=== PATIENT | female | born 1990 | race Caucasian/White ===

== ENCOUNTER → 2021-06-21 09:44 | Outpatient (BNVA) | payer OTHER, SELFPAY | PROVIDERS: Family Provider Registered Nurse; PCP Nurse Practitioner Family; Visit Provider Nurse Practitioner Women's Health | DX: N92.6 Irregular menstruation, unspecified (principal) | CPT/HCPCS: 84702 ==

== ENCOUNTER → 2021-09-23 10:46 | Outpatient (BNVA) | payer OTHER, SELFPAY | PROVIDERS: Family Provider Registered Nurse; PCP Nurse Practitioner Family; Visit Provider Surgery | DX: L05.91 Pilonidal cyst without abscess (principal); L05.01 Pilonidal cyst with abscess; L05.92 Pilonidal sinus without abscess; Z20.822 Contact with and (suspected) exposure to COVID-19 | CPT/HCPCS: 87635 ==

== ENCOUNTER 2021-09-29 06:26 | Day surgery (SDC) | payer OTHER, MEDICAID, SELFPAY ==
[2021-09-28 13:26] VITALS: BMI 41.5
[2021-09-29] VITALS (8 sets, daily range): BP systolic 107–155; BP diastolic 59–98; PULSE 92–101; RESP 16–20; TEMP 36.5–37.1; O2SAT 92–97
[2021-09-29 07:25] LABS: Glucose Point of Care 317 mg/dL (70-110)
[2021-09-29 07:34] LABS: OR HCG Qualitative Urine Negative (Negative)
[2021-09-29] MEDS: sodium chloride 0.9% 1,000 ML 30 ML IV (07:45)
[2021-09-29] MEDS: insulin regular-human 100 units/1 mL 3 UNIT IVP (07:47)
--- NOTE | 2021-09-29 07:50 | W.PM.OPSUD ---
Surgery/Procedure H&P Update DATE OF PROCEDURE: September 29, 2021 DATE H&P PERFORMED: 09/23/21 H&P UPDATE INFORMATION: I have reviewed H&P completed within last 30 days, I have examined patient prior to procedure and No changes to prior documentation PREOP DIAGNOSIS: Pilonidal abscess PLANNED PROCEDURE: Operation Date: 09/29/21 08:00 Proposed Procedures p Pilonidal Cystectomy 55595/L05.91(Not Applicable) - David Farias MD
--- NOTE | 2021-09-29 07:54 | P.ANESASSM_ITS ---
Pre-Anesthetic Assessment Height/Weight: Height 1.65 m Weight 113.398 kg Temp Pulse Resp BP Pulse Ox 98.7 F 92 18 155/98 96 09/29/21 06:55 09/29/21 06:55 09/29/21 06:55 09/29/21 06:55 09/29/21 06:55 Preop Diagnosis: Pilonidal abscess Operation Date: 09/29/21 08:00 Proposed Procedures p Pilonidal Cystectomy 99362/L05.91(Not Applicable) - David Farias MD Was Beta Joseph taken within 24 hours: Yes Was Clonidine taken within 24 hours: N/A Last intake: Intake Last Liquid Date 09/28/21 Last Liquid Time 22:00 Last Solid Date 09/28/21 Last Solid Time 22:00 Social No tobacco Exam alert, oriented x 3, clear to auscultation bilaterally and regular rate & rhythm Airway Submandibular: within normal limits Cervical ROM: within normal limits Mallampati: Class II History/ROS No significant history except as noted and No significant complaints Pulmonary None reported CV/HEM Hypertension None reported Hepatic None reported GI None reported Metabolic Morbid Obesity Anesthetic Plan ASA status: 3 Anesthesia: Anesthesia Evaluation and General Risk of > 500 ml blood loss (7ml/kg in children): No Medications/Allergies Home Medications Medication Instructions Recorded Confirmed Last Taken Type labetalol 100 mg tablet 50 mg PO BID tab 01/14/21 09/29/21 09/29/21 History levonorgestrel 0.15 mg-ethinyl 1 tab PO DAILY #84 tab 09/27/21 09/28/21 Unknown Rx estradiol 0.03 mg tablet (Levora-28) Allergies Allergy/AdvReac Type Severity Reaction Status Date / Time No Known Allergies Allergy Verified 09/28/21 13:25 [facility] Anesthesia Medical History Diabetes Hypertension Pilonidal abscess Surgical History H/O oral surgery Hx of section 04/13/2019-----> primary low transverse delivery performed by Dr. rivas for nonreassuring heart tracing at [facility]. Double layer closure with no extensions. Family History Father Diabetes Hypertension Mother Hypertension Family/Other Breast cancer Maternal Great Aunt-- dx age 70's Denies family history of Colon cancer Ovarian cancer Heart disease Uterine cancer Thyroid disease Stroke Social History Smoking and tobacco status: never smoked Data Anesthesia Cardiac Studies: No Data to Display
--- NOTE | 2021-09-29 08:51 | P.OP_ITS ---
Operative Report Date of procedure: September 29, 2021 Pre-op diagnosis: Recurrent pilonidal abscess Post-op diagnosis: pilonidal cyst with sinus tract x2 Procedure done: 1. Pilonidal cystectomy 2. Intermediate closure in layers of a wound measuring 6 x 2.5 x 2 cm deep Specimens removed/disposition: Excised skin and subcutaneous tissue from the [facility] Surgeon: David Farias Anesthesia: General Condition: stable Disposition: PACU Procedure: The patient was taken to the operating room, intubated under general anesthesia and placed in prone position. The area around the pilonidal cyst was prepped and draped in a sterile manner. Using a lacrimal probe the pilonidal sinuses were probed. Using a 15 blade an elliptical incision measuring 6 cm was made in corporating the pilonidal cyst and sinuses. The subcutaneous tissue was divided down to the fascia using electrocautery and the specimen was sent to pathology. The wound measured 6 x 2.5 x 2.5 cm. Bilateral subcutaneous flaps were created using electrocautery. The wound was irrigated with saline, hemostasis ensured and the wound was closed in layers using interrupted 3-0 Vicryl sutures. The s kin was closed using interrupted 3-0 Prolene suture. Antibiotic cream and sterile dressings were applied. The patient was extubated and transferred to recovery room in stable condition.
[2021-09-29] MEDS: HYDROcodone-acetaminophen 5-325 mg Tablet 1 TAB PO (09:50)
--- NOTE | 2021-09-29 14:22 | ANE.PACU2 ---
Inpatient post-anesthesia follow up: Airway intact: Yes Vital signs: Temperature 97.9 F Pulse Rate 97 Respiratory Rate 18 Blood Pressure 109/65 Pulse Oximetry 96 Oxygen Delivery Me thod Room Air Oxygen Flow Rate 6 Fraction of Inspir ed Oxygen Hydration adequate: Yes Nausea and vomiting: No Pain level: 6 Mental status: Baseline
== END 2021-09-29 10:10 | disposition home or self-care (01) ==
PROVIDERS: Anesthesiology; PCP Nurse Practitioner Family; Visit Provider Surgery
PROC: (CPT 11770; principal; 2021-09-29 08:00)
DX: L05.91 Pilonidal cyst without abscess (principal); E66.01 Morbid (severe) obesity due to excess calories; Z68.41 Body mass index [BMI] 40.0-44.9, adult; E11.9 Type 2 diabetes mellitus without complications; I10 Essential (primary) hypertension; Z82.49 Family history of ischemic heart disease and other diseases of the circulatory system; Z83.3 Family history of diabetes mellitus
CPT/HCPCS: 11770; 36416; 81025; 82962; 84703; 88304; J0690; J1815; J2250; J3010; J3490; J7030

== ENCOUNTER → 2022-09-19 16:16 | Outpatient (BNVA) | payer OTHER, MEDICAID, SELFPAY | PROVIDERS: PCP Nurse Practitioner Family; Visit Provider Nurse Practitioner Women's Health | DX: Z01.419 Encounter for gynecological examination (general) (routine) without abnormal findings (principal); Z78.9 Other specified health status; E11.9 Type 2 diabetes mellitus without complications | CPT/HCPCS: 83036; 86762; 87624 ==

== ENCOUNTER → 2022-12-25 14:14 | Outpatient (BNVA) | payer OTHER, MEDICAID, SELFPAY | PROVIDERS: PCP Nurse Practitioner Family; Visit Provider Nurse Practitioner Women's Health | DX: Z32.00 Encounter for pregnancy test, result unknown (principal) | CPT/HCPCS: 81025 ==

== ENCOUNTER 2023-01-08 12:50 | Outpatient (CLI) | payer OTHER, MEDICAID, SELFPAY ==
--- NOTE | 2023-01-08 13:00 | US_ITS ---
WS: [id number] EARLY OBSTETRICAL ULTRASOUND (<14 WEEKS). HISTORY: O09.899 - Supervision of other high risk pregnancies, unsure of dates. COMPARISON: None available. Single intrauterine gestational sac is identified. Normal decidual reaction. There is a small yolk sa c noted on the transvaginal imaging. No pole or cardiac activity. No subchorionic hemorrhage. G estational sac measurement of 1.2 cm corresponds to gestation of 6 weeks and 1 day. No free fluid. No adnexal masses. US/US OB <= 14 weeks fetus [id number] IMPRESSION: 1. Gestational sac with a mean diameter of 1.2 cm corresponds to gestation of 6 weeks and 1 day. Typically at this age cardiac activity is identified. 2. There is a normal yolk sac but no pole identified or cardiac activity at this time. Recommend one week ultrasound follow-up.
== END 2023-01-08 12:51 | disposition home or self-care (01) ==
LOC: RAD 12:53
PROVIDERS: PCP Nurse Practitioner Family; Visit Provider Nurse Practitioner Women's Health
DX: O09.891 Supervision of other high risk pregnancies, first trimester (principal); Z3A.01 Less than 8 weeks gestation of pregnancy
CPT/HCPCS: 76801; 83036; 84315

== ENCOUNTER → 2023-01-11 08:54 | Outpatient (BNVA) | payer OTHER, MEDICAID, SELFPAY | PROVIDERS: PCP Nurse Practitioner Family; Visit Provider Obstetrics & Gynecology | DX: N92.6 Irregular menstruation, unspecified (principal) | CPT/HCPCS: 84702 ==

== ENCOUNTER → 2023-01-12 14:09 | Outpatient (BNVA) | payer OTHER, MEDICAID, SELFPAY | PROVIDERS: PCP Nurse Practitioner Family; Visit Provider Obstetrics & Gynecology | DX: O09.899 Supervision of other high risk pregnancies, unspecified trimester (principal) | CPT/HCPCS: 80307; 81000; 85027; 86850; 86900; 87086 ==

== ENCOUNTER → 2023-01-22 12:21 | Outpatient (BNVA) | payer OTHER, SELFPAY | PROVIDERS: PCP Nurse Practitioner Family; Visit Provider Obstetrics & Gynecology | DX: Z36.87 Encounter for antenatal screening for uncertain dates (principal); O09.899 Supervision of other high risk pregnancies, unspecified trimester; Z3A.08 8 weeks gestation of pregnancy | CPT/HCPCS: 76817; 81000 ==

== ENCOUNTER → 2023-02-19 15:20 | Outpatient (BNVA) | payer OTHER, SELFPAY | PROVIDERS: PCP Nurse Practitioner Family; Visit Provider Obstetrics & Gynecology | DX: O09.899 Supervision of other high risk pregnancies, unspecified trimester (principal) | CPT/HCPCS: 76801; 86592; 86762; 86803; 87340; 87806 ==

== ENCOUNTER 2023-02-23 15:51 | Outpatient (CLI) | payer OTHER, SELFPAY ==
--- NOTE | 2023-02-23 16:25 | ECG_ITS ---
[facility] Test Date: 2023-02-23 Pat Name: Jeannie Zamora Department: Room: Gender: Female Director Microbiology: : 1990 Requested By: Anson Gill Order Number: [id number] Shakeel MD: Adenike Paul M.D. Measurements Intervals [place] Rate: 70 P: 51 LA: 158 QRS: 32 QRSD: 85 T: 5 QT: 398 QTc: 430 Interpretive Statements SINUS RHYTHM POSSIBLE ANTERIOR MYOCARDIAL INFARCTION , PROBABLY OLD [30 ms Q WAVE IN V3/V4, OR R < 0.2 mV IN V4] No previous ECG available for comparison Electronically Signed On 02-24-2023 6:57:24 CDT by Adenike Paul M.D. [id number]
== END 2023-02-23 15:52 | disposition home or self-care (01) ==
PROVIDERS: PCP Nurse Practitioner Family; Visit Provider Obstetrics & Gynecology
DX: R00.2 Palpitations (principal); R94.31 Abnormal electrocardiogram [ECG] [EKG]
CPT/HCPCS: 93005

== ENCOUNTER → 2023-03-02 13:50 | Outpatient (BNVA) | payer OTHER, SELFPAY | PROVIDERS: PCP Nurse Practitioner Family; Visit Provider Nurse Practitioner Women's Health | DX: O09.899 Supervision of other high risk pregnancies, unspecified trimester (principal); R00.2 Palpitations | CPT/HCPCS: 81000; 84443; 87491; 87591; 87661 ==

== ENCOUNTER → 2023-03-16 12:56 | Outpatient (BNVA) | payer OTHER, SELFPAY | PROVIDERS: PCP Nurse Practitioner Family; Visit Provider Nurse Practitioner Women's Health | DX: O09.899 Supervision of other high risk pregnancies, unspecified trimester (principal); Z86.79 Personal history of other diseases of the circulatory system; Z36.9 Encounter for antenatal screening, unspecified | CPT/HCPCS: 81000; 82105; 87086 ==

== ENCOUNTER 2023-03-26 15:56 | Outpatient (CLI) | payer OTHER, MEDICAID, SELFPAY ==
[2023-03-26 17:48] LABS: Urine Total Protein 4.4 mg/dL (0-150)
[2023-03-26 20:19] LABS: Total Volume, Urine 3000 mL
== END 2023-03-26 15:57 | disposition home or self-care (01) ==
PROVIDERS: Nurse Practitioner Women's Health; PCP Nurse Practitioner Family; Visit Provider Family Medicine
DX: Z86.79 Personal history of other diseases of the circulatory system (principal)
CPT/HCPCS: 81000; 84156

== ENCOUNTER → 2023-04-02 15:00 | Outpatient (BNVA) | payer OTHER, SELFPAY | PROVIDERS: PCP Nurse Practitioner Family; Visit Provider Obstetrics & Gynecology | DX: O09.899 Supervision of other high risk pregnancies, unspecified trimester (principal) | CPT/HCPCS: 81000 ==

== ENCOUNTER → 2023-04-25 12:24 | Outpatient (BNVA) | payer OTHER, SELFPAY | PROVIDERS: PCP Nurse Practitioner Family; Visit Provider Obstetrics & Gynecology | DX: O09.899 Supervision of other high risk pregnancies, unspecified trimester (principal); Z3A.20 20 weeks gestation of pregnancy | CPT/HCPCS: 76805 ==

== ENCOUNTER → 2023-05-17 14:00 | Outpatient (BNVA) | payer SELFPAY | PROVIDERS: PCP Nurse Practitioner Family; Visit Provider Nurse Practitioner Women's Health | DX: O09.899 Supervision of other high risk pregnancies, unspecified trimester (principal); O24.319 Unspecified pre-existing diabetes mellitus in pregnancy, unspecified trimester; Z86.79 Personal history of other diseases of the circulatory system; Z36.2 Encounter for other antenatal screening follow-up; Z3A.24 24 weeks gestation of pregnancy | CPT/HCPCS: 81000 ==

== ENCOUNTER → 2023-05-21 15:23 | Outpatient (BNVA) | payer OTHER, SELFPAY | PROVIDERS: PCP Nurse Practitioner Family; Visit Provider Obstetrics & Gynecology | DX: O09.899 Supervision of other high risk pregnancies, unspecified trimester (principal); Z3A.00 Weeks of gestation of pregnancy not specified | CPT/HCPCS: 76816 ==

== ENCOUNTER → 2023-06-08 13:57 | Outpatient (BNVA) | payer OTHER, SELFPAY | PROVIDERS: PCP Nurse Practitioner Family; Visit Provider Obstetrics & Gynecology | DX: O09.899 Supervision of other high risk pregnancies, unspecified trimester (principal) | CPT/HCPCS: 81000; 85025 ==

== ENCOUNTER → 2023-06-15 14:35 | Outpatient (BNVA) | payer OTHER, SELFPAY | PROVIDERS: PCP Nurse Practitioner Family; Visit Provider Obstetrics & Gynecology | DX: O09.899 Supervision of other high risk pregnancies, unspecified trimester (principal) | CPT/HCPCS: 81000 ==

== ENCOUNTER → 2023-06-22 14:28 | Outpatient (BNVA) | payer OTHER, SELFPAY | PROVIDERS: PCP Nurse Practitioner Family; Visit Provider Obstetrics & Gynecology | DX: O09.899 Supervision of other high risk pregnancies, unspecified trimester (principal) | CPT/HCPCS: 81000 ==

== ENCOUNTER 2023-07-04 18:15 | Outpatient (CLI) | payer OTHER, MEDICAID, SELFPAY ==
[2023-07-04] VITALS (13 sets, daily range): BP systolic 136–170; BP diastolic 76–95; PULSE 72–82; RESP 16; BMI 38.1
[2023-07-04 20:40] LABS: Add Urine Microscopic? NO; Charge for UA Resulting for Rev
[2023-07-04 20:41] LABS: Basophils % 0.3 %; Eosinophils # 0.1 10^3/uL (0.0-0.8); Eosinophils % 1.5 %; Hematocrit 42.4 % (36-47); Lymphocytes # 2.2 10^3/uL (0.8-4.8); Lymphocytes % 22.6 %; Mean Corpuscular HGB Conc 33.3 g/dL (30-55); Mean Corpuscular Hemoglobin 29.2 pg (27-33); Mean Corpuscular Volume 87.8 fl (85-98); Mean Platelet Volume 11.4 fL (7.4-10.4); Monocytes # 0.8 10^3/uL (0.2-0.9); Monocytes % 8.1 %; Neutrophils # 6.46 10^3/uL (1.8-7.7); Neutrophils % 67.2 %; Nucleated Red Blood Cells % 0 %; Platelet Count 222 10^3/cmm (157-399); Red Blood Count 4.83 10^6/uL (3.85-5.65); Red Cell Distribution Width 13.2 % (12.1-15.1); White Blood Count 9.61 10^3/uL (3.29-11.43)
[2023-07-04 20:42] LABS: Bilirubin Urine Neg (Negative); Blood Urine Neg (Negative); Glucose Urine UA Norm (Normal); Ketones Urine Negative (Negative); Leukocyte Esterase Urine Negative (Negative); Nitrate Urine Negative (Negative); Protein Urine Neg (Negative); Specific Gravity, Urine 1.005 (1.005-1.030); Urine Appearance Clear (CLEAR); Urine Color Light yellow (Yellow); Urobilinogen Urine Neg (Negative); pH Urine 6.5 (5-7)
[2023-07-04 21:18] LABS: Alanine Aminotransferase 26 U/L (0-33); Albumin Level 3.8 g/dL (3.5-5.2); Alkaline Phosphatase 39 U/L (35-105); Blood Urea Nitrogen 6 mg/dL (6-20); Calcium 8.9 mg/dL (8.5-10.5); Carbon Dioxide 20 mmol/L (22-29); Chloride 102 mmol/L (98-107); Globulin 3.7 g/dL (1.3-4.6); Glomerular Filtration Rate 187.4 mL/min (90-130); Glucose 78 mg/dL (65-115); Osmolality Calculated 276 mOsm/kg (285-295); Sodium 135 mmol/L (136-145); Total Bilirubin 0.5 mg/dL (0.15-1.2); Total Protein 7.5 g/dL (6.6-8.7); Uric Acid 4.2 mg/dL (2.4-5.7)
[2023-07-04 21:19] LABS: Anion Gap 16.6 (5-19); Aspartate Amino Transferase 27 U/L (0-32); Potassium 3.6 mmol/L (3.5-5.1)
[2023-07-04 21:29] LABS: Urine Creatinine 30 mg/dL (28-217); Urine Protein Random 4 mg/dL
[2023-07-04 21:34] LABS: UPRO/UCREAT Ratio 0.13 mg/mg CR
== END 2023-07-04 22:00 | disposition home or self-care (01) ==
LOC: OPOB 18:22 → OBGYN 21:43
PROVIDERS: Obstetrics & Gynecology; PCP Nurse Practitioner Family; Visit Provider Obstetrics & Gynecology
DX: O16.9 Unspecified maternal hypertension, unspecified trimester (principal); Z3A.00 Weeks of gestation of pregnancy not specified
CPT/HCPCS: 36415; 59025; 80053; 81003; 82570; 84156; 84550; 85025; 99211

== ENCOUNTER → 2023-07-06 07:53 | Outpatient (BNVA) | payer OTHER, SELFPAY | PROVIDERS: PCP Nurse Practitioner Family; Visit Provider Obstetrics & Gynecology | DX: O09.899 Supervision of other high risk pregnancies, unspecified trimester (principal) | CPT/HCPCS: 81000 ==

== ENCOUNTER → 2023-07-10 12:27 | Outpatient (BNVA) | payer OTHER, SELFPAY | PROVIDERS: PCP Nurse Practitioner Family; Visit Provider Obstetrics & Gynecology | DX: O24.913 Unspecified diabetes mellitus in pregnancy, third trimester (principal); Z3A.33 33 weeks gestation of pregnancy | CPT/HCPCS: 76815; 76819 ==

== ENCOUNTER 2023-07-10 12:59 | Outpatient (CLI) | payer OTHER, SELFPAY ==
[2023-07-10 13:00] VITALS: BMI 38.2
[2023-07-10 13:15] VITALS: BP 150/83; PULSE 77
[2023-07-10 13:25] VITALS: RESP 18; TEMP 36.2
[2023-07-10 13:39] VITALS: BP 134/81; PULSE 76
[2023-07-10 13:49] VITALS: BP 134/81; PULSE 76; RESP 18; TEMP 36.2
== END 2023-07-10 13:45 | disposition home or self-care (01) ==
LOC: OPOB 13:03 → OBGYN 13:03
PROVIDERS: PCP Nurse Practitioner Family; Visit Provider Obstetrics & Gynecology
DX: O24.419 Gestational diabetes mellitus in pregnancy, unspecified control (principal); Z3A.00 Weeks of gestation of pregnancy not specified
CPT/HCPCS: 59025; 99211

== ENCOUNTER → 2023-07-13 14:32 | Outpatient (BNVA) | payer OTHER, SELFPAY | PROVIDERS: PCP Nurse Practitioner Family; Visit Provider Obstetrics & Gynecology | DX: O09.899 Supervision of other high risk pregnancies, unspecified trimester (principal) | CPT/HCPCS: 81000 ==

== ENCOUNTER 2023-07-17 12:55 | Outpatient (CLI) | payer OTHER, MEDICAID, SELFPAY ==
[2023-07-17 13:16] VITALS: BP 139/84; PULSE 76; RESP 16; BMI 38.7
[2023-07-17 13:26] VITALS: BP 134/80; PULSE 81
[2023-07-17 13:36] VITALS: BP 136/80; PULSE 76
[2023-07-17 13:38] VITALS: RESP 18
== END 2023-07-17 13:40 | disposition home or self-care (01) ==
LOC: OPOB 12:57 → OBGYN 12:57
PROVIDERS: PCP Nurse Practitioner Family; Visit Provider Obstetrics & Gynecology
DX: O24.419 Gestational diabetes mellitus in pregnancy, unspecified control (principal); Z3A.00 Weeks of gestation of pregnancy not specified
CPT/HCPCS: 59025; 76819

== ENCOUNTER → 2023-07-24 12:37 | Outpatient (BNVA) | payer OTHER, SELFPAY | PROVIDERS: PCP Nurse Practitioner Family; Visit Provider Obstetrics & Gynecology | DX: Z34.03 Encounter for supervision of normal first pregnancy, third trimester (principal) | CPT/HCPCS: 76819 ==

== ENCOUNTER 2023-07-24 13:05 | Outpatient (CLI) | payer OTHER, MEDICAID, SELFPAY ==
[2023-07-24 13:22] VITALS: BP 138/78; PULSE 76
[2023-07-24 13:37] VITALS: BP 136/80; PULSE 76
[2023-07-24 13:45] VITALS: RESP 17
[2023-07-24 13:47] VITALS: BMI 39.6
[2023-07-24 13:52] VITALS: BP 130/77; PULSE 78
== END 2023-07-24 13:58 | disposition home or self-care (01) ==
LOC: OPOB 13:16 → OBGYN 13:18
PROVIDERS: PCP Nurse Practitioner Family; Visit Provider Obstetrics & Gynecology
DX: O24.419 Gestational diabetes mellitus in pregnancy, unspecified control (principal); Z3A.00 Weeks of gestation of pregnancy not specified
CPT/HCPCS: 59025; 99211

== ENCOUNTER → 2023-07-27 08:44 | Outpatient (BNVA) | payer OTHER, SELFPAY | PROVIDERS: PCP Nurse Practitioner Family; Visit Provider Obstetrics & Gynecology | DX: O09.899 Supervision of other high risk pregnancies, unspecified trimester (principal); Z3A.35 35 weeks gestation of pregnancy | CPT/HCPCS: 81000 ==

== ENCOUNTER → 2023-07-31 12:19 | Outpatient (BNVA) | payer OTHER, SELFPAY | PROVIDERS: PCP Nurse Practitioner Family; Visit Provider Obstetrics & Gynecology | DX: O24.313 Unspecified pre-existing diabetes mellitus in pregnancy, third trimester (principal); Z3A.35 35 weeks gestation of pregnancy | CPT/HCPCS: 76819 ==

== ENCOUNTER 2023-07-31 12:54 | Outpatient (CLI) | payer OTHER, MEDICAID, SELFPAY ==
[2023-07-31 13:11] VITALS: BP 142/88; PULSE 76
[2023-07-31 13:31] VITALS: BP 142/92; PULSE 80
[2023-07-31 13:44] VITALS: BP 139/75; PULSE 77
[2023-07-31 13:54] VITALS: BP 125/69; PULSE 71
[2023-07-31 14:01] VITALS: BP 125/69; PULSE 71
== END 2023-07-31 14:00 | disposition home or self-care (01) ==
LOC: OPOB 12:57 → OBGYN 12:59
PROVIDERS: PCP Nurse Practitioner Family; Visit Provider Obstetrics & Gynecology
DX: O24.419 Gestational diabetes mellitus in pregnancy, unspecified control (principal); Z3A.00 Weeks of gestation of pregnancy not specified; O16.9 Unspecified maternal hypertension, unspecified trimester
CPT/HCPCS: 59025; 99211

== ENCOUNTER 2023-08-02 15:05 | Outpatient (CLI) | payer OTHER, MEDICAID, SELFPAY ==
[2023-08-02] VITALS (10 sets, daily range): BP systolic 138–160; BP diastolic 79–94; PULSE 78–93; RESP 15; BMI 39.1
--- NOTE | 2023-08-02 15:40 | USR_ITS ---
PROCEDURE INFORMATION: Exam: US Biophysical Profile Without Non-Stress Test Exam date and time: 08/02/2023 4:15 PM Age: 32 years old Clinical indication: Condition or disease; Other: Hypertension and type2 diabetes; TECHNIQUE: Imaging protocol: US biophysical profile without non-stress testing. COMPARISON: US OB BPP NST [id number] 07/31/2023 12:28 PM FINDINGS: heart rate: 138 bpm Amniotic fluid index: DIVYA is 21.05 cm. Which is within upper range of normal (5-25). Okay me of clock ovary cure BIOPHYSICAL PROFILE: breathing movement (BPP): 2 out of 2. body movement (BPP): 2 out of 2. tone (BPP): 2 out of 2. Amniotic fluid (BPP): 2 out of 2. MATERNAL ANATOMY: Cervix: Cervical length measures 3.65 cm. US/US OB BPP NST 38781 IMPRESSION: Normal biophysical profile 03/13
[2023-08-02 16:05] LABS: Basophils % 0.3 %; Eosinophils # 0.1 10^3/uL (0.0-0.8); Eosinophils % 0.6 %; Hematocrit 39.1 % (36-47); Lymphocytes # 2.4 10^3/uL (0.8-4.8); Lymphocytes % 20.8 %; Mean Corpuscular Hemoglobin 29.4 pg (27-33); Mean Corpuscular Volume 86.5 fl (85-98); Mean Platelet Volume 11.1 fL (7.4-10.4); Monocytes % 8.4 %; Neutrophils % 69.5 %; Nucleated Red Blood Cells % 0 %; Platelet Count 241 10^3/cmm (157-399); Red Blood Count 4.52 10^6/uL (3.85-5.65); Red Cell Distribution Width 12.9 % (12.1-15.1); White Blood Count 11.37 10^3/uL (3.29-11.43)
[2023-08-02 16:41] LABS: Alanine Aminotransferase 14 U/L (0-33); Albumin Level 3.3 g/dL (3.5-5.2); Alkaline Phosphatase 54 U/L (35-105); Blood Urea Nitrogen 11 mg/dL (6-20); Calcium 8.6 mg/dL (8.5-10.5); Carbon Dioxide 20 mmol/L (22-29); Chloride 102 mmol/L (98-107); Globulin 3.4 g/dL (1.3-4.6); Glomerular Filtration Rate 144.9 mL/min (90-130); Glucose 129 mg/dL (65-115); Osmolality Calculated 283 mOsm/kg (285-295); Sodium 136 mmol/L (136-145); Total Bilirubin 0.2 mg/dL (0.15-1.2); Total Protein 6.7 g/dL (6.6-8.7); Uric Acid 5.1 mg/dL (2.4-5.7)
[2023-08-02 16:43] LABS: Anion Gap 18.4 (5-19); Aspartate Amino Transferase 19 U/L (0-32); Potassium 4.4 mmol/L (3.5-5.1)
[2023-08-02 17:03] LABS: Add Urine Microscopic? NO; Charge for UA Resulting for Rev
[2023-08-02 17:25] LABS: Bilirubin Urine Neg (Negative); Blood Urine Neg (Negative); Glucose Urine UA Norm (Normal); Ketones Urine Negative (Negative); Leukocyte Esterase Urine Negative (Negative); Nitrate Urine Negative (Negative); Protein Urine Neg (Negative); Urine Appearance Clear (CLEAR); Urine Color Yellow (Yellow); Urobilinogen Urine Norm (Negative); pH Urine 6 (5-7)
[2023-08-02 17:42] LABS: Urine Creatinine 56 mg/dL (28-217); Urine Protein Random 6 mg/dL
[2023-08-02 17:43] LABS: UPRO/UCREAT Ratio 0.11 mg/mg CR
--- NOTE | 2023-08-02 18:04 | PC.NURSE ---
Prescription called to [facility] pharmacy in [facility] for: Labetalol 100mg BID #60, no refills from Dr Hinton
== END 2023-08-02 18:00 | disposition home or self-care (01) ==
LOC: OPOB 15:09 → OBGYN 15:10
PROVIDERS: PCP Nurse Practitioner Family; Visit Provider Obstetrics & Gynecology
DX: O16.9 Unspecified maternal hypertension, unspecified trimester (principal); Z3A.00 Weeks of gestation of pregnancy not specified
CPT/HCPCS: 59025; 76819; 80053; 81000; 81003; 82570; 84156; 84550; 85025; 87081; 99211

== ENCOUNTER → 2023-08-07 12:36 | Outpatient (BNVA) | payer OTHER, MEDICAID, SELFPAY | PROVIDERS: PCP Nurse Practitioner Family; Visit Provider Obstetrics & Gynecology | DX: Z34.93 Encounter for supervision of normal pregnancy, unspecified, third trimester (principal); E11.9 Type 2 diabetes mellitus without complications; Z3A.38 38 weeks gestation of pregnancy | CPT/HCPCS: 76815; 76819 ==

== ENCOUNTER 2023-08-07 13:15 | Outpatient (CLI) | payer OTHER, MEDICAID, SELFPAY ==
[2023-08-07 13:26] VITALS: BP 159/104; PULSE 82
[2023-08-07 13:42] VITALS: BP 135/83; PULSE 80
[2023-08-07 13:57] VITALS: BP 135/86; PULSE 77
[2023-08-07 14:07] VITALS: BMI 39.1
[2023-08-07 14:12] VITALS: BP 139/86; PULSE 77
[2023-08-07 14:30] VITALS: BP 139/86; PULSE 77
== END 2023-08-07 14:30 ==
LOC: OPOB 13:19 → OBGYN 13:20
PROVIDERS: PCP Nurse Practitioner Family; Visit Provider Obstetrics & Gynecology
DX: O16.9 Unspecified maternal hypertension, unspecified trimester (principal); Z3A.00 Weeks of gestation of pregnancy not specified
CPT/HCPCS: 59025; 99211

== ENCOUNTER 2023-08-10 15:30 | Outpatient (CLI) | payer OTHER, MEDICAID, SELFPAY ==
[2023-08-10 15:56] VITALS: BP 165/93; PULSE 76
[2023-08-10 16:22] LABS: Nitrazine Paper, PH Negative
[2023-08-10 16:30] VITALS: BP 140/86; PULSE 78
[2023-08-10 16:40] LABS: Urine Creatinine 34 mg/dL (28-217); Urine Protein Random 4 mg/dL
[2023-08-10 16:50] VITALS: BP 155/89; PULSE 76
[2023-08-10 16:50] LABS: UPRO/UCREAT Ratio 0.12 mg/mg CR
== END 2023-08-10 17:10 | disposition home or self-care (01) ==
LOC: OPOB 15:44 → OBGYN 16:58
PROVIDERS: PCP Nurse Practitioner Family; Visit Provider Obstetrics & Gynecology
DX: O16.9 Unspecified maternal hypertension, unspecified trimester (principal); Z3A.00 Weeks of gestation of pregnancy not specified
CPT/HCPCS: 59025; 81000; 82570; 83986; 84156; 99211

== ENCOUNTER → 2023-08-14 10:43 | Outpatient (BNVA) | payer OTHER, MEDICAID, SELFPAY | PROVIDERS: PCP Nurse Practitioner Family; Visit Provider Obstetrics & Gynecology | DX: O09.899 Supervision of other high risk pregnancies, unspecified trimester (principal) | CPT/HCPCS: 76819 ==

== ENCOUNTER 2023-08-14 11:00 | Outpatient (CLI) | payer OTHER, MEDICAID, SELFPAY ==
[2023-08-14] VITALS (8 sets, daily range): BP systolic 143–185; BP diastolic 91–101; PULSE 72–83
[2023-08-14 12:22] LABS: Basophils % 0.4 %; Eosinophils # 0.1 10^3/uL (0.0-0.8); Hematocrit 39.8 % (36-47); Lymphocytes # 2.3 10^3/uL (0.8-4.8); Lymphocytes % 21.5 %; Mean Corpuscular HGB Conc 32.9 g/dL (30-55); Mean Corpuscular Volume 88.2 fl (85-98); Mean Platelet Volume 10.7 fL (7.4-10.4); Monocytes # 0.9 10^3/uL (0.2-0.9); Monocytes % 7.9 %; Neutrophils # 7.37 10^3/uL (1.8-7.7); Neutrophils % 68.7 %; Nucleated Red Blood Cells % 0 %; Platelet Count 212 10^3/cmm (157-399); Red Blood Count 4.51 10^6/uL (3.85-5.65); White Blood Count 10.73 10^3/uL (3.29-11.43)
[2023-08-14 12:45] LABS: Add Urine Microscopic? YES; Bilirubin Urine Neg (Negative); Blood Urine Neg (Negative); Glucose Urine UA Norm (Normal); Ketones Urine Negative (Negative); Leukocyte Esterase Urine Negative (Negative); Nitrate Urine Negative (Negative); Protein Urine Neg (Negative); Specific Gravity, Urine 1.015 (1.005-1.030); Urine Appearance SL Hazy (CLEAR); Urine Color Yellow (Yellow); Urobilinogen Urine Norm (Negative); pH Urine 6 (5-7)
[2023-08-14 12:49] LABS: Add Urine Culture? No; Bacteria Urine TRACE /hpf; Mucus Urine TRACE /hpf; RBC Urine 0-4 /hpf (0-2); WBC Urine 0-4 /hpf (0-5)
[2023-08-14 12:50] LABS: Alanine Aminotransferase 11 U/L (0-33); Albumin Level 3.1 g/dL (3.5-5.2); Alkaline Phosphatase 61 U/L (35-105); Anion Gap 15.1 (5-19); Aspartate Amino Transferase 11 U/L (0-32); Blood Urea Nitrogen 9 mg/dL (6-20); Calcium 8.8 mg/dL (8.5-10.5); Carbon Dioxide 22 mmol/L (22-29); Chloride 103 mmol/L (98-107); Globulin 3.4 g/dL (1.3-4.6); Glomerular Filtration Rate 117.4 mL/min (90-130); Glucose 87 mg/dL (65-115); Osmolality Calculated 280 mOsm/kg (285-295); Potassium 4.1 mmol/L (3.5-5.1); Sodium 136 mmol/L (136-145); Total Bilirubin 0.5 mg/dL (0.15-1.2); Total Protein 6.5 g/dL (6.6-8.7); Uric Acid 4.5 mg/dL (2.4-5.7)
[2023-08-14 12:55] LABS: Urine Creatinine 127 mg/dL (28-217); Urine Protein Random 10 mg/dL
[2023-08-14 12:56] LABS: UPRO/UCREAT Ratio 0.08 mg/mg CR
--- NOTE | 2023-08-14 13:00 | PC.NURSE ---
patient stated that she had received written information about pre-elcampsia, reeducated that if she experiences any of the symptoms or has any concerns to return to labor and delivery to be evaluated
== END 2023-08-14 13:02 | disposition home or self-care (01) ==
LOC: OPOB 11:03 → OBGYN 11:07
PROVIDERS: PCP Nurse Practitioner Family; Visit Provider Obstetrics & Gynecology
DX: O24.419 Gestational diabetes mellitus in pregnancy, unspecified control (principal); Z3A.00 Weeks of gestation of pregnancy not specified
CPT/HCPCS: 36415; 59025; 80053; 81001; 82570; 84156; 84550; 85025; 99211

== ENCOUNTER → 2023-08-17 09:57 | Outpatient (BNVA) | payer OTHER, SELFPAY | PROVIDERS: PCP Nurse Practitioner Family; Visit Provider Obstetrics & Gynecology | DX: O09.899 Supervision of other high risk pregnancies, unspecified trimester (principal) | CPT/HCPCS: 81000 ==

== ENCOUNTER → 2023-08-21 12:32 | Outpatient (BNVA) | payer OTHER, MEDICAID, SELFPAY | PROVIDERS: PCP Nurse Practitioner Family; Visit Provider Obstetrics & Gynecology | DX: O24.419 Gestational diabetes mellitus in pregnancy, unspecified control (principal) | CPT/HCPCS: 76819 ==

== ENCOUNTER 2023-08-21 13:52 | Outpatient (CLI) | payer OTHER, SELFPAY ==
[2023-08-21 13:57] VITALS: BP 143/85; PULSE 71
[2023-08-21 14:17] VITALS: BP 140/90; PULSE 75
[2023-08-21 14:32] VITALS: BP 148/92; PULSE 73
== END 2023-08-21 14:49 ==
LOC: OPOB 13:53 → OBGYN 13:54
PROVIDERS: PCP Nurse Practitioner Family; Visit Provider Obstetrics & Gynecology
DX: O24.419 Gestational diabetes mellitus in pregnancy, unspecified control (principal); Z3A.00 Weeks of gestation of pregnancy not specified
CPT/HCPCS: 59025

== ENCOUNTER 2023-08-25 08:17 | Inpatient (IN) | payer OTHER, MEDICAID, SELFPAY ==
[2023-08-24] VITALS (95 sets, daily range): BP systolic 128–205; BP diastolic 64–118; PULSE 63–111; RESP 18; TEMP 36.2; BMI 40.7
[2023-08-24 09:33] LABS: Add Urine Microscopic? NO; Charge for UA Resulting for Rev
[2023-08-24 09:39] LABS: Bilirubin Urine Neg (Negative); Blood Urine Neg (Negative); Glucose Urine UA Norm (Normal); Ketones Urine Negative (Negative); Leukocyte Esterase Urine Negative (Negative); Nitrate Urine Negative (Negative); Protein Urine Neg (Negative); Specific Gravity, Urine 1.005 (1.005-1.030); Urine Appearance Clear (CLEAR); Urine Color Yellow (Yellow); Urobilinogen Urine Neg (Negative); pH Urine 6.5 (5-7)
[2023-08-24 09:42] LABS: Basophils # 0.1 10^3/uL (0.0-0.1); Basophils % 0.4 %; Eosinophils # 0.1 10^3/uL (0.0-0.8); Hematocrit 40.6 % (36-47); Lymphocytes # 2.8 10^3/uL (0.8-4.8); Lymphocytes % 20.2 %; Mean Corpuscular HGB Conc 33.7 g/dL (30-55); Mean Corpuscular Hemoglobin 29.8 pg (27-33); Mean Corpuscular Volume 88.3 fl (85-98); Mean Platelet Volume 11.6 fL (7.4-10.4); Monocytes % 7.3 %; Neutrophils # 9.65 10^3/uL (1.8-7.7); Neutrophils % 70.4 %; Nucleated Red Blood Cells % 0 %; Platelet Count 228 10^3/cmm (157-399); Red Cell Distribution Width 13.1 % (12.1-15.1); White Blood Count 13.71 10^3/uL (3.29-11.43)
[2023-08-24] MEDS: labetalol 5 mg/mL SDV 20mL 20 MG IVP ×3 (09:48→19:33)
[2023-08-24] MEDS: lactated ringers 1,000 ML 125 ML IV (09:49)
[2023-08-24] MEDS: oxytocin 30 UNIT/500 ML BAG IV (09:52)
[2023-08-24 09:59] LABS: UPRO/UCREAT Ratio 0.22 mg/mg CR; Urine Creatinine 18 mg/dL (28-217); Urine Protein Random 4 mg/dL
[2023-08-24 10:00] LABS: Alanine Aminotransferase 12 U/L (0-33); Albumin Level 3.2 g/dL (3.5-5.2); Alkaline Phosphatase 72 U/L (35-105); Anion Gap 17.8 (5-19); Aspartate Amino Transferase 14 U/L (0-32); Blood Urea Nitrogen 14 mg/dL (6-20); Calcium 8.9 mg/dL (8.5-10.5); Carbon Dioxide 19 mmol/L (22-29); Chloride 103 mmol/L (98-107); Globulin 3.5 g/dL (1.3-4.6); Glomerular Filtration Rate 144.9 mL/min (90-130); Glucose 111 mg/dL (65-115); Osmolality Calculated 283 mOsm/kg (285-295); Potassium 3.8 mmol/L (3.5-5.1); Sodium 136 mmol/L (136-145); Total Bilirubin 0.2 mg/dL (0.15-1.2); Total Protein 6.7 g/dL (6.6-8.7); Uric Acid 4.8 mg/dL (2.4-5.7)
--- NOTE | 2023-08-24 10:00 | PC.NURSE ---
pt used her glucose monitor to check blood sugar. blood sugar was 102.
[2023-08-24] MEDS: labetalol 5 mg/mL SDV 20mL 40 MG IVP (10:18)
--- NOTE | 2023-08-24 12:59 | PC.NURSE ---
pt blood sugar is 79 per pts glucose monitor
[2023-08-24] MEDS: dextrose 5%-lactated ringers 1,000 ML 125 ML IV (17:27)
[2023-08-24] MEDS: labetalol 200 mg Tablet 100 MG PO (18:16)
--- NOTE | 2023-08-24 18:16 | PC.NURSE ---
pt sugar 83 per pts glucose monitor.
[2023-08-24] MEDS: magnesium sulfate premix 4 GM/100 ML PREMIX IV (21:20)
[2023-08-24] MEDS: magnesium sulfate premix 20 GM/500 ML BAG IV (21:40)
--- NOTE | 2023-08-24 23:04 | PC.NURSE ---
This RN obtained patient blood glucose at 2130 from patient via personal BG monitor on patient's arm. Patient stated blood glucose was 93.
[2023-08-25] VITALS (54 sets, daily range): BP systolic 104–170; BP diastolic 55–97; PULSE 56–82; RESP 15–18; TEMP 36.4–37.1
--- NOTE | 2023-08-25 02:02 | PC.NURSE ---
This RN obtained patient blood glucose at 0130 from patient via personal BG monitor on patient's arm. Patient stated blood glucose was 99.
[2023-08-25] MEDS: dextrose 5%-lactated ringers 1,000 ML 75 ML IV (04:03)
--- NOTE | 2023-08-25 07:22 | PC.NURSE ---
This RN obtained patient blood glucose at 0700 from patient via personal BG monitor on patient's arm. Patient stated blood glucose was 113.
[2023-08-25] MEDS: magnesium sulfate premix 20 GM/500 ML BAG IV ×2 (07:45→19:18)
--- NOTE | 2023-08-25 07:59 | P.ANESASSM_ITS ---
Pre-Anesthetic Assessment Height/Weight: Height 1.65 m Weight 111.13 kg Temp Pulse Resp BP O2 Del Method 97.1 F L 75 18 164/97 Room Air 08/24/23 17:17 08/25/23 06:52 08/24/23 09:19 08/25/23 06:52 08/25/23 06:52 Operation Date: 08/25/23 09:20 Proposed Procedures p Section(Not Applicable) - Anson Rivas MD Familial anesthetic complications: none Was Beta Joseph taken within 24 hours: N/A Was Clonidine taken within 24 hours: N/A Last intake: > 8hrs Social No alcohol and No tobacco Exam alert, oriented x 3, clear to auscultation bilaterally and regular rate & rhythm Airway Mallampati: Class III Dentition: full CV/HEM Hypertension Metabolic Diabetes Mellitus and Morbid Obesity Anesthetic Plan ASA status: 3 Anesthesia: Regional (specify below) Risk of > 500 ml blood loss (7ml/kg in children): No Medications/Allergies Home Medications Medication Instructions Recorded Confirmed Last Taken Type blood sugar diagnostic (OneTouch #500 ea 01/05/23 08/17/23 Unknown Rx Verio test strips) lancets (OneTouch UltraSoft #500 ea 01/05/23 08/17/23 Unknown Rx Lancets) prenat.vits,nadeem,shd-pmtn-shgrt 1 tab PO DAILY 01/05/23 08/24/23 08/24/23 06:20 History aspirin 81 mg chewable tablet 81 mg PO DAILY 05/04/23 08/24/23 08/24/23 06:20 History flash glucose sensor (FreeStyle #1 ea 06/08/23 08/17/23 Unknown Rx Trini 2 Sensor kit) pen needle, diabetic 31 gauge x #100 ea 07/17/23 08/17/23 Unknown Rx 3/16 (Comfort EZ Pen [place]) labetalol 100 mg tablet 100 mg PO BID 08/02/23 08/24/23 08/24/23 06:20 History insulin NPH isoph U-100 human 100 See Rx Instructions .Route .COMPLEX 08/10/23 08/24/23 08/23/23 18:00 History unit/mL (3 mL) subcutaneous pen (Humulin N NPH U-100 Insulin KwikPen) Allergies Allergy/AdvReac Type Severity Reaction Status Date / Time No Known Allergies Allergy Verified 08/17/23 13:41 Current Medications Generic Name Dose Route Start Last Admin Trade Name Ronnie PRN Reason Stop Dose Admin Lactated Ringer's 1,000 mls @ 999 mls/hr 08/24/23 09:19 08/24/23 09:49 Lactated Ringers IV 125 mls/hr .Q1H1M PRN Administration Per L&D Rescitation Protocol Dextrose/Lactated Ringer's 1,000 mls @ 125 mls/hr 08/24/23 09:30 08/25/23 00:22 Dextrose 5%-Lactated Ringers IV 75 mls/hr .Q8H KRISTEL Infusion Oxytocin 30 unit in 500 mls @ 1 mls/hr 08/24/23 09:30 08/25/23 00:22 Pitocin IV 0 milliunit/min .Q24H KRISTEL 0 mls/hr Titration Protocol 1 MILLIUNIT/MIN Magnesium Sulfate 20 gm in 500 mls @ 50 mls/hr 08/24/23 21:00 08/25/23 07:45 Magnesium Sulfate Premix IV 50 mls/hr .Q10H KRISTEL Administration Dextrose/Lactated Ringer's 1,000 mls @ 125 mls/hr 08/24/23 21:00 08/25/23 04:03 Dextrose 5%-Lactated Ringers IV 75 mls/hr .Q8H KRISTEL Administration Labetalol HCl 20 mg 08/24/23 09:21 08/24/23 19:33 Labetalol 5 Mg/Ml Sdv 20ml IVP 20 mg PRN PRN Administration HYPERTENSION Protocol Labetalol HCl 40 mg 08/24/23 09:21 08/24/23 10:18 Labetalol 5 Mg/Ml Sdv 20ml IVP 40 mg PRN PRN Administration HYPERTENSION Protocol Labetalol HCl 100 mg 08/24/23 18:08 08/24/23 18:16 Labetalol 200 Mg Tablet PO 100 mg BID KRISTEL Administration PFSH Anesthesia Medical History Rubella immune status not known Rubella was immune at 49.3 on 09/19/2022 Hypertension She came off the labetalol in 2020. Diabetes managed by Rhiannon Carmen Surgical History History of excision of pilonidal cyst (09/29/21) Hx of section 04/13/2019-----> primary low transverse delivery performed by Dr. rivas for nonreassuring heart tracing at [facility]. Double layer closure with no extensions. H/O oral surgery Family History Father Diabetes Hypertension Mother Hypertension Family/Other Breast cancer Maternal Great Aunt-- dx age 70's Denies family history of Colon cancer Ovarian cancer Heart disease Uterine cancer Thyroid disease Stroke Social History Smoking and tobacco/nicotine status: never used tobacco/nicotine Substance/Drug Use: never Female Reproductive History : 2 Data Anesthesia 08/24/23 08:33 08/24/23 08:33 Short CBC 08/24/23 Range/Units 08:33 WBC 13.71 H (3.29-11.43) 10^3/uL Hgb 13.70 (11.27-16.99) g/dL Hct 40.6 (36-47) % MCV 88.3 (85-98) fl Plt Count 228 (157-399) 10^3/cmm Neut % (Auto) 70.4 % Neut # (Auto) 9.65 H (1.8-7.7) 10^3/uL BMP 08/24/23 08:33 Sodium 136 Potassium 3.8 Chloride 103 Carbon Dioxide 19 L BUN 14 Creatinine 0.5 Glucose 111 Calcium 8.9 Liver Function 08/24/23 Range/Units 08:33 Total Bilirubin 0.2 (0.15-1.2) mg/dL AST 14 (0-32) U/L ALT 12 (0-33) U/L Alkaline Phosphatase 72 (35-105) U/L Albumin 3.2 L (3.5-5.2) g/dL Urine 08/24/23 Range/Units 08:33 Urine Color Yellow (Yellow) Urine Appearance Clear (CLEAR) Urine pH 6.5 (5-7) Ur Specific [place] 1.005 (1.005-1.030) Urine Protein Neg (Negative) Urine Glucose (UA) Norm (Normal) Urine Ketones Negative (Negative) Urine Nitrate Negative (Negative) Urine Bilirubin Neg (Negative) Ur Leukocyte Esterase Negative (Negative) Blood Bank 08/24/23 08:33 Blood Type A Positive Rho(D) Type Rh positive Antibody Screen Negative Cardiac Studies: 2 No Data to Display
--- NOTE | 2023-08-25 08:00 | PC.NURSE ---
spoke with SUZY Holloway about pre operative IV fluid bolus. orders to keep fluids at 125ml/hr total
[2023-08-25] MEDS: metoclopramide 5 mg/mL SDV 2 mL 10 MG IVP (08:37)
[2023-08-25] MEDS: citric acid-sodium citrate 30 mL UDC PO (08:37)
[2023-08-25] MEDS: famotidine 20 mg/2 mL INJ IVP (08:37)
[2023-08-25] MEDS: lactated ringers 1,000 ML 75 ML IV (08:40)
--- NOTE | 2023-08-25 08:45 | PC.NURSE ---
blood sugar 117 per CGM
[2023-08-25] MEDS: BUPivacaine liposome 266 MG, BUPivacaine 0.25% 30 ML in sodium chloride 0.9% 50 ML INFILTRATI (09:41)
[2023-08-25] MEDS: ceFAZolin 2,000 MG in sodium chloride 0.9% (plus) 50 ML 100 MG IV (09:43)
[2023-08-25 10:48] LABS: Magnesium Level (OB Only) 4.2 mg/dL (5.0-7.5)
--- NOTE | 2023-08-25 11:24 | ANE.PACU2 ---
Inpatient post-anesthesia follow up: Airway intact: Yes Vital signs: Temperature 98.0 F Pulse Rate 75 Respiratory Rate 17 Blood Pressure 164/97 Pulse Oximetry Oxygen Delivery Me thod Room Air Oxygen Flow Rate Fraction of Inspir ed Oxygen Hydration adequate: Yes Nausea and vomiting: No Pain level: 1 Mental status: Baseline
--- NOTE | 2023-08-25 11:34 | PM.OP ---
Operative Report Date of procedure: August 25, 2023 Pre-op diagnosis: Term Gestational diabetes Chronic hypertension Failed induction Post-op diagnosis: Same Malpresentation breech Post-op findings: Oblique breech Procedure done: Repeat delivery Surgeon: Anson Hinton MD Estimated blood loss (mL): 800 IV fluids (mL): 1,200 Complications: Breech presentation Findings: The had turned from vertex to breech presentation. Brief History: Mrs. Zamora 32-year-old female G2, P1 with estimated gestational age term. had been complicated by gestational diabetes well-controlled and chronic hypertension. OB history significant by previous delivery, but she wanted to try for vaginal after delivery. She failed to progress and the patient requested a repeat delivery. Procedure: After assuring informed consent, the patient was taken to the operating room and anesthesia was initiated. She was placed in the dorsal supine position with a left lateral tilt. The abdomen was prepped and draped in the usual sterile manner. A time-out procedure was performed. Preop antibiotics was administered. A Pfannenstiel skin incision was made with the scalpel and carried through to the underlying layer of fascia with the Bovie. The fascia was nicked in the midline and the incision extended laterally with the Lindo scissors. The superior aspect of the fascial incision was then grasped with Megan clamps and elevated and the underlying rectus muscle dissected off bluntly and sharp with lindo scissors dense adhesions. Attention was then turned to the inferior aspect of the incision which, in similar fashion, was grasped and tented up with Megan clamps and the rectus muscle dissected bluntly. The rectus muscles were then in the midline and the peritoneum identified, tented up and entered sharply with Metzenbaum scissors. The peritoneal incision was then extended superiorly and inferiorly with good visualization of the bladder. The Nicolas O retractor was then inserted and the vesicouterine peritoneum identified, grasped with pickups and entered sharply with Metzenbaum scissors. This incision was then extended laterally and the bladder flap created digitally. The uterus incised in a low transverse fashion with the scalpel. The uterine incision was then extended with the bandage scissors. The was noted that he had changed position and was oblique breech presentation he was then delivered in the breech presentation atraumatically. He brought the tosha breech out to just above the umbilicus. While supporting the body, then pressure was exerted in the popliteal space of the knee. Then flexion of the knee follows, and the lower leg is swept medially down and out of the vagina using the Pinard maneuver. Then with gentle downward and outward traction of the infant until the scapula and axilla are visible. With a towel grasping the hips, and gently rotated the baby counterclockwise and then clockwise, with the shoulder blades showing. Using a free hand, I found the right shoulder and swept the upper arm down across the chest and out. I did the same with the left shoulder. With constant pressure to keep the head flexed. With one final push, the mother delivered the head. The nose and the mouth were suctioned with bulb and the cord clamped and cut. The cord was normal and had three vessels. Amniotic fluid was clear. The placenta was then removed manually and the uterus exteriorized and cleared of all clots and debris. The uterine incision was repaired with 0 Vicryl in a running-locked fashion. A second layer of the same suture was used to obtain excellent hemostasis. The gutters were cleared of all clots. The uterus was then returned to the abdomen. The bladder flap was then reapproximated using Baseball stitch fashion with 0 Vicryl. The rectus muscles were approximated with 3-0 chromic gut. The fascia was reapproximated with 0 Vicryl in an interrupted running fashion. Then the adipose layer was infiltrated with Exparell for pain management and reaproximated with plain gut in a running fashion. Then the skin was closed with Insorb?s subcuticular absorbable edgar. The patient tolerated the procedure well. The sponge, lap and needle counts were correct times three.
--- NOTE | 2023-08-25 11:40 | PC.NURSE ---
PT to OB10 from OR via bed. Oriented to room/call light. Instructed not to try to get out of bed without assistance.
--- NOTE | 2023-08-25 12:10 | SUR.OPER ---
PT HAD CHRONIC HYPERTENSION WELL.
--- NOTE | 2023-08-25 13:00 | PC.NURSE ---
BLOOD SUGAR 100 PER PT CGM
[2023-08-25] MEDS: dextrose 5%-lactated ringers 1,000 ML 125 ML IV (13:08)
[2023-08-25] MEDS: ketorolac 30 mg/mL INJ IVP ×2 (13:09→18:26)
[2023-08-25] MEDS: ondansetron 2 mg/ML SDV 2 mL 4 MG IVP (13:10)
[2023-08-25 16:28] LABS: Magnesium Level (OB Only) 5.6 mg/dL (5.0-7.5)
--- NOTE | 2023-08-25 17:30 | PC.NURSE ---
blood sugar 100 per pt CGM
[2023-08-25] MEDS: labetalol 200 mg Tablet 100 MG PO (18:25)
[2023-08-25] MEDS: docusate sodium 100 mg Capsule PO (18:25)
[2023-08-25] MEDS: ferrous sulfate EC 325 mg Tablet PO (18:26)
[2023-08-25] MEDS: insulin nph human 100 units/1 mL 12 UNIT SUBCUT (18:26)
[2023-08-25 21:19] LABS: Hematocrit 32.9 % (36-47); Mean Corpuscular HGB Conc 33.1 g/dL (30-55); Mean Corpuscular Hemoglobin 29.5 pg (27-33); Mean Corpuscular Volume 88.9 fl (85-98); Mean Platelet Volume 10.6 fL (7.4-10.4); Platelet Count 202 10^3/cmm (157-399); Red Cell Distribution Width 13.2 % (12.1-15.1); White Blood Count 15.07 10^3/uL (3.29-11.43)
--- NOTE | 2023-08-25 21:22 | PC.NURSE ---
This RN assisted pt to chair at approximately 2115. Pt tolerated well. This staff writer asked pt to check her blood glucose from her monitor on her arm, pt report blood glucose 154.
[2023-08-25 21:42] LABS: Magnesium Level (OB Only) 5.2 mg/dL (5.0-7.5)
[2023-08-26] VITALS (14 sets, daily range): BP systolic 91–145; BP diastolic 53–88; PULSE 59–75; RESP 15–18; TEMP 36.2–36.8; O2SAT 98
[2023-08-26] MEDS: ketorolac 30 mg/mL INJ IVP ×2 (00:38→05:14)
[2023-08-26] MEDS: lanolin oint 7 gm 1 APPLIC TOPICAL (02:37)
[2023-08-26] MEDS: dextrose 5%-lactated ringers 1,000 ML 75 ML IV (02:38)
--- NOTE | 2023-08-26 03:58 | PC.NURSE ---
This gag writer to room at approximately 0120. Pt blood glucose reads 99 on pt CGM moniter.
[2023-08-26 04:05] LABS: Magnesium Level (OB Only) 5.5 mg/dL (5.0-7.5)
[2023-08-26] MEDS: magnesium sulfate premix 20 GM/500 ML BAG IV (05:13)
--- NOTE | 2023-08-26 05:46 | PC.NURSE ---
Pt reports blood glucose per CGM monitor 95
[2023-08-26] MEDS: ferrous sulfate EC 325 mg Tablet PO ×2 (08:31→18:15)
[2023-08-26] MEDS: docusate sodium 100 mg Capsule PO ×2 (08:31→18:15)
[2023-08-26] MEDS: labetalol 200 mg Tablet 100 MG PO ×2 (08:32→18:15)
[2023-08-26] MEDS: prenatal vitamin Capsule 1 CAP PO (08:32)
[2023-08-26] MEDS: aspirin 81 mg Chew Tablet PO (08:32)
[2023-08-26] MEDS: HYDROcodone-acetaminophen 5-325 mg Tablet PO (10:53)
--- NOTE | 2023-08-26 12:27 | P.PN_ITS ---
Subjective 2 Subjective: Mrs. Zamora 32-year-old female is status post repeat low-transverse delivery at term. Vitals/I&O/Wt Last Vital Signs Temp 98.2 F 08/27/23 04:00 Pulse 80 08/27/23 04:00 Resp 18 08/27/23 04:00 BP 154/100 08/27/23 04:15 Pulse Ox 97 08/27/23 04:00 O2 Del Method Room Air 08/27/23 04:00 08/26/23 08/27/23 08/27/23 22:59 06:59 14:59 Intake Total 0 / 3291.667 Output Total 1800 / 4100 Balance -1800 / -808.333 Physical Exam 2 Narrative: GA; alert and oriented x 3 HEENT: normal Breasts: engorged Nipples - skin intact Lungs; clear to auscultation Heart: regular rhythm, no murmurs. Abd: Appropriately tender. BS+. Uterine fundus below umbilicus. No Fundal Tenderness. minimal tenderness, incision clean and dry, no redness, pain or edema. Perineum: normal lochia. Extremities: no edema, no cyanosis, no tenderness. Urinary Catheter Management: Russell Latex Free: Cath Placed During This Visit: yes, but has since been removed by the nurse Reason for Continuing Indwelling Catheter: Decision to DC Catheter Urinary Catheter Date of Insertion: 08/24/23 Urinary Catheter Time of Insertion: 21:59 Date Urinary Catheter Removed: 08/26/23 Time Urinary Catheter Discontinued: 10:05 Data 08/25/23 21:02 08/24/23 08:33 A&P Assessment and plan (1) delivery due to maternal disorder, delivered, current hospitalization: Ms. Zamora 32-year-old female is status post repeat delivery postoperative day 1. complicated by gestational diabetes and chronic hypertension. She had been admitted for induction and Tolac.but she failed to progress adequately. Upon admission and OB ultrasound was performed and confirmed presentation cephalic. Biophysical Profile 4 days before admission also showed presentation cephalic. At the time of delivery the had turned and it was delivered in breech presentation. She is afebrile hemodynamically stable. Tolerating diet well. Ambulating without difficulty. Pain well under control. Plan Continue postoperative observation Monitor blood pressure Monitor glucose Attestations 2 Medical Necessity Statement*: In my professional opinion poor admitting diagnosis Coding Level of Care Code Acute Code for Chg Fwd Diagnoses delivery due to maternal disorder, delivered, current hospitalization O99.892
--- NOTE | 2023-08-26 12:35 | PC.NURSE ---
Pt up to bathroom without difficulty. Void 600ml. Michelle care performed by pt. Pad changed. Pt then ambulate to chair and remains up in chair eating lunch. Ice water refilled, bed linens changed.
--- NOTE | 2023-08-26 12:36 | PC.NURSE ---
Pt blood sugar prior to eating lunch 95 per CGM
--- NOTE | 2023-08-26 14:45 | PC.NURSE ---
Post Prandial blood sugar 129
[2023-08-26] MEDS: ibuprofen 800 mg tablet PO ×2 (15:41→20:34)
[2023-08-26] MEDS: insulin nph human 100 units/1 mL 12 UNIT SUBCUT (18:16)
--- NOTE | 2023-08-26 18:20 | PC.NURSE ---
Blood sugar prior to eating dinner 91 per CGM
[2023-08-26] MEDS: flu vacc pf 2023-24 (6 mos+) 60 MCG IM (20:31)
--- NOTE | 2023-08-26 20:35 | PC.NURSE ---
POST MEAL BLOOD SUGAR 114 PER PT CGM MONITOR ON RIGHT ARM AT APPROX 2030
--- NOTE | 2023-08-26 21:31 | PC.NURSE ---
This RN and ADE Tony at bedside assisting with latch/position. Answered questions regarding how often to feed, how to arouse to wake up, and when to know if parent should supplement with formula. Encouraged mom to do breast messaging prior to starting feed. Educated mom on how many wet/dirty diapers should have with feedings.
[2023-08-27 04:00] VITALS: BP 163/97; PULSE 80; RESP 18; TEMP 36.8; O2SAT 97
[2023-08-27 04:15] VITALS: BP 154/100
--- NOTE | 2023-08-27 09:47 | PM.OBGYDC ---
Discharge Providers PRECISION ASSEMBLER BENCH Date of Admission: 08/25/23 08:17 Date of Discharge: 08/27/23 Attending Provider at Admission: Anson Hinton MD Attending Provider at Discharge: Anson Hinton MD Primary Care Provider: Rhiannon Carmen Diagnoses at Discharge Discharge Diagnosis (1) delivery due to maternal disorder, delivered, current hospitalization: Status: Acute Reason for Visit Reason for Visit: Induction Hospital Course Hospital Course Mrs. Zamora 32-year-old female G2, P1 with a term complicated by chronic hypertension and gestational diabetes well-controlled had been admitted for induction as she wanted a trial of labor after delivery. An OB ultrasound had been performed at bedside confirming cephalic presentation. She was started with oxytocin induction and after over 24 hours with oxytocin no cervical changes were noted. During induction her blood pressure had reached severe blood pressure and she was treated with hypertension medication per preeclampsia protocol. Preeclampsia workup had been negative. The patient and her were counseled regarding the no progression of labor and she requested a repeat delivery. At the time of delivery open incision of the uterus fetus it was noted the infant to be in breech presentation. Biophysical profile 4 days prior induction also reported cephalic presentation. delivery was performed without complication. Postoperatively observation had been uneventful. She is afebrile hemodynamically stable postoperative day 2. Tolerating diet well. Ambulating without difficulty. Continue on hypertensive medication. She was counseled regarding pelvic rest for 6 weeks (no sex, no tampons, no vaginal douches). Return to the emergency room if any fever, increased bleeding or pain. Information Peripartum Data: Infant Delivery Method: Physical Exam Narrative: GA; alert and oriented x 3 HEENT: normal Breasts: engorged Nipples - skin intact Lungs; clear to auscultation Heart: regular rhythm, no murmurs. Abd: Appropriately tender. BS+. Uterine fundus below umbilicus. No Fundal Tenderness. minimal tenderness, incision clean and dry, no redness, pain or edema. Perineum: normal lochia. Extremities: no edema, no cyanosis, no tenderness. History History History 2 Term 1 0 Miscarriages/Ectopic 0 Living Children 1 Discharge Data Studies Completed and Pending Laboratory Results WBC 15.07 10^3/uL (3.29-11.43) H 08/25/23 21:02 RBC 3.70 10^6/uL (3.85-5.65) L 08/25/23 21:02 Hgb 10.90 g/dL (11.27-16.99) L 08/25/23 21:02 Hct 32.9 % (36-47) L 08/25/23 21:02 MCV 88.9 fl (85-98) 08/25/23 21:02 MCH 29.5 pg (27-33) 08/25/23 21:02 MCHC 33.1 g/dL (30-55) 08/25/23 21:02 RDW 13.2 % (12.1-15.1) 08/25/23 21:02 Plt Count 202 10^3/cmm (157-399) 08/25/23 21:02 MPV 10.6 fL (7.4-10.4) H 08/25/23 21:02 Neut % (Auto) 70.4 % 08/24/23 08:33 Lymph % (Auto) 20.2 % 08/24/23 08:33 [place] % (Auto) 7.3 % 08/24/23 08:33 Eos % (Auto) 1.0 % 08/24/23 08:33 Baso % (Auto) 0.4 % 08/24/23 08:33 Neut # (Auto) 9.65 10^3/uL (1.8-7.7) H 08/24/23 08:33 Lymph # (Auto) 2.8 10^3/uL (0.8-4.8) 08/24/23 08:33 [place] # (Auto) 1.0 10^3/uL (0.2-0.9) H 08/24/23 08:33 Eos # (Auto) 0.1 10^3/uL (0.0-0.8) 08/24/23 08:33 Baso # (Auto) 0.1 10^3/uL (0.0-0.1) 08/24/23 08:33 Nucleated RBC % (auto) 0 % 08/24/23 08:33 Nucleated RBCs # 0.0 /100WBC 08/24/23 08:33 Sodium 136 mmol/L (136-145) 08/24/23 08:33 Potassium 3.8 mmol/L (3.5-5.1) 08/24/23 08:33 Chloride 103 mmol/L (98-107) 08/24/23 08:33 Carbon Dioxide 19 mmol/L (22-29) L 08/24/23 08:33 Anion Gap 17.8 (5-19) 08/24/23 08:33 BUN 14 mg/dL (6-20) 08/24/23 08:33 Creatinine 0.5 mg/dL (0.5-0.9) 08/24/23 08:33 GFR Calculation 144.9 mL/min (90-130) H 08/24/23 08:33 Glucose 111 mg/dL (65-115) 08/24/23 08:33 Calculated Osmolality 283 mOsm/kg (285-295) L 08/24/23 08:33 Uric Acid 4.8 mg/dL (2.4-5.7) 08/24/23 08:33 Calcium 8.9 mg/dL (8.5-10.5) 08/24/23 08:33 Magnesium 5.5 mg/dL (5.0-7.5) 08/26/23 03:30 Total Bilirubin 0.2 mg/dL (0.15-1.2) 08/24/23 08:33 AST 14 U/L (0-32) 08/24/23 08:33 ALT 12 U/L (0-33) 08/24/23 08:33 Alkaline Phosphatase 72 U/L (35-105) 08/24/23 08:33 Total Protein 6.7 g/dL (6.6-8.7) 08/24/23 08:33 Albumin 3.2 g/dL (3.5-5.2) L 08/24/23 08:33 Globulin 3.5 g/dL (1.3-4.6) 08/24/23 08:33 Urine Color Yellow (Yellow) 08/24/23 08:33 Urine Appearance Clear (CLEAR) 08/24/23 08:33 Urine pH 6.5 (5-7) 08/24/23 08:33 Ur Specific Martha 1.005 (1.005-1.030) 08/24/23 08:33 Urine Protein Neg (Negative) 08/24/23 08:33 Urine Glucose (UA) Norm (Normal) 08/24/23 08:33 Urine Ketones Negative (Negative) 08/24/23 08:33 Urine Blood Neg (Negative) 08/24/23 08:33 Urine Nitrate Negative (Negative) 08/24/23 08:33 Urine Bilirubin Neg (Negative) 08/24/23 08:33 Urine Urobilinogen Neg mg/dL (Negative) 08/24/23 08:33 Ur Leukocyte Esterase Negative (Negative) 08/24/23 08:33 U Random Total Protein 4 mg/dL 08/24/23 08:33 Urine Creatinine 18 mg/dL (28-217) L 08/24/23 08:33 Protein/Creatinin Ratio 0.22 mg/mg CR 08/24/23 08:33 Blood Type A Positive 08/24/23 08:33 Rho(D) Type Rh positive 08/24/23 08:33 Antibody Screen Negative 08/24/23 08:33 Vitals Last Vital Signs Temp 98.2 F 08/27/23 04:00 Pulse 80 08/27/23 04:00 Resp 18 08/27/23 04:00 BP 154/100 08/27/23 04:15 Pulse Ox 97 08/27/23 04:00 O2 Del Method Room Air 08/27/23 04:00 Results Labs OB ([facility]): Obstetrics US 05/21/23 Obstetrics US/Biophysical Profile 08/21/23 Blood Type A Positive 08/24/23 Antibody Screen Negative 08/24/23 Hct 32.9 % (36-47) L 08/25/23 Hgb 10.90 g/dL (11.27-16.99) L 08/25/23 Rho(D) Type Rh positive 08/24/23 Plt Count 202 10^3/cmm (157-399) 08/25/23 Hep Bs Antigen Non-reactive (Nonreactive) 02/19/23 Hepatitis C Antibody Non-reactive (Nonreactive) 02/19/23 Rubella IgG Antibody 39.3 IU/mL (0.0-10.0) H 02/19/23 RPR Nonreactive (Nonreactive) 02/19/23 HIV 1&2 Ab & HIV 1 Ag Non-reactive (Non-Reactiv) 02/19/23 TSH 1.90 uIU/mL (0.27-4.20) 03/02/23 Hemoglobin A1c 5.0 % (4.0-6.0) 01/08/23 Uric Acid 4.8 mg/dL (2.4-5.7) 08/24/23 Ser , Semi-Qnt 85063.00 mIU/mL 01/11/23 HCG, Qual Negative (Negative) 12/25/22 Urine Opiates Screen Negative ng/mL (Negative) 01/12/23 Ur Barbiturates Screen Negative ng/mL (Negative) 01/12/23 Ur Phencyclidine Scrn Negative ng/mL (Negative) 01/12/23 Ur Amphetamines Screen Negative ng/mL (Negative) 01/12/23 U Benzodiazepines Scrn Negative ng/mL (Negative) 01/12/23 Urine Cocaine Screen Negative ng/mL (Negative) 01/12/23 U Marijuana (THC) Screen Negative ng/mL (Negative) 01/12/23 Micro Urine Specimen 03/16/23 Pap Smear Interpret See note 09/19/22 Discharge Plan Discharge Patient Disposition: Home Condition: Stable Prescriptions: New acetaminophen 325 mg capsule 325 mg PO Q4H PRN (Reason: fever or pain) Qty: 60 0RF ferrous sulfate [Iron (ferrous sulfate)] 325 mg (65 mg iron) tablet 325 mg PO BID Qty: 30 0RF ibuprofen 800 mg tablet 800 mg PO TID PRN (Reason: pain) Qty: 60 0RF Continued prenat.vits,nadeem,dxn-wwmx-lotdq Tablet 1 tab PO DAILY (DME) OneTouch Verio test strips Strip See Rx Instructions .Route Qty: 500 0RF Rx Instructions: check bs at least 6 times/day (DME) lancets [OneTouch UltraSoft Lancets] Misc See Rx Instructions .Route Qty: 500 0RF Rx Instructions: to check bs at least 6 times/day aspirin 81 mg tablet,chewable 81 mg PO DAILY Humulin N NPH Insulin KwikPen 100 unit/mL (3 mL) insulin pen See Rx Instructions .ROUTE .COMPLEX Dose Instruction: INJECT 4 UNITS SUBCUTANEOUSLY IN THE EVENING Rx Instructions: INJECT 12 UNITS SUBCUTANEOUSLY IN THE EVENING (DME) FreeStyle Trini 2 Sensor Kit See Rx Instructions .Route Qty: 1 10RF Rx Instructions: As directed (DME) pen needle, diabetic [Comfort EZ Pen [place]] 31 gauge x 3/16 needle See Rx Instructions .Route Qty: 100 2RF Rx Instructions: As directed labetalol 100 mg Tablet 100 mg PO BID Qty: 90 3RF Discharge Orders: Discharge Order (Routine); Ordered 08/27/23 Ordered By: Anson Hinton Referrals: Anson Hinton MD [Physician] - 2 weeks Discharge Diet: Usual diet Discharge Activity: Limit activity as instructed Patient Instructions: Choosing Between Vaginal After () or Repeat... (GEN), Caring for Your Baby (GEN), TTN (Transient Tachypnea of ) (IP), Your [place]'s Appearance (GEN), (GEN), Opioid Safety Activity Restrictions/Additional Instructions: 1. Please call [facility] on next working day to make your post-operative appointment in 2 weeks. 2. Please stay home until you come back to the clinic on first post-hospatilization check up. 3. Please follow instructions on your medications CAREFULLY. 4. If you have abdominal incision, do not cover it unless dressing is necessary because of drainage. OK to shower, but avoid bath. Leave steri-strips until they fall off. If they are still on one week after surgery, you may remove them. 5. If you had vaginal surgery or vaginal repair, Dr. Hinton may instruct you to take SITZ bath. 6. Yellow, blood tinged odorous vaginal discharge is usually normal after hysterectomy or vaginal surgeries. 7. No SEXUAL INTERCOURSE, tampons, or douches until you are completely released from the post-operative care. 8. Avoid constipation by eating right and maybe using some Metamucil or Milk of Magnesia. 9. All prescription refills are given during the working hours. Please do no wait till it runs out. Call the clinic at [phone] before your medication runs out. The clinic will get in touch with your doctor to prescribe medications if necessary. 10. Please remain within 40 mile radius from our hospital because emergencies do happen now and then during the post-operative period. 11. If you have stairs at home, take one step at a time slowly and minimize the number of trips. It helps to stay in one floor for the next few days. No lifting except what you can lift by one hand until you are released from the post-operative care. 12. Driving is discouraged until you are well healed. It may be 3-4 weeks before you feel strong enough to drive. You should be able to turn and look through the rear window without pain and you should be able to push the brake pedal very hard without pain before you drive. No fast rules, but SAFETY should be your primary concern. DO NOT drive if you are on sedating medications such as narcotics. 13. Call the clinic (during working hours) to make urgent appointment or go to the Emergency room, if any of the following occurs: i. Vaginal bleeding becomes heavy, more than a period. ii. Incision becomes red and sore, or drains pus. iii. Your TEMPERATURE is over 100.4F or you have chill. iv. IV site becomes red and swollen (a little ``knot?? is usually OK) v. Persistent nausea and vomiting vi. Persistent constipation or diarrhea vii. Rash or allergic reaction to medications. Discharge Attestations PRECISION ASSEMBLER BENCH Time Spent in Discharge Care*: greater than 30 min Coding Level of Care Code Acute Code for Chg Fwd Diagnoses delivery due to maternal disorder, delivered, current hospitalization O99.892
[2023-08-27] MEDS: aspirin 81 mg Chew Tablet PO (09:52)
[2023-08-27] MEDS: prenatal vitamin Capsule 1 CAP PO (09:52)
[2023-08-27] MEDS: labetalol 200 mg Tablet 100 MG PO (09:52)
[2023-08-27] MEDS: ferrous sulfate EC 325 mg Tablet PO (09:53)
[2023-08-27] MEDS: docusate sodium 100 mg Capsule PO (09:53)
[2023-08-27] MEDS: ibuprofen 800 mg tablet PO (09:55)
[2023-08-27 10:45] VITALS: BP 146/86; PULSE 73; RESP 16; TEMP 36.7
[2023-08-27 14:39] VITALS: BP 149/85; PULSE 70; RESP 16; TEMP 36.9
[2023-08-27 15:06] VITALS: BP 149/85; PULSE 70; RESP 16; TEMP 36.9
== END 2023-08-27 15:10 | disposition home or self-care (01) | DRG 787 ==
LOC: OPOB 08:18 → OBGYN 08:18
PROVIDERS: Admitting Provider Obstetrics & Gynecology; PCP Nurse Practitioner Family; Visit Provider Obstetrics & Gynecology
PROC: 10D00Z1 Extraction of Products of Conception, Low, Open Approach (ICD-10-PCS; CPT 59514; principal; 2023-08-25 09:00)
DX: O34.211 Maternal care for low transverse scar from previous cesarean delivery (principal); O10.02 Pre-existing essential hypertension complicating childbirth; N85.8 Other specified noninflammatory disorders of uterus; Z3A.39 39 weeks gestation of pregnancy; Z37.0 Single live birth; O61.0 Failed medical induction of labor; O24.424 Gestational diabetes mellitus in childbirth, insulin controlled; O32.1XX0 Maternal care for breech presentation, not applicable or unspecified
CPT/HCPCS: 36415; 51702; 59025; 59409; 80053; 81003; 82570; 83735; 84156; 84550; 85025; 85027; 86850; 86900; 90471; 90686; 96372; 96374; 96376; 98960; 99211; C9290; J0690; J1815; J1885; J2274; J2405; J2590; J2765; J3010; J3475; J3490; J7120; J7121

== ENCOUNTER → 2023-10-05 11:41 | Outpatient (BNVA) | payer OTHER, SELFPAY | PROVIDERS: PCP Nurse Practitioner Family; Visit Provider Obstetrics & Gynecology | DX: O09.899 Supervision of other high risk pregnancies, unspecified trimester (principal) | CPT/HCPCS: 81025 ==

== ENCOUNTER → 2023-12-20 10:58 | Outpatient (BNVA) | payer OTHER, SELFPAY | PROVIDERS: PCP Registered Nurse; Visit Provider Registered Nurse | DX: E11.9 Type 2 diabetes mellitus without complications (principal) | CPT/HCPCS: 80053; 83036 ==

== ENCOUNTER → 2024-03-02 13:30 | Outpatient (BNVA) | payer OTHER, SELFPAY | PROVIDERS: PCP Registered Nurse; Visit Provider Emergency Medicine | DX: O26.899 Other specified pregnancy related conditions, unspecified trimester (principal); J06.9 Acute upper respiratory infection, unspecified | CPT/HCPCS: 87400; 87426 ==

== ENCOUNTER 2024-05-08 20:56 | Emergency (ER) | payer OTHER, SELFPAY ==
[2024-05-08] VITALS (9 sets, daily range): BP systolic 158–202; BP diastolic 88–159; PULSE 67–109; RESP 16–20; TEMP 36.8; O2SAT 94–100; BMI 40.4
--- NOTE | 2024-05-08 21:17 | XRR_ITS ---
PROCEDURE INFORMATION: Exam: XR Chest Exam date and time: 05/08/2024 9:42 PM Age: 33 years old Clinical indication: Pain; Chest pressure; Additional info: Chest pain TECHNIQUE: Imaging protocol: Radiologic exam of the chest. Views: 1 view. COMPARISON: No relevant prior studies available. FINDINGS: Lungs: Unremarkable. No consolidation. Pleural spaces: Unremarkable. No pleural effusion. No pneumothorax. Heart/Mediastinum: Unremarkable. No cardiomegaly. Bones/joints: Unremarkable. XR/XR chest 1V portable [id number] IMPRESSION: No acute findings.
--- NOTE | 2024-05-08 21:17 | ECG_ITS ---
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 Measurements Intervals [place] Rate: 85 P: 63 CO: 160 QRS: 37 QRSD: 90 T: 33 QT: 351 QTc: 420 Interpretive Statements SINUS RHYTHM POSSIBLE LEFT ATRIAL ENLARGEMENT [-0.1mV P-WAVE IN V1/V2] Compared to ECG 02/23/2023 16:13:10 Myocardial infarct finding no longer present Electronically Signed On 05-10-2024 20:47:28 CDT by Kailash Esqueda M.D. [id number]
[2024-05-08 21:39] LABS: Basophils % 0.5 %; Eosinophils # 0.2 10^3/uL (0.0-0.8); Eosinophils % 1.8 %; Lymphocytes # 3.5 10^3/uL (0.8-4.8); Lymphocytes % 41.7 %; Mean Corpuscular HGB Conc 33.4 g/dL (30-55); Mean Corpuscular Hemoglobin 28.6 pg (27-33); Mean Corpuscular Volume 85.6 fl (85-98); Mean Platelet Volume 10.1 fL (7.4-10.4); Monocytes # 0.7 10^3/uL (0.2-0.9); Monocytes % 8.3 %; Neutrophils # 3.93 10^3/uL (1.8-7.7); Neutrophils % 47.5 %; Nucleated Red Blood Cells % 0 %; Platelet Count 247 10^3/cmm (157-399); Red Blood Count 5.14 10^6/uL (3.85-5.65); Red Cell Distribution Width 12.3 % (12.1-15.1); White Blood Count 8.28 10^3/uL (3.29-11.43)
[2024-05-08 21:53] LABS: Troponin(5th) Baseline 12 ng/L (0-10)
[2024-05-08 21:58] LABS: Alanine Aminotransferase 27 U/L (0-33); Albumin Level 4.1 g/dL (3.5-5.2); Alkaline Phosphatase 35 U/L (35-105); Aspartate Amino Transferase 24 U/L (0-32); Blood Urea Nitrogen 10 mg/dL (6-20); Calcium 9.1 mg/dL (8.5-10.5); Carbon Dioxide 21 mmol/L (22-29); Chloride 98 mmol/L (98-107); Creatinine Clr Calc Pharmacy 111.9366; Globulin 2.9 g/dL (1.3-4.6); Glucose 440 mg/dL (65-115); Lipase 55 U/L (13-60); Osmolality Calculated 296 mOsm/kg (285-295); Sodium 134 mmol/L (136-145); Total Bilirubin 0.2 mg/dL (0.15-1.2)
[2024-05-08 22:09] LABS: Anion Gap 19.3 (5-19); Potassium 4.3 mmol/L (3.5-5.1)
[2024-05-08] MEDS: hyDRALAzine 20 mg/mL INJ 1 mL IVP (22:12)
--- NOTE | 2024-05-08 22:45 | ED_ITS ---
HPI - Chest Pain 2 General: Chief Complaint: Chest Pain Stated Complaint: CP left arm and between shoulder blades Time Seen by Provider: 05/08/24 21:12 History of Present Illness: Patient presents to the ER with complaints of having bilateral chest pain that radiates into both arms. She states is worse when she lays down. Says started after eating dinner tonight. She did take 2 baby aspirin's prior to coming in which did provide some relief. She has experienced nausea and shortness of breath with this. She does have episodes of reflux and she quit recently taking her Ozempic due to the nausea and abdominal pain. Patient does not have any cardiac history. Related Data Previous Rx's Medication Instructions Recorded blood sugar diagnostic (OneTouch #500 ea 01/05/23 Verio test strips) lancets (OneTouch UltraSoft #500 ea 01/05/23 Lancets) pen needle, diabetic 31 gauge x #100 ea 07/17/23/16 (Comfort EZ Pen [place]) flash glucose scanning reader #1 ea 12/21/23 (FreeStyle Trini 2 [place]) flash glucose sensor (FreeStyle #1 ea 12/21/23 Trini 2 Sensor kit) ibuprofen 800 mg tablet 800 mg PO TID #15 tabs 01/22/24 cetirizine 10 mg tablet (Zyrtec) 10 mg PO DAILY #30 tabs 03/02/24 fluticasone propionate 50 2 spray intranasal BID #16 grams 03/02/24 mcg/actuation nasal spray,suspension (Flonase Allergy Relief) amoxicillin 875 mg-potassium 1 tab PO BID 7 days #14 tabs 03/19/24 clavulanate 125 mg tablet semaglutide 0.25 mg or 0.5 mg (2 See Rx Instructions .Route 03/21/24 mg/3 mL) subcutaneous pen injector .COMPLEX #3 mL (Ozempic) fluconazole 150 mg tablet 150 mg PO Q3D 2 doses #2 tabs 03/26/24 Allergies Allergy/AdvReac Type Severity Reaction Status Date / Time No Known Allergies Allergy Verified 03/19/24 14:26 Review of Systems 2 General: Reports: 10 or more systems reviewed and unremarkable except in HPI and below PFSH ED 2 PFSH: Medical History Rubella immune status not known Rubella was immune at 49.3 on 09/19/2022 Hypertension Diabetes Surgical History History of excision of pilonidal cyst (09/29/21) Hx of section 04/13/2019-----> primary low transverse delivery performed by Dr. rivas for nonreassuring heart tracing at [facility] [place]. Double layer closure with no extensions. H/O oral surgery Family History Father Diabetes Hypertension Mother Hypertension Family/Other Breast cancer Maternal Great Aunt-- dx age 70's Denies family history of Colon cancer Ovarian cancer Heart disease Uterine cancer Thyroid disease Stroke Social History Smoking and tobacco/nicotine status: never used tobacco/nicotine Substance/Drug Use: never Physical Exam 2 Const: COMMON NORMALS: no acute distress, average body habitus, patient oriented x3, no limitations, healthy appearing, alert and well nourished HENMT: COMMON NORMALS: normocephalic, atraumatic, hearing grossly normal bilaterally, external ears normal, Normal external nose present and moist oral mucous membranes HEAD & SCALP: normocephalic and atraumatic NOSE: Normal external nose present EXTERNAL EAR: Yes external ears normal Neck/C-Spine: COMMON NORMALS: no JVD Chest: COMMONS NORMALS: normal inspection of the chest; negative for normal palpation of entire chest wall (Tender to palpate reproduces chest pain) Resp: COMMON NORMALS: normal respiratory effort, No retractions, No use of accessory muscles and clear to auscultation bilaterally AUSCULTATION: clear to auscultation bilaterally Cardio: COMMON NORMALS: no JVD, regular rate, regular rhythm, S1 normal heart sound present, S2 normal heart sound present, No gallops present (Cardio), No clicks present (Cardio), No murmurs present (Cardio) and No rub (Cardio) R ATE: regular rate RHYTHM: regular rhythm HEART SOUNDS: S1 normal heart sound present and S2 normal heart sound present GI: COMMON NORMALS: Normal to inspection, nondistended, normoactive bowel sounds present, Soft to palpation, non-tender, No hepatosplenomegaly present and no masses PALPATION: Yes Soft to palpation and Yes No hepatosplenomegaly present Neuro: COMMON NORMALS: patient oriented x3 SENSORIUM/ORIENTATION: Yes alert Course 2 Vital Signs: Vital signs: Vital Signs Temperature 98.2 F 05/08/24 20:58 Pulse Rate 100 05/09/24 00:19 Respiratory Rate 18 05/09/24 00:19 Blood Pressure 160/97 05/09/24 00:19 Pulse Oximetry 99 05/09/24 00:19 Oxygen Delivery Me thod Room Air 05/09/24 00:19 MDM - Chest Pain Medical Decision Making Patient coming was worked up with cardiac fashion, delta troponin was approximately 4, initial troponin was approximately 12 2 hours approximately 16, other labs unremarkable except blood sugar was elevated 440 is probably due to her stopping Ozempic. Patient was given 10 units of IV insulin. Patient be discharged home to follow-up with her PCP. Differential Diagnosis Unlikely acute massive pulmonary embolism, acute respiratory failure, acute myocardial infarction, cardiac arrest or sudden cardiac Medical Records I reviewed the patient's medical records. Lab Data I reviewed the patient's lab results. 05/08/24 21:20 05/08/24 21:20 Radiology Impressions Chest X-Ray 05/08/24 21:17 IMPRESSION: No acute findings. Laboratory Results WBC 8.28 10^3/uL (3.29-11.43) 05/08/24 21:20 RBC 5.14 10^6/uL (3.85-5.65) 05/08/24 21:20 Hgb 14.70 g/dL (11.27-16.99) 05/08/24 21:20 Hct 44.0 % (36-47) 05/08/24 21:20 MCV 85.6 fl (85-98) 05/08/24 21:20 MCH 28.6 pg (27-33) 05/08/24 21:20 MCHC 33.4 g/dL (30-55) 05/08/24 21:20 RDW 12.3 % (12.1-15.1) 05/08/24 21:20 Plt Count 247 10^3/cmm (157-399) 05/08/24 21:20 MPV 10.1 fL (7.4-10.4) 05/08/24 21:20 Neut % (Auto) 47.5 % 05/08/24 21:20 Lymph % (Auto) 41.7 % 05/08/24 21:20 [place] % (Auto) 8.3 % 05/08/24 21:20 Eos % (Auto) 1.8 % 05/08/24 21:20 Baso % (Auto) 0.5 % 05/08/24 21:20 Neut # (Auto) 3.93 10^3/uL (1.8-7.7) 05/08/24 21:20 Lymph # (Auto) 3.5 10^3/uL (0.8-4.8) 05/08/24 21:20 [place] # (Auto) 0.7 10^3/uL (0.2-0.9) 05/08/24 21:20 Eos # (Auto) 0.2 10^3/uL (0.0-0.8) 05/08/24 21:20 Baso # (Auto) 0.0 10^3/uL (0.0-0.1) 05/08/24 21:20 Nucleated RBC % (auto) 0 % 05/08/24 21:20 Nucleated RBCs # 0.0 /100WBC 05/08/24 21:20 Sodium 134 mmol/L (136-145) L 05/08/24 21:20 Potassium 4.3 mmol/L (3.5-5.1) 05/08/24 21:20 Chloride 98 mmol/L (98-107) 05/08/24 21:20 Carbon Dioxide 21 mmol/L (22-29) L 05/08/24 21:20 Anion Gap 19.3 (5-19) H 05/08/24 21:20 BUN 10 mg/dL (6-20) 05/08/24 21:20 Creatinine 0.9 mg/dL (0.5-0.9) 05/08/24 21:20 GFR Calculation 73.0 mL/min (90-130) L 05/08/24 21:20 Glucose 440 mg/dL (65-115) H 05/08/24 21:20 Calculated Osmolality 296 mOsm/kg (285-295) H 05/08/24 21:20 Calcium 9.1 mg/dL (8.5-10.5) 05/08/24 21:20 Total Bilirubin 0.2 mg/dL (0.15-1.2) 05/08/24 21:20 AST 24 U/L (0-32) 05/08/24 21:20 ALT 27 U/L (0-33) 05/08/24 21:20 Alkaline Phosphatase 35 U/L (35-105) 05/08/24 21:20 Troponin T Baseline 12 ng/L (0-10) H 05/08/24 21:20 Troponin T 120 Minute 16.84 ng/L (0-10) H 05/08/24 23:37 Delta Troponin T 4.84 ABS# (0-10) 05/08/24 23:37 Total Protein 7.0 g/dL (6.6-8.7) 05/08/24 21:20 Albumin 4.1 g/dL (3.5-5.2) 05/08/24 21:20 Globulin 2.9 g/dL (1.3-4.6) 05/08/24 21:20 Lipase 55 U/L (13-60) 05/08/24 21:20 All radiology interpretation(s) finalized by discharge Discharge Plan Discharge Patient Disposition: Home Clinical Impression: Chest pain Qualifiers: Chest pain type: unspecified Qualified Code(s): R07.9 - Chest pain, unspecified Diabetes Qualifiers: Diabetes mellitus type: type 2 Diabetes mellitus shelter insulin use: without exterminator use Diabetes mellitus complication status: without complication Q ualified Code(s): E11.9 - Type 2 diabetes mellitus without complications Condition: Stable Prescriptions: No Action (DME) OneTouch Verio test strips Strip See Rx Instructions .Route Qty: 500 0RF Rx Instructions: check bs at least 6 times/day (DME) lancets [OneTouch UltraSoft Lancets] Misc See Rx Instructions .Route Qty: 500 0RF Rx Instructions: to check bs at least 6 times/day fluticasone propionate [Flonase Allergy Relief] 50 mcg/actuation spray,suspension 2 spray intranasal BID Qty: 16 0RF Rx Instructions: administer into each nostril cetirizine [Zyrtec] 10 mg tablet 10 mg PO DAILY Qty: 30 0RF amoxicillin-pot clavulanate 875-125 mg tablet 1 tab PO BID 7 Days Qty: 14 0RF (DME) pen needle, diabetic [Comfort EZ Pen [place]] 31 gauge x 3/16 needle See Rx Instructions .Route Qty: 100 2RF Rx Instructions: As directed (DME) FreeStyle Trini 2 [place] Misc See Rx Instructions .Route Qty: 1 0RF Rx Instructions: As directed (DME) FreeStyle Trini 2 Sensor Kit See Rx Instructions .Route Qty: 1 3RF Rx Instructions: As directed ibuprofen 800 mg tablet 800 mg PO TID Qty: 15 0RF Ozempic 0.25 mg or 0.5 mg (2 mg/3 mL) pen injector See Rx Instructions .ROUTE .COMPLEX Qty: 3 0RF Dose Instruction: INJECT 0.25 MG SUBCUTANEOUSLY ONCE A WEEK FOR 1 WEEK, THEN ADVANCE TO 0.5MG ONCE WEEKLY THEREAFTER FOR 90 DAYS Rx Instructions: INJECT 0.25 MG SUBCUTANEOUSLY ONCE A WEEK FOR 1 WEEK, THEN ADVANCE TO 0.5MG ONCE WEEKLY THEREAFTER FOR 90 DAYS fluconazole 150 mg tablet 150 mg PO Q3D Qty: 2 0RF Discharge Orders: Discharge ED (Routine); Ordered 05/09/24 Ordered By: Josué Ambrosio Referrals: Vicky Srivastava FNP [Primary Care Provider] - 1 week Patient Instructions: Chest Pain (ED) Activity Restrictions/Additional Instructions: Your evaluation ER did not show any acute cause of your symptomatology. Please keep a blood pressure log and take it with you to your next family practice appointment preferably within next 7 to 10 days for further evaluation and treatment. Thank you for choosing [facility] for your healthcare needs today. Please realize that you were seen in the emergency department and that we are providing you with an emergency medical screening exam and this may not be a complete and all exclusive of all testing and/or medical workup we may need to determine your element or severity of your illness. It is very important that you follow-up as instructed with your primary care provider or specialist for the additional evaluation and to discuss your medical treatment plan. You may return to the emergency department should you have concerns or if your condition changes or worsens in any way. Coding Level of Care Code ED Support Services Tech for Susan Capellan
--- NOTE | 2024-05-08 23:17 | ECG_ITS ---
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 Measurements Intervals [place] Rate: 108 P: 71 MA: 132 QRS: 64 QRSD: 92 T: 41 QT: 339 QTc: 455 Interpretive Statements SINUS TACHYCARDIA POSSIBLE LEFT ATRIAL ENLARGEMENT [-0.1mV P-WAVE IN V1/V2] ABNORMAL RHYTHM ECG Compared to ECG 05/08/2024 20:56:14 Sinus rhythm no longer present Electronically Signed On 05-10-2024 21:12:30 CDT by Kailash Esqueda M.D. [id number]
[2024-05-08] MEDS: morphine 4 mg/mL SDV 1 mL IVP (23:41)
[2024-05-08] MEDS: ondansetron 2 mg/ML SDV 2 mL 4 MG IVP (23:42)
[2024-05-08] MEDS: insulin regular-human 100 units/1 mL 10 UNIT IVP (23:52)
[2024-05-09 00:19] VITALS: BP 160/97; PULSE 100; RESP 18; O2SAT 99
[2024-05-09 00:27] LABS: Troponin 5 2HR 16.84 ng/L (0-10); Troponin 5 2HR Delta 4.84 ABS# (0-10)
[2024-05-09 00:30] VITALS: BP 160/97; PULSE 103; RESP 15; O2SAT 98
[2024-05-09 01:40] VITALS: BP 178/126; PULSE 110; O2SAT 98
--- NOTE | 2024-05-09 01:40 | PC.NURSE ---
MD Ambrosio approved of discharge BP of 178/126.
== END 2024-05-09 01:11 | disposition home or self-care (01) ==
PROVIDERS: Emergency Provider Emergency Medicine; PCP Registered Nurse
DX: R07.9 Chest pain, unspecified (principal); E11.9 Type 2 diabetes mellitus without complications; Z79.85 Long-term (current) use of injectable non-insulin antidiabetic drugs; I10 Essential (primary) hypertension
CPT/HCPCS: 71045; 80053; 83690; 84484; 85025; 93005; 96374; 96375; 99285; J0360; J1815; J2270; J2405

== ENCOUNTER 2024-05-10 12:20 | Inpatient (IN) | payer OTHER, MEDICAID, SELFPAY ==
[2024-05-10] VITALS (20 sets, daily range): BP systolic 129–201; BP diastolic 72–119; PULSE 88–127; RESP 3–23; TEMP 36.3–36.8; O2SAT 96–99
--- NOTE | 2024-05-10 12:23 | ECG_ITS ---
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 Measurements Intervals [place] Rate: 78 P: 24 OK: 138 QRS: 32 QRSD: 97 T: 8 QT: 363 QTc: 415 Interpretive Statements SINUS RHYTHM WITH SINUS ARRHYTHMIA POSSIBLE ANTERIOR MYOCARDIAL INFARCTION , OF INDETERMINATE AGE [30 ms Q WAVE IN V3/V4, OR R < 0.2 mV IN V4] Compared to ECG 05/08/2024 23:26:52 Myocardial infarct finding now present Sinus tachycardia no longer present Electronically Signed On 05-10-2024 21:03:18 CDT by Kailash Esqueda M.D. [id number]
--- NOTE | 2024-05-10 13:49 | XRR_ITS ---
PROCEDURE INFORMATION: Exam: XR Chest Exam date and time: 05/10/2024 2:05 PM Age: 33 years old Clinical indication: Cough and dyspnea; Additional info: Dyspnea/cough TECHNIQUE: Imaging protocol: Radiologic exam of the chest. Views: 1 view. COMPARISON: CR (CHEST, ) 05/08/2024 9:42 PM FINDINGS: Lungs: Unremarkable. No consolidation. Pleural spaces: Unremarkable. No pleural effusion. No pneumothorax. Heart/Mediastinum: Unremarkable. No cardiomegaly. Bones/joints: Unremarkable. XR/XR chest 1V portable [id number] IMPRESSION: No acute findings.
--- NOTE | 2024-05-10 13:49 | ED_ITS ---
Documented by User: Brett Bloom DO 05/12/24 17:39 HPI - Chest Pain 2 General: Chief Complaint: Chest Pain Stated Complaint: chest pain Time Seen by Provider: 05/10/24 13:25 History of Present Illness: 33-year-old female who was seen a few da ys ago in the emergency room had a negative cardiac workup complains of continued chest discomfort. States that her left chest she has nausea blood pressure is markedly elevated states it is worse with exertion. Since that she left the last time. She describes the pain is worsened by exertion radiating to her neck back and arms Associated symptoms: Reports dyspnea; Deny abdominal pain or fever(s) Related Data Home Medications Medication Instructions Recorded Confirmed etonogestrel 68 mg subdermal 1 implant subdermal .EVERY 3 YEARS 05/11/24 05/12/24 implant (Nexplanon) Previous Rx's Medication Instructions Recorded blood sugar diagnostic (OneTouch #500 ea 01/05/23 Verio test strips) lancets (OneTouch UltraSoft #500 ea 01/05/23 Lancets) pen needle, diabetic 31 gauge x #100 ea 07/17/23 3/16 (Comfort EZ Pen [place]) flash glucose scanning reader #1 ea 12/21/23 (FreeStyle [place] 2 [place]) flash glucose sensor (FreeStyle #1 ea 12/21/23 Trini 2 Sensor kit) Allergies Allergy/AdvReac Type Severity Reaction Status Date / Time No Known Allergies Allergy Verified 03/19/24 14:26 Review of Systems 2 Const: Denies: fever(s) or chills Card: Reports: chest pain Resp: Reports: dyspnea GI: Denies: abdominal pain : Denies: dysuria, urinary frequency or urinary urgency Musc: Denies: neck pain or back pain Skin/Breast: Denies: rash PFSH ED 2 PFSH: Medical History Rubella immune status not known Rubella was immune at 49.3 on 09/19/2022 Hypertension Diabetes Surgical History History of excision of pilonidal cyst (09/29/21) Hx of section 04/13/2019-----> primary low transverse delivery performed by Dr. rivas for nonreassuring heart tracing at [facility]. Double layer closure with no extensions. H/O oral surgery Family History Father Diabetes Hypertension Mother Hypertension Family/Other Breast cancer Maternal Great Aunt-- dx age 70's Denies family history of Colon cancer Ovarian cancer Heart disease Uterine cancer Thyroid disease Stroke Social History Smoking and tobacco/nicotine status: never used tobacco/nicotine Substance/Drug Use: never Physical Exam 2 Const: COMMON NORMALS: no acute distress GENERAL APPEARANCE: cooperative and comfortable ORIENTATION/CONSCIOUSNESS: Yes awake, Yes oriented to person, Yes oriented to place and Yes oriented to time HENMT: COMMON NORMALS: normocephalic, atraumatic and hearing grossly normal bilaterally HEAD & SCALP: normocephalic and atraumatic Resp: COMMON NORMALS: normal respiratory effort, No retractions, No use of accessory muscles and clear to auscultation bilaterally AUSCULTATION: clear to auscultation bilaterally Cardio: COMMON NORMALS: regular rate, regular rhythm and No murmurs present (Cardio) RATE: regular rate RHYTHM: regular rhythm GI: COMMON NORMALS: Soft to palpation and No hepatosplenomegaly present A USCULTATION: Yes normoactive bowel sounds PALPATION: Yes Soft to palpation, No Tenderness to palpation present (GI), No Guarding due to palpation present (GI) and Yes No hepatosplenomegaly present Extremity: COMMON NORMALS: normal to inspection, capillary refill normal, no clubbing, cyanosis or edema, no calf tenderness and no pedal edema Neuro: SENSORIUM/ORIENTATION: Yes oriented to person, Yes oriented to place and Yes oriented to time Skin: COMMON NORMALS: no rashes or lesions noted GENERAL SKIN EXAM: no rashes or lesions noted Course 2 Vital Signs: Vital signs: Vital Signs Temperature 98.8 F 05/12/24 08:00 Pulse Rate 82 05/12/24 16:00 Respiratory Rate 14 05/12/24 16:00 Blood Pressure 145/92 05/12/24 16:00 Pulse Oximetry 97 05/12/24 16:00 Oxygen Delivery Me thod Room Air 05/12/24 16:00 MDM - Chest Pain Medical Decision Making Care signed out to Dr. Ignacio at change of shift. See final notes for diagnosis and disposition. Lab Data 05/12/24 05:41 05/12/24 05:41 Radiology Impressions Chest X-Ray 05/10/24 13:49 IMPRESSION: No acute findings. Chest CTA 05/10/24 17:27 IMPRESSION: 1. No pulmonary emboli. 2. No focal consolidations. Laboratory Results WBC 9.89 10^3/uL (3.29-11.43) 05/11/24 03:24 RBC 5.19 10^6/uL (3.85-5.65) 05/11/24 03:24 Hgb 15.00 g/dL (11.27-16.99) 05/11/24 03:24 Hct 45.5 % (36-47) 05/11/24 03:24 MCV 87.7 fl (85-98) 05/11/24 03:24 MCH 28.9 pg (27-33) 05/11/24 03:24 MCHC 33.0 g/dL (30-55) 05/11/24 03:24 RDW 12.6 % (12.1-15.1) 05/11/24 03:24 Plt Count 261 10^3/cmm (157-399) 05/11/24 03:24 MPV 9.8 fL (7.4-10.4) 05/11/24 03:24 Neut % (Auto) 56.0 % 05/11/24 03:24 Lymph % (Auto) 35.8 % 05/11/24 03:24 [place] % (Auto) 6.4 % 05/11/24 03:24 Eos % (Auto) 1.0 % 05/11/24 03:24 Baso % (Auto) 0.4 % 05/11/24 03:24 Neut # (Auto) 5.54 10^3/uL (1.8-7.7) 05/11/24 03:24 Lymph # (Auto) 3.5 10^3/uL (0.8-4.8) 05/11/24 03:24 [place] # (Auto) 0.6 10^3/uL (0.2-0.9) 05/11/24 03:24 Eos # (Auto) 0.1 10^3/uL (0.0-0.8) 05/11/24 03:24 Baso # (Auto) 0.0 10^3/uL (0.0-0.1) 05/11/24 03:24 Nucleated RBC % (auto) 0 % 05/11/24 03:24 Nucleated RBCs # 0.0 /100WBC 05/11/24 03:24 D-Dimer 0.31 ug/mLFEU (0-0.59) 05/10/24 15:24 Sodium 132 mmol/L (136-145) L 05/11/24 03:24 Potassium 4.5 mmol/L (3.5-5.1) 05/11/24 03:24 Chloride 99 mmol/L (98-107) 05/11/24 03:24 Carbon Dioxide 21 mmol/L (22-29) L 05/11/24 03:24 Anion Gap 16.5 (5-19) 05/11/24 03:24 BUN 12 mg/dL (6-20) 05/11/24 03:24 Creatinine 0.6 mg/dL (0.5-0.9) 05/11/24 03:24 GFR Calculation 116.6 mL/min (90-130) 05/11/24 03:24 Glucose 299 mg/dL (65-115) H 05/11/24 03:24 POC Glucose 227 mg/dL (70-110) H 05/10/24 21:07 Estimat Average Glucose 255 05/11/24 03:24 Hemoglobin A1c 10.5 % (4.0-6.0) H 05/11/24 03:24 Calculated Osmolality 285 mOsm/kg (285-295) 05/11/24 03:24 Calcium 9.0 mg/dL (8.5-10.5) 05/11/24 03:24 Phosphorus 4.4 mg/dL (2.5-4.5) 05/11/24 03:24 Magnesium 2.1 mg/dL (1.7-2.3) 05/11/24 03:24 Iron 46 ug/dL (37-145) 05/10/24 18:20 TIBC 348 mcg/dl 05/10/24 18:20 % Saturation 13.2 % (20-50) L 05/10/24 18:20 Unsat Iron Binding 302 ug/dL (112-347) 05/10/24 18:20 Total Bilirubin 0.3 mg/dL (0.15-1.2) 05/11/24 03:24 AST 5 U/L (0-32) 05/11/24 03:24 ALT 27 U/L (0-33) 05/11/24 03:24 Alkaline Phosphatase 29 U/L (35-105) L 05/11/24 03:24 Troponin T 5th Gen ng/L 90 ng/L (0-10) H 05/11/24 03:24 Troponin T Baseline 36 ng/L (0-10) H 05/10/24 16:08 Troponin T 120 Minute 37.61 ng/L (0-10) H 05/10/24 18:20 Delta Troponin T 1.61 ABS# (0-10) 05/10/24 18:20 Troponin T Hi Sens 6Hr 52.77 ng/L (0-10) H 05/10/24 22:24 Troponin T Hi Sens 6Hr Delta 16.77 ng/L (0-12) H* 05/10/24 22:24 C-Reactive Protein 4.1 mg/L (0.0-4.9) 05/10/24 16:08 Total Protein 7.2 g/dL (6.6-8.7) 05/11/24 03:24 Albumin 3.9 g/dL (3.5-5.2) 05/11/24 03:24 Globulin 3.3 g/dL (1.3-4.6) 05/11/24 03:24 Triglycerides 1180 mg/dL (0-150) H 05/11/24 03:24 Cholesterol 268 mg/dL (0-200) H 05/11/24 03:24 LDL Cholesterol Direct 140 mg/dL (0-100) H 05/11/24 03:24 LDL Cholesterol, Calc Not Reportable 05/11/24 03:24 HDL Cholesterol 31 mg/dL (60-100) L 05/11/24 03:24 LDL/HDL Ratio Not Reportable 05/11/24 03:24 Cholesterol/HDL Ratio 8.65 mg/dL (0.0-4.40) H 05/11/24 03:24 Lipase 53 U/L (13-60) 05/11/24 03:24 Vitamin B12 358 pg/mL (232-1245) 05/10/24 18:20 Folate 16.4 ng/mL (4.8-37.3) 05/11/24 03:24 Procalcitonin 0.05 ng/mL (0-0.5) 05/10/24 16:08 TSH 1.55 uIU/mL (0.27-4.20) 05/10/24 18:20 HCG, Qual Negative (Negative) 05/11/24 03:24 Urine Color Yellow (Yellow) 05/10/24 22:59 Urine Appearance Clear (CLEAR) 05/10/24 22:59 Urine pH 6.5 (5-7) 05/10/24 22:59 Ur Specific [place] 1.040 (1.005-1.030) H 05/10/24 22:59 Urine Protein Negative (Negative) 05/10/24 22:59 Urine Glucose (UA) 3+ (Normal) H 05/10/24 22:59 Urine Ketones 2+ (Negative) H 05/10/24 22:59 Urine Blood 3+ (Negative) A 05/10/24 22:59 Urine Nitrate Negative (Negative) 05/10/24 22:59 Urine Bilirubin Negative (Negative) 05/10/24 22:59 Urine Urobilinogen 1.0 mg/dL (Negative) 05/10/24 22:59 Ur Leukocyte Esterase Negative (Negative) 05/10/24 22:59 Urine RBC 0-2 /hpf (0-2) 05/10/24 22:59 Urine WBC 0-5 /hpf (0-5) 05/10/24 22:59 Ur Squamous Epith Cells 0-5 /hpf (0-5) 05/10/24 22:59 Amorphous Sediment Not Reportable 05/10/24 22:59 Urine Bacteria None seen /hpf (NONE) 05/10/24 22:59 Hyaline Casts 0-4 /lpf H 05/10/24 22:59 Urine Opiates Screen Positive ng/mL (Negative) H 05/10/24 22:59 Ur Barbiturates Screen Negative ng/mL (Negative) 05/10/24 22:59 Ur Phencyclidine Scrn Negative ng/mL (Negative) 05/10/24 22:59 Ur Amphetamines Screen Negative ng/mL (Negative) 05/10/24 22:59 U Benzodiazepines Scrn Negative ng/mL (Negative) 05/10/24 22:59 Urine Cocaine Screen Negative ng/mL (Negative) 05/10/24 22:59 U Marijuana (THC) Screen Negative ng/mL (Negative) 05/10/24 22:59 Adenovirus (PCR) Not detected (NOT DETECT) 05/10/24 21:15 C. pneumoniae DNA (PCR) Not detected (NOT DETECT) 05/10/24 21:15 Coronavirus 229E (PCR) Not detected (NOT DETECT) 05/10/24 21:15 Human Metapneumovir PCR Not detected (NOT DETECT) 05/10/24 21:15 Influenza A (H1) PCR Not detected (NOT DETECT) 05/10/24 21:15 Influ A (H1/09) PCR Not detected (NOT DETECT) 05/10/24 21:15 Influenza A (H3) PCR Not detected (NOT DETECT) 05/10/24 21:15 Influenza Type A (PCR) Not detected (NOT DETECT) 05/10/24 21:15 Influenza Type B (PCR) Not detected (NOT DETECT) 05/10/24 21:15 M. pneumoniae (PCR) Not detected (NOT DETECT) 05/10/24 21:15 Parainfluenza 1 (PCR) Not detected (NOT DETECT) 05/10/24 21:15 Parainfluenza 2 (PCR) Not detected (NOT DETECT) 05/10/24 21:15 Parainfluenza 3 (PCR) Not detected (NOT DETECT) 05/10/24 21:15 Parainfluenza 4 (PCR) Not detected (NOT DETECT) 05/10/24 21:15 RSV Type A (PCR) Not detected (NOT DETECT) 05/10/24 21:15 RSV Type B (PCR) Not detected (NOT DETECT) 05/10/24 21:15 Entero/Rhino (PCR) Detected (NOT DETECT) A 05/10/24 21:15 SARS-CoV-2 (PCR) Not detected (NOT DETECT) 05/10/24 21:15 Discharge Plan Discharge Patient Disposition: Admitted As Inpatient Admit Provider: Dominic Vickers Clinical Impression: Chest pain Qualifiers: Chest pain type: unspecified Qualified Code(s): R07.9 - Chest pain, unspecified Condition: Stable Coding Level of Care Code ED Coil Machine Operator for [facility] Fwd Documented by User: Ameya Ignacio DO 05/10/24 20:49 HPI - Chest Pain 2 General: Chief Complaint: Chest Pain Stated Complaint: chest pain Time Seen by Provider: 05/10/24 13:25 Related Data Home Medications Medication Instructions Recorded Confirmed etonogestrel 68 mg subdermal 1 implant subdermal .EVERY 3 YEARS 05/11/24 05/12/24 implant (Nexplanon) Previous Rx's Medication Instructions Recorded blood sugar diagnostic (OneTouch #500 ea 01/05/23 Verio test strips) lancets (OneTouch UltraSoft #500 ea 01/05/23 Lancets) pen needle, diabetic 31 gauge x #100 ea 07/17/2310/19 (Comfort EZ Pen [place]) flash glucose scanning reader #1 ea 12/21/23 (FreeStyle Trini 2 [place]) flash glucose sensor (FreeStyle #1 ea 12/21/23 Trini 2 Sensor kit) Allergies Allergy/AdvReac Type Severity Reaction Status Date / Time No Known Allergies Allergy Verified 03/19/24 14:26 PFSH ED 2 PFSH: Medical History Rubella immune status not known Rubella was immune at 49.3 on 09/19/2022 Hypertension Diabetes Surgical History History of excision of pilonidal cyst (09/29/21) Hx of section 04/13/2019-----> primary low transverse delivery performed by Dr. rivas for nonreassuring heart tracing at [facility]. Double layer closure with no extensions. H/O oral surgery Family History Father Diabetes Hypertension Mother Hypertension Family/Other Breast cancer Maternal Great Aunt-- dx age 70's Denies family history of Colon cancer Ovarian cancer Heart disease Uterine cancer Thyroid disease Stroke Social History Smoking and tobacco/nicotine status: never used tobacco/nicotine Substance/Drug Use: never Course 2 Vital Signs: Vital signs: Vital Signs Temperature 98.8 F 05/12/24 08:00 Pulse Rate 82 05/12/24 16:00 Respiratory Rate 14 05/12/24 16:00 Blood Pressure 145/92 05/12/24 16:00 Pulse Oximetry 97 05/12/24 16:00 Oxygen Delivery Me thod Room Air 05/12/24 16:00 MDM - Chest Pain Medical Decision Making Care signed out to Dr. Ignacio at change of shift. See final notes for diagnosis and disposition. 33-year-old female with chest discomfort. EKG does not show any acute ST wave changes. She is afebrile. Minimally tachycardic. She is hypertensive. She does have a history of diabetes. First troponin is elevated at 36. 2-hour delta is 1.6. CTA of the chest shows no pulmonary emboli and no consolidation. No reason for chest discomfort or troponin elevation. CRP is not elevated. She could have a mild myocarditis. This is her second visit to the ER. Spoke with hospitalist. Will observe the patient, echo in the morning, and any further testing necessary. Lab Data 05/12/24 05:41 05/12/24 05:41 Radiology Impressions Chest X-Ray 05/10/24 13:49 IMPRESSION: No acute findings. Chest CTA 05/10/24 17:27 IMPRESSION: 1. No pulmonary emboli. 2. No focal consolidations. Laboratory Results WBC 9.89 10^3/uL (3.29-11.43) 05/11/24 03:24 RBC 5.19 10^6/uL (3.85-5.65) 05/11/24 03:24 Hgb 15.00 g/dL (11.27-16.99) 05/11/24 03:24 Hct 45.5 % (36-47) 05/11/24 03:24 MCV 87.7 fl (85-98) 05/11/24 03:24 MCH 28.9 pg (27-33) 05/11/24 03:24 MCHC 33.0 g/dL (30-55) 05/11/24 03:24 RDW 12.6 % (12.1-15.1) 05/11/24 03:24 Plt Count 261 10^3/cmm (157-399) 05/11/24 03:24 MPV 9.8 fL (7.4-10.4) 05/11/24 03:24 Neut % (Auto) 56.0 % 05/11/24 03:24 Lymph % (Auto) 35.8 % 05/11/24 03:24 [place] % (Auto) 6.4 % 05/11/24 03:24 Eos % (Auto) 1.0 % 05/11/24 03:24 Baso % (Auto) 0.4 % 05/11/24 03:24 Neut # (Auto) 5.54 10^3/uL (1.8-7.7) 05/11/24 03:24 Lymph # (Auto) 3.5 10^3/uL (0.8-4.8) 05/11/24 03:24 [place] # (Auto) 0.6 10^3/uL (0.2-0.9) 05/11/24 03:24 Eos # (Auto) 0.1 10^3/uL (0.0-0.8) 05/11/24 03:24 Baso # (Auto) 0.0 10^3/uL (0.0-0.1) 05/11/24 03:24 Nucleated RBC % (auto) 0 % 05/11/24 03:24 Nucleated RBCs # 0.0 /100WBC 05/11/24 03:24 D-Dimer 0.31 ug/mLFEU (0-0.59) 05/10/24 15:24 Sodium 132 mmol/L (136-145) L 05/11/24 03:24 Potassium 4.5 mmol/L (3.5-5.1) 05/11/24 03:24 Chloride 99 mmol/L (98-107) 05/11/24 03:24 Carbon Dioxide 21 mmol/L (22-29) L 05/11/24 03:24 Anion Gap 16.5 (5-19) 05/11/24 03:24 BUN 12 mg/dL (6-20) 05/11/24 03:24 Creatinine 0.6 mg/dL (0.5-0.9) 05/11/24 03:24 GFR Calculation 116.6 mL/min (90-130) 05/11/24 03:24 Glucose 299 mg/dL (65-115) H 05/11/24 03:24 POC Glucose 227 mg/dL (70-110) H 05/10/24 21:07 Estimat Average Glucose 255 05/11/24 03:24 Hemoglobin A1c 10.5 % (4.0-6.0) H 05/11/24 03:24 Calculated Osmolality 285 mOsm/kg (285-295) 05/11/24 03:24 Calcium 9.0 mg/dL (8.5-10.5) 05/11/24 03:24 Phosphorus 4.4 mg/dL (2.5-4.5) 05/11/24 03:24 Magnesium 2.1 mg/dL (1.7-2.3) 05/11/24 03:24 Iron 46 ug/dL (37-145) 05/10/24 18:20 TIBC 348 mcg/dl 05/10/24 18:20 % Saturation 13.2 % (20-50) L 05/10/24 18:20 Unsat Iron Binding 302 ug/dL (112-347) 05/10/24 18:20 Total Bilirubin 0.3 mg/dL (0.15-1.2) 05/11/24 03:24 AST 5 U/L (0-32) 05/11/24 03:24 ALT 27 U/L (0-33) 05/11/24 03:24 Alkaline Phosphatase 29 U/L (35-105) L 05/11/24 03:24 Troponin T 5th Gen ng/L 90 ng/L (0-10) H 05/11/24 03:24 Troponin T Baseline 36 ng/L (0-10) H 05/10/24 16:08 Troponin T 120 Minute 37.61 ng/L (0-10) H 05/10/24 18:20 Delta Troponin T 1.61 ABS# (0-10) 05/10/24 18:20 Troponin T Hi Sens 6Hr 52.77 ng/L (0-10) H 05/10/24 22:24 Troponin T Hi Sens 6Hr Delta 16.77 ng/L (0-12) H* 05/10/24 22:24 C-Reactive Protein 4.1 mg/L (0.0-4.9) 05/10/24 16:08 Total Protein 7.2 g/dL (6.6-8.7) 05/11/24 03:24 Albumin 3.9 g/dL (3.5-5.2) 05/11/24 03:24 Globulin 3.3 g/dL (1.3-4.6) 05/11/24 03:24 Triglycerides 1180 mg/dL (0-150) H 05/11/24 03:24 Cholesterol 268 mg/dL (0-200) H 05/11/24 03:24 LDL Cholesterol Direct 140 mg/dL (0-100) H 05/11/24 03:24 LDL Cholesterol, Calc Not Reportable 05/11/24 03:24 HDL Cholesterol 31 mg/dL (60-100) L 05/11/24 03:24 LDL/HDL Ratio Not Reportable 05/11/24 03:24 Cholesterol/HDL Ratio 8.65 mg/dL (0.0-4.40) H 05/11/24 03:24 Lipase 53 U/L (13-60) 05/11/24 03:24 Vitamin B12 358 pg/mL (232-1245) 05/10/24 18:20 Folate 16.4 ng/mL (4.8-37.3) 05/11/24 03:24 Procalcitonin 0.05 ng/mL (0-0.5) 05/10/24 16:08 TSH 1.55 uIU/mL (0.27-4.20) 05/10/24 18:20 HCG, Qual Negative (Negative) 05/11/24 03:24 Urine Color Yellow (Yellow) 05/10/24 22:59 Urine Appearance Clear (CLEAR) 05/10/24 22:59 Urine pH 6.5 (5-7) 05/10/24 22:59 Ur Specific [place] 1.040 (1.005-1.030) H 05/10/24 22:59 Urine Protein Negative (Negative) 05/10/24 22:59 Urine Glucose (UA) 3+ (Normal) H 05/10/24 22:59 Urine Ketones 2+ (Negative) H 05/10/24 22:59 Urine Blood 3+ (Negative) A 05/10/24 22:59 Urine Nitrate Negative (Negative) 05/10/24 22:59 Urine Bilirubin Negative (Negative) 05/10/24 22:59 Urine Urobilinogen 1.0 mg/dL (Negative) 05/10/24 22:59 Ur Leukocyte Esterase Negative (Negative) 05/10/24 22:59 Urine RBC 0-2 /hpf (0-2) 05/10/24 22:59 Urine WBC 0-5 /hpf (0-5) 05/10/24 22:59 Ur Squamous Epith Cells 0-5 /hpf (0-5) 05/10/24 22:59 Amorphous Sediment Not Reportable 05/10/24 22:59 Urine Bacteria None seen /hpf (NONE) 05/10/24 22:59 Hyaline Casts 0-4 /lpf H 05/10/24 22:59 Urine Opiates Screen Positive ng/mL (Negative) H 05/10/24 22:59 Ur Barbiturates Screen Negative ng/mL (Negative) 05/10/24 22:59 Ur Phencyclidine Scrn Negative ng/mL (Negative) 05/10/24 22:59 Ur Amphetamines Screen Negative ng/mL (Negative) 05/10/24 22:59 U Benzodiazepines Scrn Negative ng/mL (Negative) 05/10/24 22:59 Urine Cocaine Screen Negative ng/mL (Negative) 05/10/24 22:59 U Marijuana (THC) Screen Negative ng/mL (Negative) 05/10/24 22:59 Adenovirus (PCR) Not detected (NOT DETECT) 05/10/24 21:15 C. pneumoniae DNA (PCR) Not detected (NOT DETECT) 05/10/24 21:15 Coronavirus 229E (PCR) Not detected (NOT DETECT) 05/10/24 21:15 Human Metapneumovir PCR Not detected (NOT DETECT) 05/10/24 21:15 Influenza A (H1) PCR Not detected (NOT DETECT) 05/10/24 21:15 Influ A (H1/09) PCR Not detected (NOT DETECT) 05/10/24 21:15 Influenza A (H3) PCR Not detected (NOT DETECT) 05/10/24 21:15 Influenza Type A (PCR) Not detected (NOT DETECT) 05/10/24 21:15 Influenza Type B (PCR) Not detected (NOT DETECT) 05/10/24 21:15 M. pneumoniae (PCR) Not detected (NOT DETECT) 05/10/24 21:15 Parainfluenza 1 (PCR) Not detected (NOT DETECT) 05/10/24 21:15 Parainfluenza 2 (PCR) Not detected (NOT DETECT) 05/10/24 21:15 Parainfluenza 3 (PCR) Not detected (NOT DETECT) 05/10/24 21:15 Parainfluenza 4 (PCR) Not detected (NOT DETECT) 05/10/24 21:15 RSV Type A (PCR) Not detected (NOT DETECT) 05/10/24 21:15 RSV Type B (PCR) Not detected (NOT DETECT) 05/10/24 21:15 Entero/Rhino (PCR) Detected (NOT DETECT) A 05/10/24 21:15 SARS-CoV-2 (PCR) Not detected (NOT DETECT) 05/10/24 21:15 All radiology interpretation(s) finalized by discharge Discharge Plan Discharge Patient Disposition: Admitted As Inpatient Admit Provider: Dominic Vickers Clinical Impression: Chest pain Qualifiers: Chest pain type: unspecified Qualified Code(s): R07.9 - Chest pain, unspecified Condition: Stable Coding Level of Care Code ED Coil Machine Operator for Susan Capellan
[2024-05-10] MEDS: hyDRALAzine 20 mg/mL INJ 1 mL 5 MG IVP (13:51)
[2024-05-10] MEDS: labetalol 5 mg/mL SDV 20mL 10 MG IVP (13:53)
[2024-05-10] MEDS: amlodipine 10 mg Tablet PO (13:53)
[2024-05-10 15:24] LABS: Glucose Point of Care 225 mg/dL (70-110)
[2024-05-10 15:47] LABS: D Dimer 0.31 ug/mLFEU (0-0.59)
[2024-05-10] MEDS: hyDRALAzine 20 mg/mL INJ 1 mL 10 MG IVP (16:09)
[2024-05-10 16:13] LABS: Basophils # 0.1 10^3/uL (0.0-0.1); Basophils % 0.5 %; Eosinophils # 0.1 10^3/uL (0.0-0.8); Eosinophils % 0.9 %; Hematocrit 44.4 % (36-47); Lymphocytes # 3.4 10^3/uL (0.8-4.8); Lymphocytes % 31.4 %; Mean Corpuscular HGB Conc 33.1 g/dL (30-55); Mean Corpuscular Hemoglobin 28.4 pg (27-33); Mean Corpuscular Volume 85.7 fl (85-98); Mean Platelet Volume 9.7 fL (7.4-10.4); Monocytes # 0.6 10^3/uL (0.2-0.9); Monocytes % 5.7 %; Neutrophils # 6.59 10^3/uL (1.8-7.7); Neutrophils % 61.2 %; Nucleated Red Blood Cells % 0 %; Platelet Count 256 10^3/cmm (157-399); Red Blood Count 5.18 10^6/uL (3.85-5.65); Red Cell Distribution Width 12.3 % (12.1-15.1); White Blood Count 10.76 10^3/uL (3.29-11.43)
[2024-05-10 16:33] LABS: Alanine Aminotransferase 25 U/L (0-33); Alkaline Phosphatase 29 U/L (35-105); Anion Gap 16.9 (5-19); Aspartate Amino Transferase 27 U/L (0-32); Blood Urea Nitrogen 14 mg/dL (6-20); Calcium 9.7 mg/dL (8.5-10.5); Carbon Dioxide 23 mmol/L (22-29); Chloride 97 mmol/L (98-107); Globulin 3.2 g/dL (1.3-4.6); Glomerular Filtration Rate 116.6 mL/min (90-130); Glucose 228 mg/dL (65-115); Osmolality Calculated 284 mOsm/kg (285-295); Potassium 3.9 mmol/L (3.5-5.1); Sodium 133 mmol/L (136-145); Total Bilirubin 0.4 mg/dL (0.15-1.2); Total Protein 7.2 g/dL (6.6-8.7)
--- NOTE | 2024-05-10 16:42 | ECG_ITS ---
[facility] Test Date: 2024-05-10 Pat Name: Jeannie Zamora Department: Room: Gender: Female Credit Administration Manager: : 1990 Requested By: Brett Candelaria Order Number: [id number] Shakeel MD: Kailash Esqueda M.D. Measurements Intervals [place] Rate: 103 P: 58 GA: 120 QRS: 30 QRSD: 97 T: 7 QT: 349 QTc: 457 Interpretive Statements SINUS TACHYCARDIA POSSIBLE LEFT ATRIAL ENLARGEMENT [-0.1mV P-WAVE IN V1/V2] POSSIBLE ANTERIOR MYOCARDIAL INFARCTION , OF INDETERMINATE AGE [30 ms Q WAVE IN V3/V4, OR R < 0.2 mV IN V4] Compared to ECG 05/10/2024 12:24:21 Sinus rhythm no longer present Sinus arrhythmia no longer present Myocardial infarct finding still present Electronically Signed On 05-10-2024 21:06:54 CDT by Kailash Esqueda M.D. [id number]
[2024-05-10 16:45] LABS: Troponin(5th) Baseline 36 ng/L (0-10)
--- NOTE | 2024-05-10 17:16 | ECG_ITS ---
[facility] Test Date: 2024-05-10 Pat Name: Jeannie Zamora Department: Room: Gender: Female Manager Of Corporate: : 1990 Requested By: Brett Candelaria Order Number: [id number] Shakeel MD: Kailash Esqueda M.D. Measurements Intervals [place] Rate: 98 P: 57 CA: 124 QRS: 33 QRSD: 93 T: 7 QT: 351 QTc: 449 Interpretive Statements SINUS RHYTHM POSSIBLE LEFT ATRIAL ENLARGEMENT [-0.1mV P-WAVE IN V1/V2] POSSIBLE ANTERIOR MYOCARDIAL INFARCTION , OF INDETERMINATE AGE [30 ms Q WAVE IN V3/V4, OR R < 0.2 mV IN V4] Compared to ECG 05/10/2024 16:42:39 Sinus tachycardia no longer present Myocardial infarct finding still present Electronically Signed On 05-11-2024 22:52:42 CDT by Kailash Esqueda M.D. [id number]
--- NOTE | 2024-05-10 17:27 | CTR_ITS ---
PROCEDURE INFORMATION: Exam: CTA Chest With Contrast Exam date and time: 05/10/2024 5:34 PM Age: 33 years old Clinical indication: Shortness of breath; Additional info: Chest pain shortness of breath TECHNIQUE: Imaging protocol: Computed tomographic angiography of the chest with contrast. Exam focused on the arteries. 3D rendering (Not supervised by radiologist): MIP and/or 3D reconstructed images were created by the technologist. Radiation optimization: All CT scans at this facility use at least one of these dose optimization techniques: automated exposure control; mA and/or kV adjustment per patient size (includes targeted exams where dose is matched to clinical indication); or iterative reconstruction. Contrast material: OMNIPAQUE 350; Contrast volume: 71 ml; Contrast route: INTRAVENOUS (IV); COMPARISON: CR (CHEST, ) 05/10/2024 2:05 PM RADIATION DOSE METRICS: Total DLP (mGy-cm): 471.76 FINDINGS: Pulmonary arteries: No pulmonary emboli. Aorta: Unremarkable. No aortic aneurysm. No aortic dissection. Lungs: No focal consolidations. Pleural spaces: Unremarkable. No pneumothorax. No pleural effusion. Heart: Unremarkable. No cardiomegaly. No pericardial effusion. Lymph nodes: Unremarkable. No enlarged lymph nodes. Liver: The liver is diffusely low in attenuation consistent with hepatic steatosis. Bones/joints: Unremarkable. No acute fracture. Soft tissues: Unremarkable. CT/CT angio chest PE protcl [id number] IMPRESSION: 1. No pulmonary emboli. 2. No focal consolidations.
[2024-05-10] MEDS: iohexol 350 mg/mL 500 mL Btl (per mL) IV (17:38)
[2024-05-10 18:22] LABS: C Reactive Protein 4.1 mg/L (0.0-4.9)
--- NOTE | 2024-05-10 18:42 | PC.NURSE ---
Received report from Starla BOOKER at this time.
[2024-05-10 18:44] LABS: Troponin 5 2HR 37.61 ng/L (0-10); Troponin 5 2HR Delta 1.61 ABS# (0-10)
[2024-05-10] MEDS: ondansetron 2 mg/ML SDV 2 mL 4 MG IVP (19:08)
[2024-05-10] MEDS: lidocaine 2% viscous 15 ML, aluminum-mag hydrox-simethicon 30 ML, sucralfate oral liq 1 GM PO (19:08)
[2024-05-10] MEDS: morphine 4 mg/mL SDV 1 mL IVP (19:09)
[2024-05-10 20:50] LABS: Procalcitonin 0.05 ng/mL (0-0.5)
[2024-05-10 21:11] LABS: Glucose Point of Care 227 mg/dL (70-110)
[2024-05-10 21:13] LABS: Iron 46 ug/dL (37-145); Percent Saturation 13.2 % (20-50); Thyroid Stimulating Hormone 1.55 uIU/mL (0.27-4.20); Total Iron Binding Capacity 348 mcg/dl; Unsaturated Iron Binding 302 ug/dL (112-347); Vitamin B12 358 pg/mL (232-1245)
[2024-05-10] MEDS: losartan 50 mg Tablet PO (21:17)
[2024-05-10] MEDS: metoprolol tartrate 25 mg Tablet PO (21:18)
[2024-05-10] MEDS: enoxaparin 40 mg/0.4 mL Syringe SUBCUT (21:18)
[2024-05-10] MEDS: acetaminophen 325 mg Tablet 650 MG PO (21:19)
[2024-05-10] MEDS: pantoprazole 40 mg SDV IVP (21:19)
[2024-05-10] MEDS: insulin lispro 100 unit/1 mL SUBCUT (21:21)
--- NOTE | 2024-05-10 22:13 | ECG_ITS ---
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 Measurements Intervals [place] Rate: 92 P: 59 VA: 142 QRS: 43 QRSD: 92 T: 12 QT: 372 QTc: 461 Interpretive Statements SINUS RHYTHM WITH OCCASIONAL VENTRICULAR PREMATURE COMPLEXES Compared to ECG 05/10/2024 17:16:20 Ventricular premature complex(es) now present Myocardial infarct finding no longer present Electronically Signed On 05-11-2024 22:55:40 CDT by Kailash Esqueda M.D. [id number]
[2024-05-10 22:51] LABS: Troponin 5 6HR 52.77 ng/L (0-10)
[2024-05-10 22:55] LABS: Troponin 5 6HR Delta 16.77 ng/L (0-12)
--- NOTE | 2024-05-10 23:08 | PM.HP ---
Providers/Chief Complaint Admitting Physician: Dominic Vickers MD Primary Care Provider: MACK Bolaños Chief Complaint: chest pain History of Present Illness Jeannie Zamora is a 33 year old female with a past medical history of diabetes mellitus diagnosed in her 20s, hypertension who presents to the emergency room today for chief complaints of chest pain. Patient states the chest pain started on (today is Sunday), describes this as a stabbing sensation in the middle of her chest which is going all the way into the back between her shoulder blades. Along with that there was pain associated in the left arm radiating down from shoulder to her hand. Feeling lasted for a few minutes and resolved spontaneously. She has not noticed any worsening with activity on her ADLs. The pain first started on and patient had presented to the emergency room that day. EKG was within normal limits. Troponin was at 12. Patient was discharged with instructions to monitor her symptoms and return if pain got worse. Yesterday the pain started again spontaneously and she presented to the emergency room for evaluation. Her EKG today shows sinus rhythm without any acute ST-T wave changes, few VPCs are encountered. baseline troponin today at 36, trending up to 37 at 2 hours and then 52 at 6 hours with a delta of 16 at 6 hours. Her chest pain is currently resolved. She did not receive any nitro. Denies any abdominal pain nausea or vomiting. For her diabetes, she states that she was diagnosed with type 2 diabetes in her 20s. She was on lifestyle modification until recently when she started Trulicity and then later switched to Ozempic. The Ozempic has since been discontinued as it appeared to be bothering her abdomen. She does not remember her last A1c exactly. She was in 2022, delivered 9 months ago. States that she was not on any insulin during the course of her until the third trimester. HbA1c requested today returned at 10.5. Review of Systems General: Reports: 10 or more systems reviewed and unremarkable except in HPI and below Const: Denies: fever(s), chills or body aches Eyes: Denies: change in vision, blurry vision or photophobia ENMT: Reports: hoarseness; Denies: throat pain, enlarged tonsils, odynophagia or nasal congestion Card: Denies: chest pain, palpitations, irregular heart rhythm, edema, swelling of feet/ankles, lightheadedness, pre-syncope, dyspnea on exertion or orthopnea Resp: Denies: dyspnea, productive cough, non-productive cough, wheezing, stridor, pain on inspiration, change in phlegm color, hemoptysis or chest congestion GI: Denies: abdominal pain, nausea, vomiting, hematemesis, coffee ground emesis, dysphagia, heartburn, diarrhea, constipation, GI cramping, change in stool character, hematochezia or melena : Denies: flank pain, difficulty voiding, dysuria, urinary frequency, urinary urgency, urinary hesitancy or hematuria Musc: Denies: neck pain, back pain, extremity pain, joint swelling, joint warmth or deformity Neuro: Denies: headache(s), numbness in extremities, weakness in extremities, sensory changes, difficulty walking, frequent falls, dizziness, vertigo, behavioral changes, Slurred speech present or seizure-like activity Psych: Denies: anxiety, depression, suicidal ideation or homicidal ideation Endo: Denies: polyuria, polydipsia, tired all the time, cold intolerance or hot flashes Alexey/Lymph: Denies: easy bruising or easy bleeding Medications/Allergies Home Medications Medication Instructions Recorded Confirmed Last Taken Type blood sugar diagnostic (OneTouch #500 ea 01/05/23 03/19/24 Unknown Rx Verio test strips) lancets (OneTouch UltraSoft #500 ea 01/05/23 03/19/24 Unknown Rx Lancets) pen needle, diabetic 31 gauge x #100 ea 07/17/23 03/19/24 Unknown Rx 3/16 (Comfort EZ Pen [place]) flash glucose scanning reader #1 ea 12/21/23 03/19/24 Unknown Rx (FreeStyle Trini 2 [place]) flash glucose sensor (FreeStyle #1 ea 12/21/23 03/19/24 Unknown Rx Trini 2 Sensor kit) etonogestrel 68 mg subdermal subdermal 05/11/24 Unknown History implant (Nexplanon) Allergies Allergy/AdvReac Type Severity Reaction Status Date / Time No Known Allergies Allergy Verified 03/19/24 14:26 PFSH Acute PFSH: Medical History Rubella immune status not known Rubella was immune at 49.3 on 09/19/2022 Hypertension Diabetes Surgical History History of excision of pilonidal cyst (09/29/21) Hx of section 04/13/2019-----> primary low transverse delivery [place] by Dr. rivas [place] nonreassuring heart [place] [facility] [place] Double layer closure with no extensions. H/O oral surgery Family History Father Diabetes Hypertension Mother Hypertension Family/Other Breast cancer Maternal Great Aunt-- dx age 70's Denies family history of Colon cancer Ovarian cancer Heart disease Uterine cancer Thyroid disease Stroke Social History Smoking and tobacco/nicotine status: never used tobacco/nicotine Substance/Drug Use: never Vitals/I&O/Wt Last Vital Signs Temp 97.4 F L 05/10/24 21:30 Pulse 102 H 05/10/24 22:15 Resp 17 05/10/24 21:30 BP 133/72 05/10/24 22:15 Pulse Ox 97 05/10/24 22:15 O2 Del Method Room Air 05/10/24 22:32 05/10/24 05/10/24 05/11/24 14:59 22:59 06:59 Output Total 500 / 500 Balance -500 / -500 Weight last 48 hrs Weight 112.5 kg Weight 110.223 kg Physical Exam Narrative: General: No acute distress, AO x3 HEENT: PERRLA, pupils bilaterally equal and reactive, pallors not present Chest: Normal vesicular breath sounds, no added sounds, equal good air entry bilaterally CVS: S1-S2 regular, no murmurs, no tachycardia, no gallops, no rubs Abdomen: Soft, nontender, no organomegaly, bowel sounds present Neuro: No focal deficits, no facial deformity, AO x3, power 5/5 in all limbs Data 05/11/24 03:24 05/11/24 03:24 Other data: Launch?[employer] [facility] [address] [facility] [place] [address] CT Scan Report Signed Patient: Jeannie Zamora Unit #: [id number] : 1990 Age/Sex: 33 / F ADM Date: 05/10/24 Loc: ER Room/Bed: Attending Dr: Ordering Provider/Ordering MD: Brett Bloom DO Date of Service: 05/10/24 Procedure(s): CT angio chest PE protcl [id number] Accession Number(s): [id number] Report Number: [id number] PROCEDURE INFORMATION: Exam: CTA Chest With Contrast Exam date and time: 05/10/2024 5:34 PM Age: 33 years old Clinical indication: Shortness of breath; Additional info: Chest pain shortness of breath TECHNIQUE: Imaging protocol: Computed tomographic angiography of the chest with contrast. Exam focused on the arteries. 3D rendering (Not supervised by radiologist): MIP and/or 3D reconstructed images were created by the technologist. Radiation optimization: All CT scans at this facility use at least one of these dose optimization techniques: automated exposure control; mA and/or kV adjustment per patient size (includes targeted exams where dose is matched to clinical indication); or iterative reconstruction. Contrast material: OMNIPAQUE 350; Contrast volume: 71 ml; Contrast route: INTRAVENOUS (IV); COMPARISON: CR (CHEST, ) 05/10/2024 2:05 PM RADIATION DOSE METRICS: Total DLP (mGy-cm): 471.76 FINDINGS: Pulmonary arteries: No pulmonary emboli. Aorta: Unremarkable. No aortic aneurysm. No aortic dissection. Lungs: No focal consolidations. Pleural spaces: Unremarkable. No pneumothorax. No pleural effusion. Heart: Unremarkable. No cardiomegaly. No pericardial effusion. Lymph nodes: Unremarkable. No enlarged lymph nodes. Liver: The liver is diffusely low in attenuation consistent with hepatic steatosis. Bones/joints: Unremarkable. No acute fracture. Soft tissues: Unremarkable. CT/CT angio chest PE protcl [id number] IMPRESSION: 1. No pulmonary emboli. 2. No focal consolidations. XR/XR chest 1V portable [id number] IMPRESSION: No acute findings. A&P Assessment and plan (1) NSTEMI (non-ST elevated myocardial infarction): 33-year-old lady with several cardiovascular risk factors including hypertension, diabetes presenting to the emergency room with recurrent chest pain. Troponin series with 36---> 37--> 52 with a delta of 16 at 6 hours. Recent troponin few days ago at 12. EKG without acute ST-T wave changes, few VPCs encountered. Given the uptrending troponin and ongoing chest discomfort, concern for NSTEMI given her several cardiovascular risk factors Admit to CSU Continuous telemetry monitoring Aspirin 325 mg now stat followed by aspirin 81 mg p.o. daily Start atorvastatin 40 mg p.o. daily Lovenox 1 mg/kg subcutaneously every 12 hours Recheck troponin with a.m. labs If continues to trend up, will need to consult cardiology for possible angiogram. If troponin trend stabilizes versus downtrending, may further evaluate with a stress test Echocardiogram to assess for any regional wall motion abnormalities. Additionally tested positive for rhino/enterovirus. Possibility of viral myocarditis not excluded at this time, will await echocardiogram as noted above. (2) Hypertension: Uncontrolled hypertension ; she has received hydralazine 5 mg IV, amlodipine 10 mg in the emergency room. Patient is tachycardic with heart rate ranging between 10 3-1 27. Will start metoprolol 25 mg p.o. twice daily. Qualifiers: Hypertension type: primary hypertension Qualified Code(s): I10 - Essential (primary) hypertension (3) Uncontrolled diabetes mellitus: HbA1c at 10.5. Patient reports recently being on Ozempic which has since been discontinued. Insulin sliding scale for now. Estimate 24-hour requirements and then switch to Lantus and sliding scale. Discussed with the patient that with A1c of 10.5 patient may need at least short-term insulin at discharge. She is agreeable for the same. Plan DVT prophylaxis: Currently on full dose Lovenox for NSTEMI Full code Attestations Medical Necessity Statement*: Greater than 2 midnight stay is anticipated Coding Level of Care Code Acute Code for Chg Fwd High MDM includes number and complexity of problems actively addressed during encounter, amount and/or complexity of data reviewed/ordered and described risk of complication, morbidity or mortality of management as documented Diagnoses NSTEMI (non-ST elevated myocardial infarction) I21.4 Primary hypertension I10 Hypertension type: primary hypertension Uncontrolled diabetes mellitus
[2024-05-10 23:09] LABS: Bilirubin Urine Negative (Negative); Blood Urine 3+ (Negative); Glucose Urine UA 3+ (Normal); Ketones Urine 2+ (Negative); Leukocyte Esterase Urine Negative (Negative); Nitrate Urine Negative (Negative); Protein Urine Negative (Negative); Urine Appearance Clear (CLEAR); Urine Color Yellow (Yellow); pH Urine 6.5 (5-7)
[2024-05-10 23:12] LABS: Add Urine Microscopic? YES; Bacteria Urine None Seen /hpf; Hyaline Casts Urine 0-4 /lpf; RBC Urine 0-2 /hpf (0-2); Squamous Epithelial Cell Urine 0-5 /hpf (0-5); WBC Urine 0-5 /hpf (0-5)
[2024-05-10 23:18] LABS: Amphetamines Screen Urine Negative (Negative); Barbiturates Screen Urine Negative (Negative); Benzodiazepines Screen Urine Negative (Negative); Cocaine Screen Urine Negative (Negative); Opiate Screen Urine Positive (Negative); PCP Screen Urine Negative (Negative); THC Screen Urine Negative (Negative)
[2024-05-10 23:26] LABS: Adenovirus Not Detected (NOT DETECT); Chlamydia Pneumoniae Not Detected (NOT DETECT); Coronavirus 229E,HKU1,NL63,OC4 Not Detected (NOT DETECT); Human Metapneumovirus Not Detected (NOT DETECT); Human Rhinovirus/Enterovirus Detected (NOT DETECT); Influenza A Not Detected (NOT DETECT); Influenza A H1 Not Detected (NOT DETECT); Influenza A H1-2009 Not Detected (NOT DETECT); Influenza A H3 Not Detected (NOT DETECT); Influenza B Not Detected (NOT DETECT); Mycoplasma Pneumoniae Not Detected (NOT DETECT); Parainfluenza Virus Type 1 Not Detected (NOT DETECT); Parainfluenza Virus Type 2 Not Detected (NOT DETECT); Parainfluenza Virus Type 3 Not Detected (NOT DETECT); Parainfluenza Virus Type 4 Not Detected (NOT DETECT); Respiratory Syncytial Virus A Not Detected (NOT DETECT); Respiratory Syncytial Virus B Not Detected (NOT DETECT); SARS-COV-2 Not Detected (NOT DETECT)
[2024-05-10] MEDS: enoxaparin 100 mg/mL Syringe 60 MG SUBCUT (23:37)
[2024-05-10] MEDS: aspirin 325 mg Tablet PO (23:37)
[2024-05-11] VITALS (13 sets, daily range): BP systolic 110–143; BP diastolic 59–91; PULSE 70–92; RESP 15–23; TEMP 36.7–36.9; O2SAT 93–97
[2024-05-11 03:33] LABS: Basophils % 0.4 %; Eosinophils # 0.1 10^3/uL (0.0-0.8); Hematocrit 45.5 % (36-47); Lymphocytes # 3.5 10^3/uL (0.8-4.8); Lymphocytes % 35.8 %; Mean Corpuscular Hemoglobin 28.9 pg (27-33); Mean Corpuscular Volume 87.7 fl (85-98); Mean Platelet Volume 9.8 fL (7.4-10.4); Monocytes # 0.6 10^3/uL (0.2-0.9); Monocytes % 6.4 %; Neutrophils # 5.54 10^3/uL (1.8-7.7); Nucleated Red Blood Cells % 0 %; Platelet Count 261 10^3/cmm (157-399); Red Blood Count 5.19 10^6/uL (3.85-5.65); Red Cell Distribution Width 12.6 % (12.1-15.1); White Blood Count 9.89 10^3/uL (3.29-11.43)
[2024-05-11 03:50] LABS: Chol HDL Ratio 8.65 mg/dL (0.0-4.40); Cholesterol 268 mg/dL (0-200); HDL Cholesterol 31 mg/dL (60-100)
[2024-05-11 03:53] LABS: Alanine Aminotransferase 27 U/L (0-33); Albumin Level 3.9 g/dL (3.5-5.2); Alkaline Phosphatase 29 U/L (35-105); Blood Urea Nitrogen 12 mg/dL (6-20); Carbon Dioxide 21 mmol/L (22-29); Chloride 99 mmol/L (98-107); Creatinine Clr Calc Pharmacy 169.8583; Globulin 3.3 g/dL (1.3-4.6); Glomerular Filtration Rate 116.6 mL/min (90-130); Glucose 299 mg/dL (65-115); Magnesium 2.1 mg/dL (1.7-2.3); Osmolality Calculated 285 mOsm/kg (285-295); Phosphorus 4.4 mg/dL (2.5-4.5); Sodium 132 mmol/L (136-145); Total Bilirubin 0.3 mg/dL (0.15-1.2); Total Protein 7.2 g/dL (6.6-8.7)
[2024-05-11 03:57] LABS: Anion Gap 16.5 (5-19); Estmated Average Glucose 255; Hemoglobin A1C 10.5 % (4.0-6.0); Potassium 4.5 mmol/L (3.5-5.1)
[2024-05-11 04:03] LABS: Aspartate Amino Transferase 5 U/L (0-32)
[2024-05-11 04:07] LABS: Triglycerides 1180 mg/dL (0-150)
[2024-05-11 04:18] LABS: LDL Cholesterol Direct 140 mg/dL (0-100)
[2024-05-11 04:46] LABS: Folate Level 16.4 ng/mL (4.8-37.3)
[2024-05-11 05:35] LABS: Lipase 53 U/L (13-60)
[2024-05-11 05:42] LABS: HCG, Serum Qual Negative (Negative)
[2024-05-11 05:59] LABS: Troponin T (5th) Once 90 ng/L (0-10)
--- NOTE | 2024-05-11 06:00 | USCV_ITS ---
Jeannie Zamora Age: 33 Gender: F : 1990 Exam Date: 05/11/2024 09:21 Ordering Phys: Dominic Vickers MD Technologist: Rashel Romeo [place] [facility] [place]: MYOCARDITIS BP: 131 / 79 HR: 78 Rhythm: Sinus Technical Quality: Adequate MEASUREMENTS (Male / Female) Normal Values 2D ECHO LV Diastolic Diameter PLAX 3.9 cm 4.2 - 5.9 / 3.9 - 5.3 cm IVS Diastolic Thickness 1.2 cm 0.6 - 1.0 / 0.6 - 0.9 cm IVS Systolic Thickness 1.5 cm LVPW Diastolic Thickness 1.3 cm 0.6 - 1.0 / 0.6 - 0.9 cm LVPW Systolic Thickness 2.1 cm LVOT Diameter 2.1 cm LV Ejection Fraction 2D Teich 70.7 % LV Ejection Fraction MOD 4C 61.4 % LV Ejection Fraction MOD 2C 56.9 % LV Ejection Fraction 2C AL 56.8 % LA Diameter 3.1 cm RA Systolic Volume 4C AL 39.0 ml RA Systolic Volume 4C MOD 38.1 ml LA Sys Volume AL 53.1 cm cubed LA Sys Volume Index AL 22.8 cm cubed/m squared Aorta at Sinotubular Diameter 2.2 cm IVC Diameter 1.8 cm M-MODE LA Ao Ratio MM 1.5 AV Cusp Separation MM 2.1 cm DOPPLER AV Peak Velocity 151.0 cm/s LVOT Peak Velocity 136.0 cm/s AV Area Cont Eq vti 3.5 cm squared AV Area Cont Eq pk 3.1 cm squared MV Peak Velocity 369.7 cm/s MV Area PHT 4.8 cm squared Mitral E to A Ratio 1.4 TV Peak Velocity 293.0 cm/s TR Peak Velocity 331.0 cm/s TR Peak Gradient 43.8 mmHg TR Mean Velocity 243.0 cm/s TR Mean Gradient 25.7 mmHg TR Velocity Time Integral 79.3 cm PV Peak Velocity 113.0 cm/s RV Ejection Time 0.3 s FINDINGS Left Ventricle Normal left ventricular size and systolic function, EF 57%.no regional wall motion abnormalities. Grade III/IV diastolic dysfunction (restrictive filling pattern), severely elevated filling pressures. Right Ventricle The right ventricle is normal in size and function. Right Atrium The right atrium is normal in size. Left Atrium Mildly increased left atrial size. Mitral Valve No gross abnormalities noted.trace mitral valve regurgitation. Aortic Valve No gross abnormalities noted Tricuspid Valve Trace tricuspid valve regurgitation. Pulmonic Valve Pulmonic valve not well visualized. Pericardium Normal pericardium without effusion. Aorta Normal ascending aorta dimension. IVC Inferior vena cava not visualized. CONCLUSIONS Normal left ventricular size and systolic function, EF 57%.no regional wall motion abnormalities. Type III diastolic dysfunction. Mildly increased left atrial size. Trace tricuspid valve regurgitation. Estimated pulmonary artery peak systolic pressure 26 mmHg There is no pericardial effusion. There are no intracardiac masses. No similar previous studies are available for comparison Dr Kailash Esqueda MD [facility] (Electronically Signed) Final Date: 11 May 2024 14:18 S
[2024-05-11 07:01] LABS: Glucose Point of Care 239 mg/dL (70-110)
[2024-05-11] MEDS: clopidogrel 300 mg Tablet PO (08:16)
[2024-05-11] MEDS: clopidogrel 75 mg Tablet PO (08:16)
[2024-05-11] MEDS: aspirin 81 mg Chew Tablet PO (08:17)
[2024-05-11] MEDS: enoxaparin 100 mg/mL Syringe 110 MG SUBCUT ×2 (08:17→20:37)
[2024-05-11] MEDS: metoprolol tartrate 25 mg Tablet PO ×2 (08:17→20:36)
[2024-05-11] MEDS: losartan 50 mg Tablet PO (08:17)
[2024-05-11] MEDS: insulin lispro 100 unit/1 mL SUBCUT ×4 (08:17→20:37)
--- NOTE | 2024-05-11 09:46 | P.CONIM_ITS ---
Providers/Reason For Consult 2 Consulting Physician/Specialty*: DONA Esqueda MD/cardiology Reason for Consult*: Patient with prolonged episode of chest pain, multiple risk factors for coronary artery disease, elevated troponin T Requesting Physician: Dr Clayton Mann/Dr. Perez Attending Physician: Zan Perez MD Primary Care Provider: MACK Bolaños History of Present Illness History of Present Illness Jeannie Zamora is a 33 year old female with a history of diabetes, essential benign hypertension, is presenting with complaints of a prolonged episode of chest pain. She was found to have elevated troponin T. Cardiology consult is requested for further cardiac evaluation recommendations. The patient has a history of diabetes for the last more than 10 years. Her diabetes has been out of control lately. She was taking Trulicity before lately it was changed to Ozempic. According to the patient, she had a lot of side effects with this medication. So she quit taking this medicine by herself. Her hemoglobin A1c is around 10 at this time. For the last couple of weeks, she been having some post prolapse symptoms. She also was having some chest discomfort. She was seen in the emergency room couple of days ago with a chest pain. Initial cardiac workup was negative. Yesterday morning she was making breakfast for her family. All of a sudden, she started having the pain. The pain was in the left side of the chest, radiating across and to the back between the shoulder blades. It also was radiating to the left shoulder to the left arm and then to the right shoulder as well. Has intensity of the pain started getting worse. It became 8/10. She had some associated shortness of breath and nausea. Because of the persistence of the pain, she was brought to the emergency room. The pain gradually subsided over a period of 1-1 and half hours. At the time my examination, patient is pain-free. Patient has no previous history for coronary disease, myocardial infarction or congestive heart failure. Has a father had a permanent pacer implantation in his late 50s or early 60s. No other relevant family history for heart disease. Review of Systems 2 Narrative: CONSTITUTIONAL: No fever or chills. EYES: No blurring of vision or other visual disturbances lately. ENT: No hoarseness of voice, auditory disturbances or sore throat. CARDIOVASCULAR: As mentioned above. RESPIRATORY: No significant cough. GASTROINTESTINAL: No hematemesis or melena. GENITOURINARY: No dysuria or hematuria. INTEGUMENTARY: No skin rashes or history of skin cancer. NEURO: No transient ischemic attacks or amaurosis. PSYCHIATRIC: No history of psychosis or major depression. HEMATOLOGIC: No bleeding disorders or significant anemia. ENDOCRINE: Uncontrolled diabetes as mentioned above MUSCULOSKELETAL: No recent joint pain or swelling. ALLERGY/IMMUNOLOGY: As mentioned above. Medications/Allergies Home Medications Medication Instructions Recorded Confirmed Last Taken Type blood sugar diagnostic (OneTouch #500 ea 01/05/23 03/19/24 Unknown Rx Verio test strips) lancets (OneTouch UltraSoft #500 ea 01/05/23 03/19/24 Unknown Rx Lancets) pen needle, diabetic 31 gauge x #100 ea 07/17/23 03/19/24 Unknown Rx 3/16 (Comfort EZ Pen [place]) flash glucose scanning reader #1 ea 12/21/23 03/19/24 Unknown Rx (FreeStyle Trini 2 [place]) flash glucose sensor (FreeStyle #1 ea 12/21/23 03/19/24 Unknown Rx Trini 2 Sensor kit) etonogestrel 68 mg subdermal subdermal 05/11/24 Unknown History implant (Nexplanon) Allergies Allergy/AdvReac Type Severity Reaction Status Date / Time No Known Allergies Allergy Verified 03/19/24 14:26 Current Medications Generic Name Dose Route Start Last Admin Trade Name Freq PRN Reason Stop Dose Admin Acetaminophen 650 mg 05/10/24 20:22 05/10/24 21:19 Acetaminophen 325 Mg Tablet PO 650 mg Q6H PRN Administration Mild/Mod Pain Or Temp >/= 101 Aspirin 81 mg 05/11/24 09:00 05/11/24 08:17 Aspirin 81 Mg Chew Tablet PO 81 mg DAILY KRISTEL Administration Clopidogrel Bisulfate 75 mg 05/11/24 09:00 05/11/24 08:16 Clopidogrel 75 Mg Tablet PO 75 mg DAILY KRISTEL Administration Enoxaparin Sodium 110 mg 05/11/24 09:00 05/11/24 08:17 Enoxaparin 100 Mg/Ml Syringe 1 mg/kg (110 mg) 110 mg SUBCUT Administration Q12H [facility] Insulin Human Lispro 0 unit 05/10/24 21:00 05/11/24 08:17 Insulin Lispro 100 Unit/1 Ml SUBCUT 8 unit WM&BEDTIME KRISTEL Administration Protocol Losartan Potassium 50 mg 05/10/24 20:10 05/11/24 08:17 Losartan 50 Mg Tablet PO 50 mg DAILY KRISTEL Administration Metoprolol Tartrate 25 mg 05/10/24 21:00 05/11/24 08:17 Metoprolol Tartrate 25 Mg Tablet PO 25 mg BID@0900,2100 KRISTEL Administration Pantoprazole Sodium 40 mg 05/10/24 20:22 05/10/24 21:19 Pantoprazole 40 Mg Sdv IVP 40 mg Q24H KRISTEL Administration PFSH Acute 2 PFSH: Medical History Rubella immune status not known Rubella was immune at 49.3 on 09/19/2022 Hypertension Diabetes Surgical History History of excision of pilonidal cyst (09/29/21) Hx of section 04/13/2019-----> primary low transverse delivery performed by Dr. rivas for nonreassuring heart tracing at [facility] [place]. Double layer closure with no extensions. H/O oral surgery Family History Father Diabetes Hypertension Mother Hypertension Family/Other Breast cancer Maternal Great Aunt-- dx age 70's Denies family history of Colon cancer Ovarian cancer Heart disease Uterine cancer Thyroid disease Stroke Social History Smoking and tobacco/nicotine status: never used tobacco/nicotine Substance/Drug Use: never Vitals/I&O/Wt Last Vital Signs Temp 98.4 F 05/11/24 04:00 Pulse 70 05/11/24 07:45 Resp 16 05/11/24 04:00 BP 131/79 05/11/24 08:17 Pulse Ox 95 05/11/24 07:45 O2 Del Method Room Air 05/11/24 07:45 05/10/24 05/11/24 05/11/24 22:59 06:59 14:59 Intake Total 240 / 240 Output Total 1500 / 1500 Balance -1260 / -1260 Weight last 48 hrs Weight 248 lb Weight 248 lb 0.321 oz Weight 243 lb Physical Exam 2 Narrative: GENERAL: The patient is alert and oriented times three. Not in any acute distress. Moderately obese HEENT: No significant pallor, icterus or lymphadenopathy.Oral cavity: There are no mucous membrane lesions. NECK: Trachea appears to be central. No masses noted. No JVD or thyromegaly appreciated. RESPIRATORY: Chest is symmetrical. No intercostals muscle retraction or any accessory muscle activation. There is no chest wall tenderness. Breath sounds are heard bilaterally. No rales or rhonchi heard. No evidence of any consolidation. BREASTS: Deferred. HEART: The heart sounds are normal. No S3 or S4. No significant murmurs. No pericardial rub ABDOMEN: No vessel pulsations or distention. No tenderness. No organomegaly appreciated. Bowel sounds are normally heard. : Deferred. RECTAL: Deferred. LYMPHATIC: No lymphadenopathy noted in the neck. EXTREMITIES: No edema or cyanosis. No clubbing. MUSCULOSKELETAL: No acute joint deformities or swelling SKIN: There are no significant rashes or ecchymosis NEUROPSYCHIATRIC: The patient is alert and oriented x3. Appears to be in a good mood. No tremors or rigidity noted. Data 05/11/24 03:24 05/11/24 03:24 Other Labs: Laboratory Last Values WBC 9.89 10^3/uL (3.29-11.43) 05/11/24 03:24 RBC 5.19 10^6/uL (3.85-5.65) 05/11/24 03:24 Hgb 15.00 g/dL (11.27-16.99) 05/11/24 03:24 Hct 45.5 % (36-47) 05/11/24 03:24 MCV 87.7 fl (85-98) 05/11/24 03:24 MCH 28.9 pg (27-33) 05/11/24 03:24 MCHC 33.0 g/dL (30-55) 05/11/24 03:24 RDW 12.6 % (12.1-15.1) 05/11/24 03:24 Plt Count 261 10^3/cmm (157-399) 05/11/24 03:24 MPV 9.8 fL (7.4-10.4) 05/11/24 03:24 Neut % (Auto) 56.0 % 05/11/24 03:24 Lymph % (Auto) 35.8 % 05/11/24 03:24 [place] % (Auto) 6.4 % 05/11/24 03:24 Eos % (Auto) 1.0 % 05/11/24 03:24 Baso % (Auto) 0.4 % 05/11/24 03:24 Neut # (Auto) 5.54 10^3/uL (1.8-7.7) 05/11/24 03:24 Lymph # (Auto) 3.5 10^3/uL (0.8-4.8) 05/11/24 03:24 [place] # (Auto) 0.6 10^3/uL (0.2-0.9) 05/11/24 03:24 Eos # (Auto) 0.1 10^3/uL (0.0-0.8) 05/11/24 03:24 Baso # (Auto) 0.0 10^3/uL (0.0-0.1) 05/11/24 03:24 Nucleated RBC % (auto) 0 % 05/11/24 03:24 Nucleated RBCs # 0.0 /100WBC 05/11/24 03:24 D-Dimer 0.31 ug/mLFEU (0-0.59) 05/10/24 15:24 Sodium 132 mmol/L (136-145) L 05/11/24 03:24 Potassium 4.5 mmol/L (3.5-5.1) 05/11/24 03:24 Chloride 99 mmol/L (98-107) 05/11/24 03:24 Carbon Dioxide 21 mmol/L (22-29) L 05/11/24 03:24 Anion Gap 16.5 (5-19) 05/11/24 03:24 BUN 12 mg/dL (6-20) 05/11/24 03:24 Creatinine 0.6 mg/dL (0.5-0.9) 05/11/24 03:24 GFR Calculation 116.6 mL/min (90-130) 05/11/24 03:24 Glucose 299 mg/dL (65-115) H 05/11/24 03:24 POC Glucose 239 mg/dL (70-110) H 05/11/24 06:58 Estimat Average Glucose 255 05/11/24 03:24 Hemoglobin A1c 10.5 % (4.0-6.0) H 05/11/24 03:24 Calculated Osmolality 285 mOsm/kg (285-295) 05/11/24 03:24 Calcium 9.0 mg/dL (8.5-10.5) 05/11/24 03:24 Phosphorus 4.4 mg/dL (2.5-4.5) 05/11/24 03:24 Magnesium 2.1 mg/dL (1.7-2.3) 05/11/24 03:24 Iron 46 ug/dL (37-145) 05/10/24 18:20 TIBC 348 mcg/dl 05/10/24 18:20 % Saturation 13.2 % (20-50) L 05/10/24 18:20 Unsat Iron Binding 302 ug/dL (112-347) 05/10/24 18:20 Total Bilirubin 0.3 mg/dL (0.15-1.2) 05/11/24 03:24 AST 5 U/L (0-32) 05/11/24 03:24 ALT 27 U/L (0-33) 05/11/24 03:24 Alkaline Phosphatase 29 U/L (35-105) L 05/11/24 03:24 Troponin T 5th Gen ng/L 90 ng/L (0-10) H 05/11/24 03:24 Troponin T Baseline 36 ng/L (0-10) H 05/10/24 16:08 Troponin T 120 Minute 37.61 ng/L (0-10) H 05/10/24 18:20 Delta Troponin T 1.61 ABS# (0-10) 05/10/24 18:20 Troponin T Hi Sens 6Hr 52.77 ng/L (0-10) H 05/10/24 22:24 Troponin T Hi Sens 6Hr Delta 16.77 ng/L (0-12) H* 05/10/24 22:24 C-Reactive Protein 4.1 mg/L (0.0-4.9) 05/10/24 16:08 Total Protein 7.2 g/dL (6.6-8.7) 05/11/24 03:24 Albumin 3.9 g/dL (3.5-5.2) 05/11/24 03:24 Globulin 3.3 g/dL (1.3-4.6) 05/11/24 03:24 Triglycerides 1180 mg/dL (0-150) H 05/11/24 03:24 Cholesterol 268 mg/dL (0-200) H 05/11/24 03:24 LDL Cholesterol Direct 140 mg/dL (0-100) H 05/11/24 03:24 LDL Cholesterol, Calc Not Reportable 05/11/24 03:24 HDL Cholesterol 31 mg/dL (60-100) L 05/11/24 03:24 LDL/HDL Ratio Not Reportable 05/11/24 03:24 Cholesterol/HDL Ratio 8.65 mg/dL (0.0-4.40) H 05/11/24 03:24 Lipase 53 U/L (13-60) 05/11/24 03:24 Vitamin B12 358 pg/mL (232-1245) 05/10/24 18:20 Folate 16.4 ng/mL (4.8-37.3) 05/11/24 03:24 Procalcitonin 0.05 ng/mL (0-0.5) 05/10/24 16:08 TSH 1.55 uIU/mL (0.27-4.20) 05/10/24 18:20 HCG, Qual Negative (Negative) 05/11/24 03:24 Urine Color Yellow (Yellow) 05/10/24 22:59 Urine Appearance Clear (CLEAR) 05/10/24 22:59 Urine pH 6.5 (5-7) 05/10/24 22:59 Ur Specific [place] 1.040 (1.005-1.030) H 05/10/24 22:59 Urine Protein Negative (Negative) 05/10/24 22:59 Urine Glucose (UA) 3+ (Normal) H 05/10/24 22:59 Urine Ketones 2+ (Negative) H 05/10/24 22:59 Urine Blood 3+ (Negative) A 05/10/24 22:59 Urine Nitrate Negative (Negative) 05/10/24 22:59 Urine Bilirubin Negative (Negative) 05/10/24 22:59 Urine Urobilinogen 1.0 mg/dL (Negative) 05/10/24 22:59 Ur Leukocyte Esterase Negative (Negative) 05/10/24 22:59 Urine RBC 0-2 /hpf (0-2) 05/10/24 22:59 Urine WBC 0-5 /hpf (0-5) 05/10/24 22:59 Ur Squamous Epith Cells 0-5 /hpf (0-5) 05/10/24 22:59 Amorphous Sediment Not Reportable 05/10/24 22:59 Urine Bacteria None seen /hpf (NONE) 05/10/24 22:59 Hyaline Casts 0-4 /lpf H 05/10/24 22:59 Urine Opiates Screen Positive ng/mL (Negative) H 05/10/24 22:59 Ur Barbiturates Screen Negative ng/mL (Negative) 05/10/24 22:59 Ur Phencyclidine Scrn Negative ng/mL (Negative) 05/10/24 22:59 Ur Amphetamines Screen Negative ng/mL (Negative) 05/10/24 22:59 U Benzodiazepines Scrn Negative ng/mL (Negative) 05/10/24 22:59 Urine Cocaine Screen Negative ng/mL (Negative) 05/10/24 22:59 U Marijuana (THC) Screen Negative ng/mL (Negative) 05/10/24 22:59 Adenovirus (PCR) Not detected (NOT DETECT) 05/10/24 21:15 C. pneumoniae DNA (PCR) Not detected (NOT DETECT) 05/10/24 21:15 Coronavirus 229E (PCR) Not detected (NOT DETECT) 05/10/24 21:15 Human Metapneumovir PCR Not detected (NOT DETECT) 05/10/24 21:15 Influenza A (H1) PCR Not detected (NOT DETECT) 05/10/24 21:15 Influ A (H1/09) PCR Not detected (NOT DETECT) 05/10/24 21:15 Influenza A (H3) PCR Not detected (NOT DETECT) 05/10/24 21:15 Influenza Type A (PCR) Not detected (NOT DETECT) 05/10/24 21:15 Influenza Type B (PCR) Not detected (NOT DETECT) 05/10/24 21:15 M. pneumoniae (PCR) Not detected (NOT DETECT) 05/10/24 21:15 Parainfluenza 1 (PCR) Not detected (NOT DETECT) 05/10/24 21:15 Parainfluenza 2 (PCR) Not detected (NOT DETECT) 05/10/24 21:15 Parainfluenza 3 (PCR) Not detected (NOT DETECT) 05/10/24 21:15 Parainfluenza 4 (PCR) Not detected (NOT DETECT) 05/10/24 21:15 RSV Type A (PCR) Not detected (NOT DETECT) 05/10/24 21:15 RSV Type B (PCR) Not detected (NOT DETECT) 05/10/24 21:15 Entero/Rhino (PCR) Detected (NOT DETECT) A 05/10/24 21:15 SARS-CoV-2 (PCR) Not detected (NOT DETECT) 05/10/24 21:15 EKG 1: Meter/Relay Technician Interpretation: Sinus rhythm with occasional PVCs. Normal ST Ts. Poor R wave progression. A&P Assessment and plan (1) NSTEMI (non-ST elevated myocardial infarction): The patient's clinical features are suggestive of an unstable angina complicated with a non-ST elevation myocardial infarction. Hemodynamically she seems to be stable. EKG is unremarkable. For further evaluation of the cardiovascular status, an echocardiogram would be helpful. Patient also will be started on subcu Lovenox, p.o. aspirin, Plavix and beta-socrates. Based on clinical progress, further recommendations will be made. (2) Hypertension: Blood pressure is minimally elevated. May continue on the lisinopril and beta- socrates. Qualifiers: Hypertension type: primary hypertension Qualified Code(s): I10 - Essential (primary) hypertension (3) Uncontrolled diabetes mellitus: Patient's diabetes is uncontrolled. Aggressive management be appropriate. Qualifiers: Diabetes mellitus type: type 1 Glycemic state: with hyperglycemia Qualified Code(s): E10.65 - Type 1 diabetes mellitus with hyperglycemia (4) Dyslipidemia: Apparently the patient had been treated for any dyslipidemia. High-dose statin would be appropriate. Her triglyceride also Significant elevated. (5) Premature ventricular contractions: Could be related to ischemia. Currently seems to be asymptomatic. Plan Echocardiogram would be helpful to evaluate LV function and rule out any other pathology. Based on the results of the above tests and the patient's clinical progress, further recommendations will be made. Thank you for the opportunity to evaluate this patient and make these recommendations Coding Level of Care Code 59050 Diagnoses NSTEMI (non-ST elevated myocardial infarction) I21.4 Primary hypertension I10 Hypertension type: primary hypertension Uncontrolled type 1 diabetes mellitus with hyperglycemia E10.65 Diabetes mellitus type: type 1 Glycemic state: with hyperglycemia Dyslipidemia E78.5 Premature ventricular contractions I49.3
[2024-05-11 10:39] LABS: Glucose Point of Care 268 mg/dL (70-110)
[2024-05-11] MEDS: sodium chloride 0.9% 1,000 ML 75 ML IV (12:54)
[2024-05-11] MEDS: fenofibrate 145 mg Tablet PO (12:54)
[2024-05-11] MEDS: nitroglycerin 0.4 mg sublingual Tablet SUBLINGUAL (16:26)
--- NOTE | 2024-05-11 16:31 | ECG_ITS ---
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 Measurements Intervals [place] Rate: 95 P: 53 VA: 132 QRS: 31 QRSD: 86 T: 23 QT: 361 QTc: 455 Interpretive Statements SINUS RHYTHM WITH OCCASIONAL VENTRICULAR PREMATURE COMPLEXES POSSIBLE LEFT ATRIAL ENLARGEMENT [-0.1mV P-WAVE IN V1/V2] POSSIBLE ANTERIOR MYOCARDIAL INFARCTION , OF INDETERMINATE AGE [30 ms Q WAVE IN V3/V4, OR R < 0.2 mV IN V4] Compared to ECG 05/10/2024 22:13:36 Myocardial infarct finding now present Electronically Signed On 05-11-2024 22:44:54 CDT by Kailash Esqueda M.D. [id number]
[2024-05-11 17:11] LABS: Glucose Point of Care 267 mg/dL (70-110)
[2024-05-11 17:29] LABS: Troponin T (5th) Once 87 ng/L (0-10)
--- NOTE | 2024-05-11 17:43 | P.PN_ITS ---
Subjective 2 Subjective: Patient was seen this morning, we discussed her type 2 diabetes mellitus, she tells me that before she got , she was diagnosed with diabetes, she was on Trulicity and her A1c came down to 5.5 as she had lost a lot of weight, she became , and she gained a lot of weight back she tells me, her A1c was elevated after her so she was placed on Ozempic but she has not really lost a lot of weight with Ozempic, she has not upon on any other diabetic medication, but does report she was on metformin early on and it caused GI problems so she stopped taking it she has never been on insulin. I also discussed her hypertriglyceridemia her triglycerides over thousand, she has a history of hypertriglyceridemia she is not on any medication currently for it, denies any family history of hypertriglyceridemia, denies any abdominal pain, discussed the risk of CAD, strokes, pancreatitis, associate with hypertriglyceridemia, will have to get this under control or she has significant complications associate with this in the near future, I am hoping with her diabetes more under control, her blood sugars under control the triglycerides should also come down, Vitals/I&O/Wt Last Vital Signs Temp 98.4 F 05/11/24 04:00 Pulse 92 05/11/24 16:00 Resp 17 05/11/24 16:00 BP 120/87 05/11/24 16:00 Pulse Ox 97 05/11/24 16:00 O2 Del Method Room Air 05/11/24 07:45 05/11/24 05/11/24 05/11/24 06:59 14:59 22:59 Intake Total 240 / 240 360 / 360 Output Total 1500 / 1500 2300 / 2300 Balance -1260 / -1260 360 / 360 -2300 / -1940 Weight last 48 hrs Weight 112.491 kg Weight 112.491 kg Weight 112.5 kg Weight 110.223 kg Physical Exam 2 Const: COMMON NORMALS: no acute distress and patient oriented x3 Resp: COMMON NORMALS: normal respiratory effort, No retractions, No use of accessory muscles and clear to auscultation bilaterally AUSCULTATION: clear to auscultation bilaterally Cardio: COMMON NORMALS: regular rate, regular rhythm, S1 normal heart sound present and S2 normal heart sound present RATE: regular rate RHYTHM: r egular rhythm HEART SOUNDS: S1 normal heart sound present and S2 normal heart sound present GI: COMMON NORMALS: Normal to inspection, nondistended, normoactive bowel sounds present and non-tender Extremity: COMMON NORMALS: no pedal edema Neuro: COMMON NORMALS: patient oriented x3 Psych: COMMON NORMALS: mental status grossly normal Data 05/11/24 03:24 05/11/24 03:24 A&P Assessment and plan (1) NSTEMI (non-ST elevated myocardial infarction): 33-year-old lady with several cardiovascular risk factors including hypertension, diabetes presenting to the emergency room with recurrent chest pain. Troponin series with 36---> 37--> 52 with a delta of 16 at 6 hours. Recent troponin few days ago at 12. EKG without acute ST-T wave changes, few VPCs encountered. Given the uptrending troponin and ongoing chest discomfort, concern for NSTEMI given her several cardiovascular risk factors Admit to CSU Continuous telemetry monitoring Aspirin 325 mg now stat followed by aspirin 81 mg p.o. daily Started on Plavix 75 mg Start atorvastatin 40 mg p.o. daily Lovenox 1 mg/kg subcutaneously every 12 hours Cardiology consulted Echocardiogram CONCLUSIONS Normal left ventricular size and systolic function, EF 57%.no regional wall motion abnormalities. Type III diastolic dysfunction. Mildly increased left atrial size. Trace tricuspid valve regurgitation. Estimated pulmonary artery peak systolic pressure 26 mmHg There is no pericardial effusion. There are no intracardiac masses. No similar previous studies are available for comparison -CTA no radiographic evidence of pulmonary embolism (2) Hypertension: Uncontrolled hypertension ; she has received hydralazine 5 mg IV, amlodipine 10 mg in the emergency room. Patient is tachycardic with heart rate ranging between 10 3-1 27. Will start metoprolol 25 mg p.o. twice daily. Qualifiers: Hypertension type: primary hypertension Qualified Code(s): I10 - Essential (primary) hypertension (3) Uncontrolled diabetes mellitus: HbA1c at 10.5. Patient reports recently being on Ozempic which has since been discontinued. Insulin sliding scale for now. Estimate 24-hour requirements and then switch to Lantus and sliding scale. Discussed with the patient that with A1c of 10.5 patient may need at least short-term insulin at discharge. She is agreeable for the same. Qualifiers: Diabetes mellitus type: type 1 Glycemic state: with hyperglycemia Qualified Code(s): E10.65 - Type 1 diabetes mellitus with hyperglycemia (4) Hypertriglyceridemia: -Triglycerides over a thousand -Start IV fluids - Continue atorvastatin 40 mg daily -Add fenofibrate 145 mg daily -Blood sugar control as above -Will need to follow-up with primary care provider in the next 4 to 6 weeks for recheck triglyceride level -Needs tight control measures Plan DVT prophylaxis: Currently on full dose Lovenox for NSTEMI Full code Attestations 2 Medical Necessity Statement*: Requires hospitalization for NSTEMI, chest pain, proceeding with cardiac catheterization tomorrow with hypertriglyceridemia requiring IV fluids, blood sugar control Diagnoses NSTEMI (non-ST elevated myocardial infarction) I21.4 Primary hypertension I10 Hypertension type: primary hypertension Uncontrolled type 1 diabetes mellitus with hyperglycemia E10.65 Diabetes mellitus type: type 1 Glycemic state: with hyperglycemia Hypertriglyceridemia E78.1
--- NOTE | 2024-05-11 18:32 | PC.NURSE ---
Pt had one episode of sharp chest pain 6/10 pain. Nitro and EKG ordered.
[2024-05-11] MEDS: atorvastatin 40 mg Tablet 80 MG PO (20:36)
[2024-05-11] MEDS: pantoprazole 40 mg SDV IVP (20:36)
[2024-05-11 21:19] LABS: Glucose Point of Care 252 mg/dL (70-110)
[2024-05-12] VITALS (16 sets, daily range): BP systolic 115–152; BP diastolic 68–105; PULSE 73–96; RESP 14–20; TEMP 36.8–37.1; O2SAT 94–99; BMI 40.9
[2024-05-12] MEDS: sodium chloride 0.9% 1,000 ML 75 ML IV ×2 (02:04→14:47)
[2024-05-12 06:02] LABS: Basophils # 0.1 10^3/uL (0.0-0.1); Basophils % 0.8 %; Eosinophils # 0.2 10^3/uL (0.0-0.8); Eosinophils % 2.4 %; Hematocrit 47.4 % (36-47); Lymphocytes # 3.2 10^3/uL (0.8-4.8); Mean Corpuscular HGB Conc 32.9 g/dL (30-55); Mean Corpuscular Hemoglobin 29.2 pg (27-33); Mean Corpuscular Volume 88.6 fl (85-98); Mean Platelet Volume 9.9 fL (7.4-10.4); Monocytes # 0.6 10^3/uL (0.2-0.9); Monocytes % 8.5 %; Neutrophils # 3.34 10^3/uL (1.8-7.7); Neutrophils % 44.9 %; Nucleated Red Blood Cells % 0 %; Platelet Count 256 10^3/cmm (157-399); Red Blood Count 5.35 10^6/uL (3.85-5.65); Red Cell Distribution Width 12.5 % (12.1-15.1); White Blood Count 7.44 10^3/uL (3.29-11.43)
[2024-05-12 06:22] LABS: Blood Urea Nitrogen 9 mg/dL (6-20); Calcium 8.5 mg/dL (8.5-10.5); Carbon Dioxide 24 mmol/L (22-29); Chloride 98 mmol/L (98-107); Creatinine Clr Calc Pharmacy 169.8506; Glomerular Filtration Rate 116.6 mL/min (90-130); Glucose 261 mg/dL (65-115); Osmolality Calculated 284 mOsm/kg (285-295); Sodium 133 mmol/L (136-145)
[2024-05-12 06:35] LABS: Anion Gap 15.1 (5-19); Potassium 4.1 mmol/L (3.5-5.1)
--- NOTE | 2024-05-12 07:58 | PC.NURSE ---
Verified with Dr. Esqueda morning medications, verbal order to hold on Lovenox dose, Give other morning medications.
[2024-05-12] MEDS: clopidogrel 75 mg Tablet PO (08:44)
[2024-05-12] MEDS: aspirin 81 mg Chew Tablet PO (08:44)
[2024-05-12] MEDS: losartan 50 mg Tablet PO (08:44)
[2024-05-12] MEDS: fenofibrate 145 mg Tablet PO (08:44)
[2024-05-12] MEDS: metoprolol tartrate 25 mg Tablet PO ×2 (08:45→20:13)
[2024-05-12] MEDS: nitroglycerin 0.4 mg sublingual Tablet SUBLINGUAL ×2 (09:13→10:45)
--- NOTE | 2024-05-12 09:18 | ECG_ITS ---
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 Measurements Intervals [place] Rate: 91 P: 133 [place]: 136 QRS: 9 QRSD: 89 T: 15 QT: 360 QTc: 444 Interpretive Statements SINUS RHYTHM POSSIBLE LEFT ATRIAL ENLARGEMENT [-0.1mV P-WAVE IN V1/V2] LOW QRS VOLTAGE IN EXTREMITY LEADS [QRS DEFLECTION < 0.5 mV IN LIMB LEADS] POSSIBLE ANTERIOR MYOCARDIAL INFARCTION , OF INDETERMINATE AGE [30 ms Q WAVE IN V3/V4, OR R < 0.2 mV IN V4] Compared to ECG 05/11/2024 16:31:13 Low QRS voltage now present Ventricular premature complex(es) no longer present Myocardial infarct finding still present Electronically Signed On 05-13-2024 01:20:35 CDT by Kailash Esqueda M.D. [id number]
--- NOTE | 2024-05-12 09:43 | PM.PN ---
Subjective Subjective: Patient had an episode of chest pain lasting for 25 minutes or so this morning. The pain was mild to begin with. Then started getting worse to become 7/10. She was given 1 sublingual nitro. It relieved the pain. The EKG did not reveal any new changes. No new arrhythmias on the monitor. Medications: Medication Review Details: Current Medications Acetaminophen (Acetaminophen 325 Mg Tablet) 650 mg PO Q6H PRN PRN Reason: Mild/Mod Pain Or Temp >/= 101 Last Admin: 05/10/24 21:19 Dose: 650 mg Aspirin (Aspirin 81 Mg Chew Tablet) 81 mg PO DAILY KRISTEL Last Admin: 05/12/24 08:44 Dose: 81 mg Atorvastatin Calcium (Atorvastatin 40 Mg Tablet) 80 mg PO BEDTIME KRISTEL Last Admin: 05/11/24 20:36 Dose: 80 mg Bisacodyl (Bisacodyl 5 Mg Tablet) 10 mg PO DAILY PRN; Protocol PRN Reason: Constipation (see protocol) Clopidogrel Bisulfate (Clopidogrel 75 Mg Tablet) 75 mg PO DAILY [facility] Last Admin: 05/12/24 08:44 Dose: 75 mg Enoxaparin Sodium (Enoxaparin 100 Mg/Ml Syringe) 110 mg 1 mg/kg (110 mg) SUBCUT Q12H KRISTEL Last Admin: 05/12/24 07:58 Dose: Not Given Fenofibrate (Fenofibrate 145 Mg Tablet) 145 mg PO DAILY [facility] Last Admin: 05/12/24 08:44 Dose: 145 mg Glucagon (Glucagon 1 Mg/Ml Kit 1 Ml) 1 mg IM ONCE PRN; Protocol PRN Reason: Adult Acute Hypoglycemia Nursing Prot. Dextrose (D5w) 500 mls @ 0 mls/hr IV ONCE PRN; Protocol PRN Reason: Adult Acute Hypoglycemia Prot Dextrose (D10w) 125 mls @ 750 mls/hr IV PRN PRN; Protocol PRN Reason: Adult Acute Hypoglycemia Nursing Protocol Dextrose (D10w) 250 mls @ 1,000 mls/hr IV PRN PRN; Protocol PRN Reason: Adult Acute Hypoglycemia Nursing Protocol Sodium Chloride (Sodium Chloride 0.9%) 1,000 mls @ 75 mls/hr IV .[id number] [facility] Last Admin: 05/12/24 02:04 Dose: 75 mls/hr Insulin Human Lispro (Insulin Lispro 100 Unit/1 Ml) 0 unit SUBCUT WM&BEDTIME KRISTEL; Protocol Last Admin: 05/11/24 20:37 Dose: 8 unit Lactulose (Lactulose Oral Liq 20 Gm/30 Ml Udc) 10 gm PO DAILY PRN; Protocol PRN Reason: Constipation (see protocol) Losartan Potassium (Losartan 50 Mg Tablet) 50 mg PO DAILY [facility] Last Admin: 05/12/24 08:44 Dose: 50 mg Magnesium Hydroxide (Magnesium Hydroxide 30 Ml Udc) 30 ml PO DAILY PRN; Protocol PRN Reason: Constipation (see protocol) Metoprolol Tartrate (Metoprolol Tartrate 25 Mg Tablet) 25 mg PO BID@0900,2100 [facility] Last Admin: 05/12/24 08:45 Dose: 25 mg Morphine Sulfate (Morphine 4 Mg/Ml Sdv 1 Ml) 2 mg IVP Q4H PRN PRN Reason: SEVERE PAIN Ondansetron HCl (Ondansetron 2 Mg/Ml Sdv 2 Ml) 4 mg IVP Q8H PRN PRN Reason: vomiting, or N/V if npo Pantoprazole Sodium (Pantoprazole 40 Mg Sdv) 40 mg IVP Q24H [facility] Last Admin: 05/11/24 20:36 Dose: 40 mg Vitals/I&O/Wt Last Vital Signs Temp 98.8 F 05/12/24 08:00 Pulse 96 05/12/24 08:00 Resp 16 05/12/24 08:00 BP 152/92 05/12/24 08:44 Pulse Ox 97 05/12/24 08:00 O2 Del Method Room Air 05/12/24 08:00 05/11/24 05/12/24 05/12/24 22:59 06:59 14:59 Intake Total 250 / 610 987.5 / 1597.5 0 / 0 Output Total 3000 / 3000 900 / 3900 Balance -2750 / -2390 87.5 / -2302.5 0 / 0 Weight last 48 hrs Weight 2462 lb 9.013 oz Weight 248 lb Weight 248 lb Weight 248 lb 0.321 oz Weight 243 lb Physical Exam Narrative: GENERAL: The patient is alert and oriented times three. Not in any acute distress. Moderately obese HEENT: No significant pallor, icterus or lymphadenopathy.Oral cavity: There are no mucous membrane lesions. NECK: Trachea appears to be central. No masses noted. No JVD or thyromegaly appreciated. RESPIRATORY: Chest is symmetrical. No intercostals muscle retraction or any accessory muscle activation. There is no chest wall tenderness. Breath sounds are heard bilaterally. No rales or rhonchi heard. No evidence of any consolidation. BREASTS: Deferred. HEART: The heart sounds are normal. No S3 or S4. No significant murmurs. No pericardial rub ABDOMEN: No vessel pulsations or distention. No tenderness. No organomegaly appreciated. Bowel sounds are normally heard. : Deferred. RECTAL: Deferred. LYMPHATIC: No lymphadenopathy noted in the neck. EXTREMITIES: No edema or cyanosis. No clubbing. MUSCULOSKELETAL: No acute joint deformities or swelling SKIN: There are no significant rashes or ecchymosis NEUROPSYCHIATRIC: The patient is alert and oriented x3. Appears to be in a good mood. No tremors or rigidity noted. Data 05/12/24 05:41 05/12/24 05:41 Other Labs: Laboratory Last Values WBC 7.44 10^3/uL (3.29-11.43) 05/12/24 05:41 RBC 5.35 10^6/uL (3.85-5.65) 05/12/24 05:41 Hgb 15.60 g/dL (11.27-16.99) 05/12/24 05:41 Hct 47.4 % (36-47) H 05/12/24 05:41 MCV 88.6 fl (85-98) 05/12/24 05:41 MCH 29.2 pg (27-33) 05/12/24 05:41 MCHC 32.9 g/dL (30-55) 05/12/24 05:41 RDW 12.5 % (12.1-15.1) 05/12/24 05:41 Plt Count 256 10^3/cmm (157-399) 05/12/24 05:41 MPV 9.9 fL (7.4-10.4) 05/12/24 05:41 Neut % (Auto) 44.9 % 05/12/24 05:41 Lymph % (Auto) 43.0 % 05/12/24 05:41 [place] % (Auto) 8.5 % 05/12/24 05:41 Eos % (Auto) 2.4 % 05/12/24 05:41 Baso % (Auto) 0.8 % 05/12/24 05:41 Neut # (Auto) 3.34 10^3/uL (1.8-7.7) 05/12/24 05:41 Lymph # (Auto) 3.2 10^3/uL (0.8-4.8) 05/12/24 05:41 [place] # (Auto) 0.6 10^3/uL (0.2-0.9) 05/12/24 05:41 Eos # (Auto) 0.2 10^3/uL (0.0-0.8) 05/12/24 05:41 Baso # (Auto) 0.1 10^3/uL (0.0-0.1) 05/12/24 05:41 Nucleated RBC % (auto) 0 % 05/12/24 05:41 Nucleated RBCs # 0.0 /100WBC 05/12/24 05:41 D-Dimer 0.31 ug/mLFEU (0-0.59) 05/10/24 15:24 Sodium 133 mmol/L (136-145) L 05/12/24 05:41 Potassium 4.1 mmol/L (3.5-5.1) 05/12/24 05:41 Chloride 98 mmol/L (98-107) 05/12/24 05:41 Carbon Dioxide 24 mmol/L (22-29) 05/12/24 05:41 Anion Gap 15.1 (5-19) 05/12/24 05:41 BUN 9 mg/dL (6-20) 05/12/24 05:41 Creatinine 0.6 mg/dL (0.5-0.9) 05/12/24 05:41 GFR Calculation 116.6 mL/min (90-130) 05/12/24 05:41 Glucose 261 mg/dL (65-115) H 05/12/24 05:41 POC Glucose 252 mg/dL (70-110) H 05/11/24 20:31 Estimat Average Glucose 255 05/11/24 03:24 Hemoglobin A1c 10.5 % (4.0-6.0) H 05/11/24 03:24 Calculated Osmolality 284 mOsm/kg (285-295) L 05/12/24 05:41 Calcium 8.5 mg/dL (8.5-10.5) 05/12/24 05:41 Phosphorus 4.4 mg/dL (2.5-4.5) 05/11/24 03:24 Magnesium 2.1 mg/dL (1.7-2.3) 05/11/24 03:24 Iron 46 ug/dL (37-145) 05/10/24 18:20 TIBC 348 mcg/dl 05/10/24 18:20 % Saturation 13.2 % (20-50) L 05/10/24 18:20 Unsat Iron Binding 302 ug/dL (112-347) 05/10/24 18:20 Total Bilirubin 0.3 mg/dL (0.15-1.2) 05/11/24 03:24 AST 5 U/L (0-32) 05/11/24 03:24 ALT 27 U/L (0-33) 05/11/24 03:24 Alkaline Phosphatase 29 U/L (35-105) L 05/11/24 03:24 Troponin T 5th Gen ng/L 87 ng/L (0-10) H 05/11/24 16:51 Troponin T Baseline 36 ng/L (0-10) H 05/10/24 16:08 Troponin T 120 Minute 37.61 ng/L (0-10) H 05/10/24 18:20 Delta Troponin T 1.61 ABS# (0-10) 05/10/24 18:20 Troponin T Hi Sens 6Hr 52.77 ng/L (0-10) H 05/10/24 22:24 Troponin T Hi Sens 6Hr Delta 16.77 ng/L (0-12) H* 05/10/24 22:24 C-Reactive Protein 4.1 mg/L (0.0-4.9) 05/10/24 16:08 Total Protein 7.2 g/dL (6.6-8.7) 05/11/24 03:24 Albumin 3.9 g/dL (3.5-5.2) 05/11/24 03:24 Globulin 3.3 g/dL (1.3-4.6) 05/11/24 03:24 Triglycerides 1180 mg/dL (0-150) H 05/11/24 03:24 Cholesterol 268 mg/dL (0-200) H 05/11/24 03:24 LDL Cholesterol Direct 140 mg/dL (0-100) H 05/11/24 03:24 LDL Cholesterol, Calc Not Reportable 05/11/24 03:24 HDL Cholesterol 31 mg/dL (60-100) L 05/11/24 03:24 LDL/HDL Ratio Not Reportable 05/11/24 03:24 Cholesterol/HDL Ratio 8.65 mg/dL (0.0-4.40) H 05/11/24 03:24 Lipase 53 U/L (13-60) 05/11/24 03:24 Vitamin B12 358 pg/mL (232-1245) 05/10/24 18:20 Folate 16.4 ng/mL (4.8-37.3) 05/11/24 03:24 Procalcitonin 0.05 ng/mL (0-0.5) 05/10/24 16:08 TSH 1.55 uIU/mL (0.27-4.20) 05/10/24 18:20 HCG, Qual Negative (Negative) 05/11/24 03:24 Urine Color Yellow (Yellow) 05/10/24 22:59 Urine Appearance Clear (CLEAR) 05/10/24 22:59 Urine pH 6.5 (5-7) 05/10/24 22:59 Ur Specific [place] 1.040 (1.005-1.030) H 05/10/24 22:59 Urine Protein Negative (Negative) 05/10/24 22:59 Urine Glucose (UA) 3+ (Normal) H 05/10/24 22:59 Urine Ketones 2+ (Negative) H 05/10/24 22:59 Urine Blood 3+ (Negative) A 05/10/24 22:59 Urine Nitrate Negative (Negative) 05/10/24 22:59 Urine Bilirubin Negative (Negative) 05/10/24 22:59 Urine Urobilinogen 1.0 mg/dL (Negative) 05/10/24 22:59 Ur Leukocyte Esterase Negative (Negative) 05/10/24 22:59 Urine RBC 0-2 /hpf (0-2) 05/10/24 22:59 Urine WBC 0-5 /hpf (0-5) 05/10/24 22:59 Ur Squamous Epith Cells 0-5 /hpf (0-5) 05/10/24 22:59 Amorphous Sediment Not Reportable 05/10/24 22:59 Urine Bacteria None seen /hpf (NONE) 05/10/24 22:59 Hyaline Casts 0-4 /lpf H 05/10/24 22:59 Urine Opiates Screen Positive ng/mL (Negative) H 05/10/24 22:59 Ur Barbiturates Screen Negative ng/mL (Negative) 05/10/24 22:59 Ur Phencyclidine Scrn Negative ng/mL (Negative) 05/10/24 22:59 Ur Amphetamines Screen Negative ng/mL (Negative) 05/10/24 22:59 U Benzodiazepines Scrn Negative ng/mL (Negative) 05/10/24 22:59 Urine Cocaine Screen Negative ng/mL (Negative) 05/10/24 22:59 U Marijuana (THC) Screen Negative ng/mL (Negative) 05/10/24 22:59 Adenovirus (PCR) Not detected (NOT DETECT) 05/10/24 21:15 C. pneumoniae DNA (PCR) Not detected (NOT DETECT) 05/10/24 21:15 Coronavirus 229E (PCR) Not detected (NOT DETECT) 05/10/24 21:15 Human Metapneumovir PCR Not detected (NOT DETECT) 05/10/24 21:15 Influenza A (H1) PCR Not detected (NOT DETECT) 05/10/24 21:15 Influ A (H1/09) PCR Not detected (NOT DETECT) 05/10/24 21:15 Influenza A (H3) PCR Not detected (NOT DETECT) 05/10/24 21:15 Influenza Type A (PCR) Not detected (NOT DETECT) 05/10/24 21:15 Influenza Type B (PCR) Not detected (NOT DETECT) 05/10/24 21:15 M. pneumoniae (PCR) Not detected (NOT DETECT) 05/10/24 21:15 Parainfluenza 1 (PCR) Not detected (NOT DETECT) 05/10/24 21:15 Parainfluenza 2 (PCR) Not detected (NOT DETECT) 05/10/24 21:15 Parainfluenza 3 (PCR) Not detected (NOT DETECT) 05/10/24 21:15 Parainfluenza 4 (PCR) Not detected (NOT DETECT) 05/10/24 21:15 RSV Type A (PCR) Not detected (NOT DETECT) 05/10/24 21:15 RSV Type B (PCR) Not detected (NOT DETECT) 05/10/24 21:15 Entero/Rhino (PCR) Detected (NOT DETECT) A 05/10/24 21:15 SARS-CoV-2 (PCR) Not detected (NOT DETECT) 05/10/24 21:15 A&P Assessment and plan (1) NSTEMI (non-ST elevated myocardial infarction): The patient's clinical features are suggestive of an unstable angina complicated with a non-ST elevation myocardial infarction. Hemodynamically she seems to be stable. EKG is unremarkable. The echocardiogram did not reveal any significant wall motion normalities. In view of the patient's ongoing episodes of chest pain, for further evaluation of her coronary status, she requires a cardiac catheterization. This was discussed with the patient in detail. The risk of bleeding, hematoma, vascular injury, myocardial infarction, myocardial perforation, malignant cardiac arrhythmias ,CVA, renal failure and other concomitant complications were explained in detail. Patient understood this well and consented to proceed. (2) Hypertension: Blood pressure is minimally elevated. May continue on the lisinopril and beta-socrates. Qualifiers: Hypertension type: primary hypertension Qualified Code(s): I10 - Essential (primary) hypertension (3) Uncontrolled diabetes mellitus: Patient's diabetes is uncontrolled. Aggressive management be appropriate. Qualifiers: Diabetes mellitus type: type 1 Glycemic state: with hyperglycemia Qualified Code(s): E10.65 - Type 1 diabetes mellitus with hyperglycemia (4) Dyslipidemia: Apparently the patient had been treated for any dyslipidemia. High-dose statin would be appropriate. Her triglyceride also Significant elevated. The dose of the Lipitor was increased to 80 mg p.o. daily. She seems to be tolerating the medication so far well (5) Premature ventricular contractions: Could be related to ischemia. Currently seems to be asymptomatic. Plan Patient may be continue on the current medications. In view of the ongoing symptoms, we may go ahead and do the cardiac catheterization as early as possible. Because of the scheduling conflict, I requested my colleague Dr. Mccann to do the procedure, if possible, this morning. Patient was informed about this. Based on the clinical progress and the results of the above, further recommendations will be made. Attestations Medical Necessity Statement*: Patient requires continued hospital stay for close monitoring and further management Coding Level of Care Code 07170 Diagnoses NSTEMI (non-ST elevated myocardial infarction) I21.4 Primary hypertension I10 Hypertension type: primary hypertension Uncontrolled type 1 diabetes mellitus with hyperglycemia E10.65 Diabetes mellitus type: type 1 Glycemic state: with hyperglycemia Dyslipidemia E78.5 Premature ventricular contractions I49.3
[2024-05-12 11:16] LABS: Glucose Point of Care 239 mg/dL (70-110)
--- NOTE | 2024-05-12 12:14 | W.PM.OPSUD ---
Surgery/Procedure H&P Update DATE OF PROCEDURE: May 12, 2024 DATE H&P PERFORMED: 05/11/24 H&P UPDATE INFORMATION: I have reviewed H&P completed within last 30 days, I have examined patient prior to procedure and No changes to prior documentation PREOP DIAGNOSIS: Unstable angina/ NSTEMI PRIMARY INDICATION FOR PROCEDURE: Unstable angina/ NSTEMI PLANNED PROCEDURE: Left heart cath with possible PCI PATIENT REASSESSED PRIOR TO SEDATION, WITH NO CHANGE NOTED: Yes PHYSICAL EXAM: alert, oriented x 3, clear to auscultation bilaterally and regular rate & rhythm AIRWAY EVAL/ANESTHESIA PLAN: normal airway, ASA III, Local Anesthesia, Risks, benefits & alternatives of sedation and/or procedure discussed and Patient agrees to continue as planned ADDITIONAL INFORMATION: Moderate sedation
[2024-05-12] MEDS: morphine 4 mg/mL SDV 1 mL 2 MG IVP (15:30)
--- NOTE | 2024-05-12 16:03 | PM.MISC ---
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 Patent left main artery, RCA and LAD. Dual antiplatelet therapy with aspirin and plavix for atleast 1 year High intensity statin therapy Risk factor modification
--- NOTE | 2024-05-12 16:29 | P.PN_ITS ---
Subjective 2 Subjective: Was seen this morning, she does report chest pain with exertion awaiting coronary angiography today Vitals/I&O/Wt Last Vital Signs Temp 98.8 F 05/12/24 08:00 Pulse 82 05/12/24 16:00 Resp 14 05/12/24 16:00 BP 145/92 05/12/24 16:00 Pulse Ox 97 05/12/24 16:00 O2 Del Method Room Air 05/12/24 16:00 05/12/24 05/12/24 05/12/24 06:59 14:59 22:59 Intake Total 987.5 / 1597.5 953.75 / 953.75 Output Total 900 / 3900 Balance 87.5 / -2302.5 953.75 / 953.75 Weight last 48 hrs Weight 111.584 kg Weight 1117 kg Weight 112.491 kg Weight 112.491 kg Weight 112.5 kg Physical Exam 2 Const: COMMON NORMALS: no acute distress and patient oriented x3 Resp: COMMON NORMALS: normal respiratory effort, No retractions, No use of accessory muscles and clear to auscultation bilaterally AUSCULTATION: clear to auscultation bilaterally Cardio: COMMON NORMALS: regular rate, regular rhythm, S1 normal heart sound present and S2 normal heart sound present RATE: regular rate RHYTHM: r egular rhythm HEART SOUNDS: S1 normal heart sound present and S2 normal heart sound present GI: COMMON NORMALS: Normal to inspection, nondistended, normoactive bowel sounds present and non-tender Extremity: COMMON NORMALS: no pedal edema Neuro: COMMON NORMALS: patient oriented x3 Psych: COMMON NORMALS: mental status grossly normal Data 05/12/24 05:41 05/12/24 05:41 A&P Assessment and plan (1) NSTEMI (non-ST elevated myocardial infarction): 33-year-old lady with several cardiovascular risk factors including hypertension, diabetes presenting to the emergency room with recurrent chest pain. Troponin series with 36---> 37--> 52 with a delta of 16 at 6 hours. Recent troponin few days ago at 12. EKG without acute ST-T wave changes, few VPCs encountered. Given the uptrending troponin and ongoing chest discomfort, concern for NSTEMI given her several cardiovascular risk factors Admit to CSU Continuous telemetry monitoring Aspirin 325 mg now stat followed by aspirin 81 mg p.o. daily Started on Plavix 75 mg Start atorvastatin 40 mg p.o. daily Lovenox 1 mg/kg subcutaneously every 12 hours Cardiology consulted Echocardiogram CONCLUSIONS Normal left ventricular size and systolic function, EF 57%.no regional wall motion abnormalities. Type III diastolic dysfunction. Mildly increased left atrial size. Trace tricuspid valve regurgitation. Estimated pulmonary artery peak systolic pressure 26 mmHg There is no pericardial effusion. There are no intracardiac masses. No similar previous studies are available for comparison -CTA no radiographic evidence of pulmonary embolism (2) Hypertension: Uncontrolled hypertension ; she has received hydralazine 5 mg IV, amlodipine 10 mg in the emergency room. Patient is tachycardic with heart rate ranging between 10 3-1 27. Will start metoprolol 25 mg p.o. twice daily. Qualifiers: Hypertension type: primary hypertension Qualified Code(s): I10 - Essential (primary) hypertension (3) Uncontrolled diabetes mellitus: HbA1c at 10.5. Patient reports recently being on Ozempic which has since been discontinued. Insulin sliding scale for now. Estimate 24-hour requirements and then switch to Lantus and sliding scale. Discussed with the patient that with A1c of 10.5 patient may need at least short-term insulin at discharge. She is agreeable for the same. Qualifiers: Diabetes mellitus type: type 1 Glycemic state: with hyperglycemia Qualified Code(s): E10.65 - Type 1 diabetes mellitus with hyperglycemia (4) Hypertriglyceridemia: -Triglycerides over a thousand -Start IV fluids - Continue atorvastatin 40 mg daily -Add fenofibrate 145 mg daily -Blood sugar control as above -Will need to follow-up with primary care provider in the next 4 to 6 weeks for recheck triglyceride level -Needs tight control measures Plan DVT prophylaxis: Currently on full dose Lovenox for NSTEMI Full code Plan on cardiac catheterization today Attestations 2 Medical Necessity Statement*: Patient requires hospitalization for NSTEMI, cardiac catheterization, chest pain Diagnoses NSTEMI (non-ST elevated myocardial infarction) I21.4 Primary hypertension I10 Hypertension type: primary hypertension Uncontrolled type 1 diabetes mellitus with hyperglycemia E10.65 Diabetes mellitus type: type 1 Glycemic state: with hyperglycemia Hypertriglyceridemia E78.1
[2024-05-12 17:42] LABS: Glucose Point of Care 219 mg/dL (70-110)
[2024-05-12] MEDS: insulin lispro 100 unit/1 mL SUBCUT ×2 (18:14→20:13)
--- NOTE | 2024-05-12 19:00 | PC.NURSE ---
TR band removal: Patient reports tenderness of radial wrist, pulses present radial and ulnar, no hemotoma, no further bleeding. Dressing applied, dry and intact at the time of this note. Femoral dressing dry and intact, no hemotoma, pedal pulses present.
[2024-05-12 20:02] LABS: Glucose Point of Care 304 mg/dL (70-110)
[2024-05-12] MEDS: pantoprazole 40 mg SDV IVP (20:13)
[2024-05-12] MEDS: atorvastatin 40 mg Tablet 80 MG PO (20:13)
[2024-05-13] VITALS (14 sets, daily range): BP systolic 119–144; BP diastolic 75–99; PULSE 71–99; RESP 9–21; TEMP 36.9; O2SAT 94–98
[2024-05-13] MEDS: sodium chloride 0.9% 1,000 ML 75 ML IV (03:50)
[2024-05-13 05:22] LABS: Basophils % 0.5 %; Eosinophils # 0.1 10^3/uL (0.0-0.8); Eosinophils % 1.7 %; Lymphocytes # 1.9 10^3/uL (0.8-4.8); Lymphocytes % 24.9 %; Mean Corpuscular HGB Conc 32.1 g/dL (30-55); Mean Corpuscular Hemoglobin 28.7 pg (27-33); Mean Corpuscular Volume 89.2 fl (85-98); Mean Platelet Volume 9.7 fL (7.4-10.4); Monocytes # 0.7 10^3/uL (0.2-0.9); Monocytes % 8.5 %; Neutrophils # 4.97 10^3/uL (1.8-7.7); Nucleated Red Blood Cells % 0 %; Platelet Count 218 10^3/cmm (157-399); Red Blood Count 5.27 10^6/uL (3.85-5.65); Red Cell Distribution Width 12.6 % (12.1-15.1); White Blood Count 7.76 10^3/uL (3.29-11.43)
[2024-05-13 05:50] LABS: Anion Gap 15.4 (5-19); Blood Urea Nitrogen 8 mg/dL (6-20); Calcium 8.4 mg/dL (8.5-10.5); Carbon Dioxide 22 mmol/L (22-29); Chloride 101 mmol/L (98-107); Glomerular Filtration Rate 116.6 mL/min (90-130); Glucose 224 mg/dL (65-115); Osmolality Calculated 283 mOsm/kg (285-295); Potassium 4.4 mmol/L (3.5-5.1); Sodium 134 mmol/L (136-145)
[2024-05-13 07:15] LABS: Glucose Point of Care 211 mg/dL (70-110)
[2024-05-13] MEDS: insulin lispro 100 unit/1 mL SUBCUT ×2 (08:07→12:10)
[2024-05-13] MEDS: aspirin 81 mg Chew Tablet PO (08:08)
[2024-05-13] MEDS: fenofibrate 145 mg Tablet PO (08:08)
[2024-05-13] MEDS: clopidogrel 75 mg Tablet PO (08:08)
[2024-05-13] MEDS: metoprolol tartrate 25 mg Tablet PO (08:08)
[2024-05-13] MEDS: losartan 50 mg Tablet PO (08:08)
--- NOTE | 2024-05-13 10:47 | P.DS_ITS ---
Discharge Providers Date of Admission: 05/11/24 05:25 Date of Discharge: May 13, 2024 Attending Provider at Admission: Dominic Vickers MD Attending Provider at Discharge: Zan Perez MD Primary Care Provider: MACK Bolaños Diagnoses at Discharge Discharge Diagnosis (1) NSTEMI (non-ST elevated myocardial infarction): Status: Acute (2) Hypertension: Status: Acute Qualifiers: Hypertension type: primary hypertension Qualified Code(s): I10 - Essential (primary) hypertension (3) Uncontrolled diabetes mellitus: Status: Acute Qualifiers: Diabetes mellitus type: type 1 Glycemic state: with hyperglycemia Qualified Code(s): E10.65 - Type 1 diabetes mellitus with hyperglycemia (4) Hypertriglyceridemia: Status: Acute Reason for Visit Reason for Visit: chest pain Hospital Course Hospital Course This is a 33-year-old female with a past medical history of type 2 diabetes mellitus, diagnosed in her 20s, hypertension, who presents [facility] for complaints of chest pain Patient was admitted to [facility], for chest pain, NSTEMI, cardiology was consulted, echocardiogram showed EF of 57%, managed on aspirin, statin, Plavix, therapeutic Lovenox, underwent coronary angiography found to have 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 Patient tolerated procedure well, will be discharged on aspirin, statin, Plavix, metoprolol, with a close follow-up with cardiology in a week. Emphasized the im portance of continuing aspirin and Plavix, the risk of stent closure and morbidity mortality associated if she stops taking these medications, monitor for side effect such as bloody and black stools, if so go to the emergency room. If any recurrent chest pain go to the emergency room. For her hypertension, discharged on losartan, metoprolol, with close follow-up with primary care provider for blood pressure check. Advised patient to check blood pressure twice daily recorded a blood pressure log, bring to primary care, follow-up with primary care in 1 week. Had extensive discussion with her about blood pressure control, morbidity mortality associated For her type 2 diabetes mellitus, A1c is 10.5, managed on insulin therapy as inpatient, on discharge given her CAD as above, we will discharge her on Jardiance for cardiovascular benefit, discharged on a NovoLog sliding scale, follow-up with primary care provider with blood pressure log, instructions as below. On discharge had extensive discussion with her about type 2 diabetes mellitus, morbidity and and mortality associate with poorly controlled type 2 diabetes mellitus, and association with CAD as above. Discussed weight loss strategies, blood sugar control, she voiced understanding, all questions answered For her obesity, we discussed weight loss strategies, diet control measures, she voiced understanding, all questions answered During hospitalization she was found to have hypertriglyceridemia, triglycerides over 1000, will discharge her on atorvastatin 40 mg daily, fenofibrate 145 mg daily. With treatment of her type 2 diabetes mellitus as above. Discussed morbidity and mortality associated with hypertriglyceridemia, will have to recheck her triglycerides in 4 to 6 weeks, discussed diet control measures, hand outs provided on discharge, she voiced understanding, all questions answered, agreed to proceed The patient has metabolic syndrome, given her CAD, hypertension, diabetes mellitus, obesity, hypertriglyceridemia, we will have her follow-up with Dr. Montilla as outpatient Lastly also had a detailed discussion with her about contraception, she has a Nexplanon in place, she is not breast-feeding, she is 9 months in the period. Discussed that she should continue a form of contraception, to decrease risk of , especially with her CAD as above. Did have a discussion with her that there is a small association with Nexplanon and hypercoagulable events, although I think that the cause of her cardiovascular event as above is likely from her poorly controlled type 2 diabetes mellitus, obesity, hypertriglyceridemia, metabolic syndrome. But nonetheless she should follow-up with Dr. Hinton as outpatient. Physical Exam Const: COMMON NORMALS: no acute distress and patient oriented x3 Resp: COMMON NORMALS: normal respiratory effort, No retractions, No use of accessory muscles and clear to auscultation bilaterally AUSCULTATION: clear to auscultation bilaterally Cardio: COMMON NORMALS: regular rate, regular rhythm, S1 normal heart sound present and S2 normal heart sound present RATE: regular rate RHYTHM: regular rhythm HEART SOUNDS: S1 normal heart sound present and S2 normal heart sound present GI: COMMON NORMALS: Normal to inspection, nondistended, normoactive bowel sounds present and non-tender Extremity: COMMON NORMALS: no calf tenderness and no pedal edema Neuro: COMMON NORMALS: patient oriented x3 Psych: COMMON NORMALS: mental status grossly normal Discharge Data Studies Completed and Pending Completed Studies During Hospitalization Category Date Time Status CT angio chest PE protcl [id number] Stat Cat Scan 05/10/24 17:27 Completed XR chest 1V portable [id number] Stat Exams 05/10/24 13:49 Completed CV. echo complete* [id number] Routine Ultrasound 05/11/24 06:00 Completed Pending at discharge Category Date Time Status [employer] request for service Routine Exams 05/12/24 09:20 Taken Basic Metabolic Panel AM LABS Lab 05/14/24 04:00 Ordered Complete Blood Count w/Auto AM LABS Lab 05/14/24 04:00 Ordered Radiology Impressions Chest X-Ray 05/10/24 13:49 IMPRESSION: No acute findings. Chest CTA 05/10/24 17:27 IMPRESSION: 1. No pulmonary emboli. 2. No focal consolidations. Laboratory Results WBC 7.76 10^3/uL (3.29-11.43) 05/13/24 05:12 RBC 5.27 10^6/uL (3.85-5.65) 05/13/24 05:12 Hgb 15.10 g/dL (11.27-16.99) 05/13/24 05:12 Hct 47.0 % (36-47) 05/13/24 05:12 MCV 89.2 fl (85-98) 05/13/24 05:12 MCH 28.7 pg (27-33) 05/13/24 05:12 MCHC 32.1 g/dL (30-55) 05/13/24 05:12 RDW 12.6 % (12.1-15.1) 05/13/24 05:12 Plt Count 218 10^3/cmm (157-399) 05/13/24 05:12 MPV 9.7 fL (7.4-10.4) 05/13/24 05:12 Neut % (Auto) 64.0 % 05/13/24 05:12 Lymph % (Auto) 24.9 % 05/13/24 05:12 [place] % (Auto) 8.5 % 05/13/24 05:12 Eos % (Auto) 1.7 % 05/13/24 05:12 Baso % (Auto) 0.5 % 05/13/24 05:12 Neut # (Auto) 4.97 10^3/uL (1.8-7.7) 05/13/24 05:12 Lymph # (Auto) 1.9 10^3/uL (0.8-4.8) 05/13/24 05:12 [place] # (Auto) 0.7 10^3/uL (0.2-0.9) 05/13/24 05:12 Eos # (Auto) 0.1 10^3/uL (0.0-0.8) 05/13/24 05:12 Baso # (Auto) 0.0 10^3/uL (0.0-0.1) 05/13/24 05:12 Nucleated RBC % (auto) 0 % 05/13/24 05:12 Nucleated RBCs # 0.0 /100WBC 05/13/24 05:12 D-Dimer 0.31 ug/mLFEU (0-0.59) 05/10/24 15:24 Sodium 134 mmol/L (136-145) L 05/13/24 05:12 Potassium 4.4 mmol/L (3.5-5.1) 05/13/24 05:12 Chloride 101 mmol/L (98-107) 05/13/24 05:12 Carbon Dioxide 22 mmol/L (22-29) 05/13/24 05:12 Anion Gap 15.4 (5-19) 05/13/24 05:12 BUN 8 mg/dL (6-20) 05/13/24 05:12 Creatinine 0.6 mg/dL (0.5-0.9) 05/13/24 05:12 GFR Calculation 116.6 mL/min (90-130) 05/13/24 05:12 Glucose 224 mg/dL (65-115) H 05/13/24 05:12 POC Glucose 211 mg/dL (70-110) H 05/13/24 07:11 Estimat Average Glucose 255 05/11/24 03:24 Hemoglobin A1c 10.5 % (4.0-6.0) H 05/11/24 03:24 Calculated Osmolality 283 mOsm/kg (285-295) L 05/13/24 05:12 Calcium 8.4 mg/dL (8.5-10.5) L 05/13/24 05:12 Phosphorus 4.4 mg/dL (2.5-4.5) 05/11/24 03:24 Magnesium 2.1 mg/dL (1.7-2.3) 05/11/24 03:24 Iron 46 ug/dL (37-145) 05/10/24 18:20 TIBC 348 mcg/dl 05/10/24 18:20 % Saturation 13.2 % (20-50) L 05/10/24 18:20 Unsat Iron Binding 302 ug/dL (112-347) 05/10/24 18:20 Total Bilirubin 0.3 mg/dL (0.15-1.2) 05/11/24 03:24 AST 5 U/L (0-32) 05/11/24 03:24 ALT 27 U/L (0-33) 05/11/24 03:24 Alkaline Phosphatase 29 U/L (35-105) L 05/11/24 03:24 Troponin T 5th Gen ng/L 87 ng/L (0-10) H 05/11/24 16:51 Troponin T Baseline 36 ng/L (0-10) H 05/10/24 16:08 Troponin T 120 Minute 37.61 ng/L (0-10) H 05/10/24 18:20 Delta Troponin T 1.61 ABS# (0-10) 05/10/24 18:20 Troponin T Hi Sens 6Hr 52.77 ng/L (0-10) H 05/10/24 22:24 Troponin T Hi Sens 6Hr Delta 16.77 ng/L (0-12) H* 05/10/24 22:24 C-Reactive Protein 4.1 mg/L (0.0-4.9) 05/10/24 16:08 Total Protein 7.2 g/dL (6.6-8.7) 05/11/24 03:24 Albumin 3.9 g/dL (3.5-5.2) 05/11/24 03:24 Globulin 3.3 g/dL (1.3-4.6) 05/11/24 03:24 Triglycerides 1180 mg/dL (0-150) H 05/11/24 03:24 Cholesterol 268 mg/dL (0-200) H 05/11/24 03:24 LDL Cholesterol Direct 140 mg/dL (0-100) H 05/11/24 03:24 LDL Cholesterol, Calc Not Reportable 05/11/24 03:24 HDL Cholesterol 31 mg/dL (60-100) L 05/11/24 03:24 LDL/HDL Ratio Not Reportable 05/11/24 03:24 Cholesterol/HDL Ratio 8.65 mg/dL (0.0-4.40) H 05/11/24 03:24 Lipase 53 U/L (13-60) 05/11/24 03:24 Vitamin B12 358 pg/mL (232-1245) 05/10/24 18:20 Folate 16.4 ng/mL (4.8-37.3) 05/11/24 03:24 Procalcitonin 0.05 ng/mL (0-0.5) 05/10/24 16:08 TSH 1.55 uIU/mL (0.27-4.20) 05/10/24 18:20 HCG, Qual Negative (Negative) 05/11/24 03:24 Urine Color Yellow (Yellow) 05/10/24 22:59 Urine Appearance Clear (CLEAR) 05/10/24 22:59 Urine pH 6.5 (5-7) 05/10/24 22:59 Ur Specific [place] 1.040 (1.005-1.030) H 05/10/24 22:59 Urine Protein Negative (Negative) 05/10/24 22:59 Urine Glucose (UA) 3+ (Normal) H 05/10/24 22:59 Urine Ketones 2+ (Negative) H 05/10/24 22:59 Urine Blood 3+ (Negative) A 05/10/24 22:59 Urine Nitrate Negative (Negative) 05/10/24 22:59 Urine Bilirubin Negative (Negative) 05/10/24 22:59 Urine Urobilinogen 1.0 mg/dL (Negative) 05/10/24 22:59 Ur Leukocyte Esterase Negative (Negative) 05/10/24 22:59 Urine RBC 0-2 /hpf (0-2) 05/10/24 22:59 Urine WBC 0-5 /hpf (0-5) 05/10/24 22:59 Ur Squamous Epith Cells 0-5 /hpf (0-5) 05/10/24 22:59 Amorphous Sediment Not Reportable 05/10/24 22:59 Urine Bacteria None seen /hpf (NONE) 05/10/24 22:59 Hyaline Casts 0-4 /lpf H 05/10/24 22:59 Urine Opiates Screen Positive ng/mL (Negative) H 05/10/24 22:59 Ur Barbiturates Screen Negative ng/mL (Negative) 05/10/24 22:59 Ur Phencyclidine Scrn Negative ng/mL (Negative) 05/10/24 22:59 Ur Amphetamines Screen Negative ng/mL (Negative) 05/10/24 22:59 U Benzodiazepines Scrn Negative ng/mL (Negative) 05/10/24 22:59 Urine Cocaine Screen Negative ng/mL (Negative) 05/10/24 22:59 U Marijuana (THC) Screen Negative ng/mL (Negative) 05/10/24 22:59 Adenovirus (PCR) Not detected (NOT DETECT) 05/10/24 21:15 C. pneumoniae DNA (PCR) Not detected (NOT DETECT) 05/10/24 21:15 Coronavirus 229E (PCR) Not detected (NOT DETECT) 05/10/24 21:15 Human Metapneumovir PCR Not detected (NOT DETECT) 05/10/24 21:15 Influenza A (H1) PCR Not detected (NOT DETECT) 05/10/24 21:15 Influ A (H1/09) PCR Not detected (NOT DETECT) 05/10/24 21:15 Influenza A (H3) PCR Not detected (NOT DETECT) 05/10/24 21:15 Influenza Type A (PCR) Not detected (NOT DETECT) 05/10/24 21:15 Influenza Type B (PCR) Not detected (NOT DETECT) 05/10/24 21:15 M. pneumoniae (PCR) Not detected (NOT DETECT) 05/10/24 21:15 Parainfluenza 1 (PCR) Not detected (NOT DETECT) 05/10/24 21:15 Parainfluenza 2 (PCR) Not detected (NOT DETECT) 05/10/24 21:15 Parainfluenza 3 (PCR) Not detected (NOT DETECT) 05/10/24 21:15 Parainfluenza 4 (PCR) Not detected (NOT DETECT) 05/10/24 21:15 RSV Type A (PCR) Not detected (NOT DETECT) 05/10/24 21:15 RSV Type B (PCR) Not detected (NOT DETECT) 05/10/24 21:15 Entero/Rhino (PCR) Detected (NOT DETECT) A 05/10/24 21:15 SARS-CoV-2 (PCR) Not detected (NOT DETECT) 05/10/24 21:15 Vitals Last Vital Signs Temp 98.4 F 10/08/24 04:00 Pulse 90 05/13/24 09:00 Resp 18 05/13/24 09:00 BP 144/90 05/13/24 09:00 Pulse Ox 97 05/13/24 09:00 O2 Del Method Room Air 05/13/24 09:00 Discharge Plan Discharge Patient Disposition: Home Condition: Stable Prescriptions: New losartan 50 mg Tablet 50 mg PO DAILY 30 Days Qty: 30 0RF atorvastatin 40 mg Tablet 80 mg PO BEDTIME 30 Days Qty: 30 0RF clopidogrel 75 mg Tablet 75 mg PO DAILY 30 Days Qty: 30 0RF nitroglycerin 0.4 mg Tablet, Sublingual 0.4 mg sublingual Q5M PRN (Reason: Chest Pain) 30 Days Qty: 30 0RF aspirin 81 mg Tablet,Chewable 81 mg PO DAILY 30 Days Qty: 30 0RF metoprolol tartrate 25 mg Tablet 25 mg PO BID@0900,2100 30 Days Qty: 30 0RF fenofibrate nanocrystallized 145 mg Tablet 145 mg PO DAILY 30 Days Qty: 30 0RF Jardiance 10 mg tablet 10 mg PO DAILY 30 Days Qty: 30 0RF insulin aspart U-100 [Novolog FlexPen U-100 Insulin] 100 unit/mL (3 mL) insulin pen See Rx Instructions .ROUTE .COMPLEX Qty: 15 0RF Rx Instructions: Inject, subcut, 3 times daily, after meals, based on sliding scale provided Continued (DME) OneTouch Verio test strips Strip See Rx Instructions .Route Qty: 500 0RF Rx Instructions: check bs at least 6 times/day (DME) lancets [OneTouch UltraSoft Lancets] Misc See Rx Instructions .Route Qty: 500 0RF Rx Instructions: to check bs at least 6 times/day (DME) pen needle, diabetic [Comfort EZ Pen [place]] 31 gauge x 3/16 needle See Rx Instructions .Route Qty: 100 2RF Rx Instructions: As directed (DME) FreeStyle Trini 2 [place] Misc See Rx Instructions .Route Qty: 1 0RF Rx Instructions: As directed (DME) FreeStyle Trini 2 Sensor Kit See Rx Instructions .Route Qty: 1 3RF Rx Instructions: As directed Nexplanon 68 mg Implant 1 implant SUBDERMAL .EVERY 3 YEARS Discharge Orders: Discharge Order (Routine); Ordered 05/13/24 Ordered By: Zan Perez Referrals: Kailash Esqueda MD [Physician] - 1 month Vicky Srivastava FNP [Primary Care Provider] - 05/15/24 1:00 pm Rashmi Tipton FNP [Nurse Practitioner] - 05/21/24 2:30 pm Discharge Diet: Cardiac Discharge Activity: Resume usual activity Patient Instructions: Aspirin (By mouth), Coronary Angioplasty (DC), Low Fat Diet (DC), Type 2 Diabetes in Adults: New Diagnosis (DC), Weight Management (DC), Metabolic Syndrome X (ED), Obesity (DC), Hyperlipidemia (DC), Mediterranean Diet (DC), What to Do if Your Blood Sugar is Low (DC), Diabetes and Nutrition (DC), Opioid Safety Activity Restrictions/Additional Instructions: -Please monitor your blood sugars closely -Monitor your blood sugars 3 times daily as after meals -Please record your blood sugars, and a blood sugar log -For your NovoLog -Please inject blood sugar after meals based on sliding scale provided -Do not inject insulin if you do not eat as hypoglycemia kills -This is a NovoLog sliding scale -Insulin sliding ?fingerstick? Insulin ?141-180?0 units/sq 181-220?2 units/sq ?221-260?4 units/sq ?261-300 6 units/sq ?301-350?8 units/sq ?351-400 10 units/sq ?401-450?12 units/sq >450? 14units/sq -If your blood sugar is greater than 500 go to the emergency room -If your blood sugar is less than 60 or at anytime you feel lightheaded or dizzy or diaphoretic or have chest palpitations check your blood sugar, and eat a hard candy or drink orange juice and go immediately to the emergency room -Remember hypoglycemia kills, so if his blood sugar is less than 60 we have to increase it by taking in a sugary meal such as a hard candy or orange juice and go to the emergency room -If you have any questions please call us where here to help -If you have recurrent chest pain please go to the emergency room -Please take aspirin and Plavix as prescribed do not stop taking these medications as they are keeping your stent open -If you develop bloody or black stools please go to the emergency room ? Please have your primary care provider recheck your hemoglobin in 1 week ? For your type 2 diabetes mellitus, your A1c is 10.9, please continue Jardiance, insulin therapy as above, recheck A1c in 3 months ? For your hypertriglyceridemia, overall thousand, please take a statin and fenofibrate as prescribed, diet control measures, as outlined as in the instruction manual as above, weight loss strategies -Have your primary care provider recheck your triglycerides in 4 to 6 weeks ? Discussed with your family medicine provider about trying Trulicity -Please follow with cardiology in 1 week Follow-up with Dr. Esqueda in 1 month ? See your primary care provider next week ? Dr. Montilla's office will reach out to you for an appointment for endocrinology follow-up -Please monitor blood pressure closely, will need to closely titrate your blood pressure medications Discharge Attestations Time Spent in Discharge Care*: greater than 30 min Quality Metrics Clinical Quality Measures [ Acute Myocardial Infaction { Clinical Trial Participant: No; Contraindication to aspirin: None; Aspirin prescribed; Contraindication to statin: None; Statin prescribed; Contraindication to PCI: None; PCI performed;}. No reported AMI, CVA or VTE this stay] Coding Level of Care Code 81894 Total time (in minutes) for Discharge: 45 Diagnoses NSTEMI (non-ST elevated myocardial infarction) I21.4 Primary hypertension I10 Hypertension type: primary hypertension Uncontrolled type 1 diabetes mellitus with hyperglycemia E10.65 Diabetes mellitus type: type 1 Glycemic state: with hyperglycemia Hypertriglyceridemia E78.1
[2024-05-13 10:55] LABS: Glucose Point of Care 245 mg/dL (70-110)
--- NOTE | 2024-05-13 13:20 | PM.PN ---
Subjective Subjective: The patient had the cardiac catheterization yesterday. She was found to have a high-grade lesion in the mid circumflex artery. She underwent PCI of this lesion by Dr. Mccann. She had an uneventful postprocedure course. Has no hematoma bleeding from the radial arterial fungicide. Medications: Medication Review Details: Current Medications Acetaminophen (Acetaminophen 325 Mg Tablet) 650 mg PO Q6H PRN PRN Reason: Mild/Mod Pain Or Temp >/= 101 Last Admin: 05/10/24 21:19 Dose: 650 mg Al Hydrox/Mg Hydrox/Simethicone (Gvpe-Leu-Ceclzlneb-Alistair 30 Ml Udc) 30 ml PO Q15M PRN PRN Reason: INDIGESTION Alprazolam (Alprazolam 0.5 Mg Tablet) 0.25 mg PO TID PRN PRN Reason: ANXIETY Aspirin (Aspirin 81 Mg Chew Tablet) 81 mg PO DAILY [facility] Last Admin: 05/13/24 08:08 Dose: 81 mg Atorvastatin Calcium (Atorvastatin 40 Mg Tablet) 80 mg PO BEDTIME KRISTEL Last Admin: 05/12/24 20:13 Dose: 80 mg Atropine Sulfate (Atropine 1 Mg/Ml Sdv 1 Ml) 0.5 mg IVP PRN PRN PRN Reason: Symptomatic bradycardia Bisacodyl (Bisacodyl 5 Mg Tablet) 10 mg PO DAILY PRN; Protocol PRN Reason: Constipation (see protocol) Clopidogrel Bisulfate (Clopidogrel 75 Mg Tablet) 75 mg PO DAILY [facility] Last Admin: 05/13/24 08:08 Dose: 75 mg Fenofibrate (Fenofibrate 145 Mg Tablet) 145 mg PO DAILY [facility] Last Admin: 05/13/24 08:08 Dose: 145 mg Glucagon (Glucagon 1 Mg/Ml Kit 1 Ml) 1 mg IM ONCE PRN; Protocol PRN Reason: Adult Acute Hypoglycemia Nursing Prot. Dextrose (D5w) 500 mls @ 0 mls/hr IV ONCE PRN; Protocol PRN Reason: Adult Acute Hypoglycemia Prot Dextrose (D10w) 125 mls @ 750 mls/hr IV PRN PRN; Protocol PRN Reason: Adult Acute Hypoglycemia Nursing Protocol Dextrose (D10w) 250 mls @ 1,000 mls/hr IV PRN PRN; Protocol PRN Reason: Adult Acute Hypoglycemia Nursing Protocol Insulin Human Lispro (Insulin Lispro 100 Unit/1 Ml) 0 unit SUBCUT WM&BEDTIME KRISTEL; Protocol Last Admin: 05/13/24 12:10 Dose: 8 unit Lactulose (Lactulose Oral Liq 20 Gm/30 Ml Udc) 10 gm PO DAILY PRN; Protocol PRN Reason: Constipation (see protocol) Losartan Potassium (Losartan 50 Mg Tablet) 50 mg PO DAILY [facility] Last Admin: 05/13/24 08:08 Dose: 50 mg Magnesium Hydroxide (Magnesium Hydroxide 30 Ml Udc) 30 ml PO DAILY PRN; Protocol PRN Reason: Constipation (see protocol) Metoprolol Tartrate (Metoprolol Tartrate 25 Mg Tablet) 25 mg PO BID@0900,2100 [facility] Last Admin: 05/13/24 08:08 Dose: 25 mg Morphine Sulfate (Morphine 4 Mg/Ml Sdv 1 Ml) 2 mg IVP Q4H PRN PRN Reason: SEVERE PAIN Last Admin: 05/12/24 15:30 Dose: 2 mg Naloxone HCl (Naloxone 0.4 Mg/Ml Sdv) 0.1 mg IVP Q2M PRN PRN Reason: RESPIRATORY RATE < 8/MIN Nitroglycerin (Nitroglycerin 0.4 Mg Sublingual Tablet) 0.4 mg SUBLINGUAL Q5M PRN PRN Reason: CHEST PAIN Last Admin: 05/12/24 10:45 Dose: 0.4 mg Ondansetron HCl (Ondansetron 2 Mg/Ml Sdv 2 Ml) 4 mg IVP Q8H PRN PRN Reason: vomiting, or N/V if npo Pantoprazole Sodium (Pantoprazole 40 Mg Sdv) 40 mg IVP Q24H [facility] Last Admin: 05/12/24 20:13 Dose: 40 mg Temazepam (Temazepam 15 Mg Capsule) 15 mg PO BEDTIME PRN PRN Reason: INSOMNIA Vitals/I&O/Wt Last Vital Signs Temp 98.4 F 05/13/24 04:00 Pulse 99 05/13/24 10:00 Resp 19 H 05/13/24 10:00 BP 140/95 05/13/24 12:00 Pulse Ox 98 05/13/24 10:00 O2 Del Method Room Air 05/13/24 10:00 05/12/24 05/13/24 05/13/24 22:59 06:59 14:59 Intake Total 472 / 1425.75 1078.75 / 2504.50 Output Total 800 / 800 Balance -328 / 625.75 1078.75 / 1704.50 Weight last 48 hrs Weight 253 lb 8.505 oz Weight 246 lb Weight 2462 lb 9.013 oz Physical Exam Narrative: GENERAL: The patient is alert and oriented times three. Not in any acute distress. Moderately obese HEENT: No significant pallor, icterus or lymphadenopathy.Oral cavity: There are no mucous membrane lesions. NECK: Trachea appears to be central. No masses noted. No JVD or thyromegaly appreciated. RESPIRATORY: Chest is symmetrical. No intercostals muscle retraction or any accessory muscle activation. There is no chest wall tenderness. Breath sounds are heard bilaterally. No rales or rhonchi heard. No evidence of any consolidation. BREASTS: Deferred. HEART: The heart sounds are normal. No S3 or S4. No significant murmurs. No pericardial rub ABDOMEN: No vessel pulsations or distention. No tenderness. No organomegaly appreciated. Bowel sounds are normally heard. : Deferred. RECTAL: Deferred. LYMPHATIC: No lymphadenopathy noted in the neck. EXTREMITIES: The right radial arterial puncture site has no hematoma bleeding MUSCULOSKELETAL: No acute joint deformities or swelling SKIN: There are no significant rashes or ecchymosis NEUROPSYCHIATRIC: The patient is alert and oriented x3. Appears to be in a good mood. No tremors or rigidity noted. Data 05/13/24 05:12 05/13/24 05:12 Other Labs: Laboratory Last Values WBC 7.76 10^3/uL (3.29-11.43) 05/13/24 05:12 RBC 5.27 10^6/uL (3.85-5.65) 05/13/24 05:12 Hgb 15.10 g/dL (11.27-16.99) 05/13/24 05:12 Hct 47.0 % (36-47) 05/13/24 05:12 MCV 89.2 fl (85-98) 05/13/24 05:12 MCH 28.7 pg (27-33) 05/13/24 05:12 MCHC 32.1 g/dL (30-55) 05/13/24 05:12 RDW 12.6 % (12.1-15.1) 05/13/24 05:12 Plt Count 218 10^3/cmm (157-399) 05/13/24 05:12 MPV 9.7 fL (7.4-10.4) 05/13/24 05:12 Neut % (Auto) 64.0 % 05/13/24 05:12 Lymph % (Auto) 24.9 % 05/13/24 05:12 [place] % (Auto) 8.5 % 05/13/24 05:12 Eos % (Auto) 1.7 % 05/13/24 05:12 Baso % (Auto) 0.5 % 05/13/24 05:12 Neut # (Auto) 4.97 10^3/uL (1.8-7.7) 05/13/24 05:12 Lymph # (Auto) 1.9 10^3/uL (0.8-4.8) 05/13/24 05:12 [place] # (Auto) 0.7 10^3/uL (0.2-0.9) 05/13/24 05:12 Eos # (Auto) 0.1 10^3/uL (0.0-0.8) 05/13/24 05:12 Baso # (Auto) 0.0 10^3/uL (0.0-0.1) 05/13/24 05:12 Nucleated RBC % (auto) 0 % 05/13/24 05:12 Nucleated RBCs # 0.0 /100WBC 05/13/24 05:12 D-Dimer 0.31 ug/mLFEU (0-0.59) 05/10/24 15:24 Sodium 134 mmol/L (136-145) L 05/13/24 05:12 Potassium 4.4 mmol/L (3.5-5.1) 05/13/24 05:12 Chloride 101 mmol/L (98-107) 05/13/24 05:12 Carbon Dioxide 22 mmol/L (22-29) 05/13/24 05:12 Anion Gap 15.4 (5-19) 05/13/24 05:12 BUN 8 mg/dL (6-20) 05/13/24 05:12 Creatinine 0.6 mg/dL (0.5-0.9) 05/13/24 05:12 GFR Calculation 116.6 mL/min (90-130) 05/13/24 05:12 Glucose 224 mg/dL (65-115) H 10/08/24 05:12 POC Glucose 245 mg/dL (70-110) H 05/13/24 10:53 Estimat Average Glucose 255 05/11/24 03:24 Hemoglobin A1c 10.5 % (4.0-6.0) H 05/11/24 03:24 Calculated Osmolality 283 mOsm/kg (285-295) L 05/13/24 05:12 Calcium 8.4 mg/dL (8.5-10.5) L 05/13/24 05:12 Phosphorus 4.4 mg/dL (2.5-4.5) 05/11/24 03:24 Magnesium 2.1 mg/dL (1.7-2.3) 05/11/24 03:24 Iron 46 ug/dL (37-145) 05/10/24 18:20 TIBC 348 mcg/dl 05/10/24 18:20 % Saturation 13.2 % (20-50) L 05/10/24 18:20 Unsat Iron Binding 302 ug/dL (112-347) 05/10/24 18:20 Total Bilirubin 0.3 mg/dL (0.15-1.2) 05/11/24 03:24 AST 5 U/L (0-32) 05/11/24 03:24 ALT 27 U/L (0-33) 05/11/24 03:24 Alkaline Phosphatase 29 U/L (35-105) L 05/11/24 03:24 Troponin T 5th Gen ng/L 87 ng/L (0-10) H 05/11/24 16:51 Troponin T Baseline 36 ng/L (0-10) H 05/10/24 16:08 Troponin T 120 Minute 37.61 ng/L (0-10) H 05/10/24 18:20 Delta Troponin T 1.61 ABS# (0-10) 05/10/24 18:20 Troponin T Hi Sens 6Hr 52.77 ng/L (0-10) H 05/10/24 22:24 Troponin T Hi Sens 6Hr Delta 16.77 ng/L (0-12) H* 05/10/24 22:24 C-Reactive Protein 4.1 mg/L (0.0-4.9) 05/10/24 16:08 Total Protein 7.2 g/dL (6.6-8.7) 05/11/24 03:24 Albumin 3.9 g/dL (3.5-5.2) 05/11/24 03:24 Globulin 3.3 g/dL (1.3-4.6) 05/11/24 03:24 Triglycerides 1180 mg/dL (0-150) H 05/11/24 03:24 Cholesterol 268 mg/dL (0-200) H 05/11/24 03:24 LDL Cholesterol Direct 140 mg/dL (0-100) H 05/11/24 03:24 LDL Cholesterol, Calc Not Reportable 05/11/24 03:24 HDL Cholesterol 31 mg/dL (60-100) L 05/11/24 03:24 LDL/HDL Ratio Not Reportable 05/11/24 03:24 Cholesterol/HDL Ratio 8.65 mg/dL (0.0-4.40) H 05/11/24 03:24 Lipase 53 U/L (13-60) 05/11/24 03:24 Vitamin B12 358 pg/mL (232-1245) 05/10/24 18:20 Folate 16.4 ng/mL (4.8-37.3) 05/11/24 03:24 Procalcitonin 0.05 ng/mL (0-0.5) 05/10/24 16:08 TSH 1.55 uIU/mL (0.27-4.20) 05/10/24 18:20 HCG, Qual Negative (Negative) 05/11/24 03:24 Urine Color Yellow (Yellow) 05/10/24 22:59 Urine Appearance Clear (CLEAR) 05/10/24 22:59 Urine pH 6.5 (5-7) 05/10/24 22:59 Ur Specific [place] 1.040 (1.005-1.030) H 05/10/24 22:59 Urine Protein Negative (Negative) 05/10/24 22:59 Urine Glucose (UA) 3+ (Normal) H 05/10/24 22:59 Urine Ketones 2+ (Negative) H 05/10/24 22:59 Urine Blood 3+ (Negative) A 05/10/24 22:59 Urine Nitrate Negative (Negative) 05/10/24 22:59 Urine Bilirubin Negative (Negative) 05/10/24 22:59 Urine Urobilinogen 1.0 mg/dL (Negative) 05/10/24 22:59 Ur Leukocyte Esterase Negative (Negative) 05/10/24 22:59 Urine RBC 0-2 /hpf (0-2) 05/10/24 22:59 Urine WBC 0-5 /hpf (0-5) 05/10/24 22:59 Ur Squamous Epith Cells 0-5 /hpf (0-5) 05/10/24 22:59 Amorphous Sediment Not Reportable 05/10/24 22:59 Urine Bacteria None seen /hpf (NONE) 05/10/24 22:59 Hyaline Casts 0-4 /lpf H 05/10/24 22:59 Urine Opiates Screen Positive ng/mL (Negative) H 05/10/24 22:59 Ur Barbiturates Screen Negative ng/mL (Negative) 05/10/24 22:59 Ur Phencyclidine Scrn Negative ng/mL (Negative) 05/10/24 22:59 Ur Amphetamines Screen Negative ng/mL (Negative) 05/10/24 22:59 U Benzodiazepines Scrn Negative ng/mL (Negative) 05/10/24 22:59 Urine Cocaine Screen Negative ng/mL (Negative) 05/10/24 22:59 U Marijuana (THC) Screen Negative ng/mL (Negative) 05/10/24 22:59 Adenovirus (PCR) Not detected (NOT DETECT) 05/10/24 21:15 C. pneumoniae DNA (PCR) Not detected (NOT DETECT) 05/10/24 21:15 Coronavirus 229E (PCR) Not detected (NOT DETECT) 05/10/24 21:15 Human Metapneumovir PCR Not detected (NOT DETECT) 05/10/24 21:15 Influenza A (H1) PCR Not detected (NOT DETECT) 05/10/24 21:15 Influ A (H1/09) PCR Not detected (NOT DETECT) 05/10/24 21:15 Influenza A (H3) PCR Not detected (NOT DETECT) 05/10/24 21:15 Influenza Type A (PCR) Not detected (NOT DETECT) 05/10/24 21:15 Influenza Type B (PCR) Not detected (NOT DETECT) 05/10/24 21:15 M. pneumoniae (PCR) Not detected (NOT DETECT) 05/10/24 21:15 Parainfluenza 1 (PCR) Not detected (NOT DETECT) 05/10/24 21:15 Parainfluenza 2 (PCR) Not detected (NOT DETECT) 05/10/24 21:15 Parainfluenza 3 (PCR) Not detected (NOT DETECT) 05/10/24 21:15 Parainfluenza 4 (PCR) Not detected (NOT DETECT) 05/10/24 21:15 RSV Type A (PCR) Not detected (NOT DETECT) 05/10/24 21:15 RSV Type B (PCR) Not detected (NOT DETECT) 05/10/24 21:15 Entero/Rhino (PCR) Detected (NOT DETECT) A 05/10/24 21:15 SARS-CoV-2 (PCR) Not detected (NOT DETECT) 05/10/24 21:15 A&P Assessment and plan (1) NSTEMI (non-ST elevated myocardial infarction): Patient status post cardiac catheterization, revealing high-grade lesion in the mid circumflex artery. Status post PCI, currently seems to be stable (2) Hypertension: The blood pressure seems to be slowly getting under control. May continue on the current medication for the time being Qualifiers: Hypertension type: primary hypertension Qualified Code(s): I10 - Essential (primary) hypertension (3) Uncontrolled diabetes mellitus: Blood sugars seem to be getting under control. May continue on the current management. Qualifiers: Diabetes mellitus type: type 1 Glycemic state: with hyperglycemia Qualified Code(s): E10.65 - Type 1 diabetes mellitus with hyperglycemia (4) Dyslipidemia: May continue on the current management (5) Premature ventricular contractions: Could be related to ischemia. Currently seems to be asymptomatic. Plan If the patient continues to remain stable, may be discharged home today. Currently on the Plavix and aspirin Patient will be seen at [facility] week by the nurse practitioner Patient will be seen by me in 4 weeks Patient is advised to continue the medications as mentioned above. The importance of compliance to diet, medications and exercise were discussed. In the event of the patient developing chest pain ,unusual palpitations or any new symptoms, is advised to contact me or come to the hospital. Attestations Medical Necessity Statement*: Possible discharge home today Coding Level of Care Code 22569 Diagnoses NSTEMI (non-ST elevated myocardial infarction) I21.4 Primary hypertension I10 Hypertension type: primary hypertension Uncontrolled type 1 diabetes mellitus with hyperglycemia E10.65 Diabetes mellitus type: type 1 Glycemic state: with hyperglycemia Dyslipidemia E78.5 Premature ventricular contractions I49.3
--- NOTE | 2024-05-13 14:22 | PC.NURSE ---
Patient was discharged home successfully with . IV was taken out and all discharge instructions were given. All appointments were made and patient was given instructions on when to go and where to find them. All of patient's belongings were sent with the patient.
== END 2024-05-13 14:05 | disposition home or self-care (01) | DRG 322 ==
LOC: ER 19:02 → ICU 19:56
PROVIDERS: Family Medicine; Internal Medicine; Student in an Organized Health Care Education/Training Program; Admitting Provider Student in an Organized Health Care Education/Training Program; Emergency Provider Emergency Medicine; PCP Registered Nurse; Visit Provider Family Medicine
PROC: 02703DZ Dilation of Coronary Artery, One Artery with Intraluminal Device, Percutaneous Approach (ICD-10-PCS; principal; 2024-05-12 12:00)
PROC: 02703DZ Dilation of Coronary Artery, One Artery with Intraluminal Device, Percutaneous Approach (ICD-10-PCS; 2024-05-12 12:00)
DX: I21.4 Non-ST elevation (NSTEMI) myocardial infarction (principal); Z68.41 Body mass index [BMI] 40.0-44.9, adult; I10 Essential (primary) hypertension; E78.1 Pure hyperglyceridemia; E11.65 Type 2 diabetes mellitus with hyperglycemia; I25.10 Atherosclerotic heart disease of native coronary artery without angina pectoris; E66.9 Obesity, unspecified; E88.810 Metabolic syndrome; E78.5 Hyperlipidemia, unspecified; I49.3 Ventricular premature depolarization
CPT/HCPCS: 36415; 36416; 71045; 71275; 80048; 80053; 80061; 80306; 81001; 82607; 82746; 82962; 83036; 83540; 83550; 83690; 83721; 83735; 84100; 84145; 84443; 84484; 84703; 85025; 85347; 85378; 86140; 87486; 87581; 87633; 93005; 93306; 93454; 94664; 96372; 96374; 96375; 96376; 99152; 99153; 99285; C1725; C1760; C1769; C1874; C1887; C1894; C9600; G0269; G0378; J0360; J1644; J1650; J1815; J2250; J2270; J2405; J2470; J3010; J3490; J7030; Q9967

== ENCOUNTER → 2024-05-14 09:35 | Outpatient (BNVA) | payer OTHER, MEDICAID, SELFPAY | PROVIDERS: PCP Registered Nurse; Visit Provider Internal Medicine | DX: E78.1 Pure hyperglyceridemia (principal); E10.65 Type 1 diabetes mellitus with hyperglycemia | CPT/HCPCS: 36415; 80061 ==

== ENCOUNTER 2024-10-22 20:33 | Emergency (ER) | payer OTHER, SELFPAY ==
[2024-10-22 20:36] VITALS: BP 129/79; PULSE 70; RESP 18; TEMP 36.6; O2SAT 97; BMI 35.2
--- NOTE | 2024-10-22 20:38 | ECG_ITS ---
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 Measurements Intervals [place] Rate: 71 P: 72 [place]: 126 QRS: 95 QRSD: 92 T: 51 QT: 403 QTc: 439 Interpretive Statements SINUS RHYTHM BORDERLINE RIGHT AXIS DEVIATION [QRS AXIS > 90] Compared to ECG 05/12/2024 09:18:37 Myocardial infarct finding no longer present Electronically Signed On 10-25-2024 07:44:26 CDT by Louie Mccann M.D. [email or web address]
--- NOTE | 2024-10-22 21:27 | XRR_ITS ---
PROCEDURE INFORMATION: Exam: XR Chest Exam date and time: 10/22/2024 9:31 PM Age: 33 years old Clinical indication: Chest wall pain; Additional info: Chest pain TECHNIQUE: Imaging protocol: Radiologic exam of the chest. Views: 1 view. COMPARISON: CT angio chest PE protcl [id number] 05/10/2024 5:34 PM FINDINGS: Lungs: Unremarkable. No consolidation. Pleural spaces: Unremarkable. No pleural effusion. No pneumothorax. Heart/Mediastinum: Stable cardiomegaly. Bones/joints: Unremarkable. XR/XR chest 1V portable [id number] IMPRESSION: 1. No acute intrathoracic findings. 2. Stable cardiomegaly.
[2024-10-22 21:33] VITALS: BP 147/86; PULSE 67; RESP 18; O2SAT 97
[2024-10-22 21:38] LABS: Basophils # 0.1 10^3/uL (0.0-0.1); Basophils % 0.4 %; Eosinophils # 0.1 10^3/uL (0.0-0.8); Eosinophils % 1.2 %; Hematocrit 47.1 % (36-47); Lymphocytes # 3.1 10^3/uL (0.8-4.8); Lymphocytes % 27.7 %; Mean Corpuscular HGB Conc 31.8 g/dL (30-55); Mean Corpuscular Hemoglobin 28.1 pg (27-33); Mean Corpuscular Volume 88.4 fl (85-98); Mean Platelet Volume 9.8 fL (7.4-10.4); Monocytes # 0.9 10^3/uL (0.2-0.9); Monocytes % 7.8 %; Neutrophils # 7.04 10^3/uL (1.8-7.7); Neutrophils % 62.5 %; Nucleated Red Blood Cells % 0 %; Platelet Count 286 10^3/cmm (157-399); Red Blood Count 5.33 10^6/uL (3.85-5.65); Red Cell Distribution Width 13.2 % (12.1-15.1); White Blood Count 11.28 10^3/uL (3.29-11.43)
[2024-10-22] MEDS: ondansetron 2 mg/ML SDV 2 mL 4 MG IVP (21:47)
[2024-10-22] MEDS: morphine 4 mg/mL SDV 1 mL 2 MG IVP (21:47)
[2024-10-22 21:50] LABS: D Dimer <= 0.27 ug/mLFEU (0-0.59)
--- NOTE | 2024-10-22 21:50 | ECG_ITS ---
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 Measurements Intervals [place] Rate: 72 P: 80 [place]: 151 QRS: 98 QRSD: 96 T: 62 QT: 414 QTc: 455 Interpretive Statements SINUS RHYTHM BORDERLINE RIGHT AXIS DEVIATION [QRS AXIS > 90] Compared to ECG 05/12/2024 09:18:37 Myocardial infarct finding no longer present Electronically Signed On 10-22-2024 21:59:19 CDT by Kailash Esqueda M.D. [email or web address]
[2024-10-22 21:53] LABS: Troponin(5th) Baseline 9 ng/L (0-10)
[2024-10-22 22:25] LABS: Alanine Aminotransferase 20 U/L (0-33); Albumin Level 4.5 g/dL (3.5-5.2); Alkaline Phosphatase 24 U/L (35-105); Aspartate Amino Transferase 17 U/L (0-32); Blood Urea Nitrogen 27 mg/dL (6-20); Calcium 9.6 mg/dL (8.5-10.5); Carbon Dioxide 22 mmol/L (22-29); Chloride 98 mmol/L (98-107); Creatinine Clr Calc Pharmacy 116.8818; Globulin 3.2 g/dL (1.3-4.6); Glomerular Filtration Rate 83.7 mL/min (90-130); Glucose 98 mg/dL (65-115); NT Pro B Type Natriuretic Pept 57 pg/mL (0-125); Osmolality Calculated 285 mOsm/kg (285-295); Sodium 135 mmol/L (136-145); Total Bilirubin 0.5 mg/dL (0.15-1.2); Total Protein 7.7 g/dL (6.6-8.7)
[2024-10-22 23:04] VITALS: BP 124/74; PULSE 76; RESP 18; O2SAT 96
[2024-10-22 23:26] LABS: Troponin 5 2HR 10.36 ng/L (0-10); Troponin 5 2HR Delta 1.36 ABS# (0-10)
--- NOTE | 2024-10-22 23:27 | ECG_ITS ---
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 Measurements Intervals [place] Rate: 68 P: 80 [place]: 155 QRS: 97 QRSD: 94 T: 59 QT: 421 QTc: 449 Interpretive Statements SINUS RHYTHM BORDERLINE RIGHT AXIS DEVIATION [QRS AXIS > 90] Compared to ECG 10/22/2024 21:50:18 No significant changes Electronically Signed On 10-25-2024 07:49:28 CDT by Louie Mccann M.D. [email or web address]
[2024-10-22 23:41] VITALS: BP 124/74; PULSE 73; RESP 16; O2SAT 96
--- NOTE | 2024-10-23 03:00 | ED_ITS ---
HPI - Chest Pain 2 General: Chief Complaint: Chest Pain Stated Complaint: Chest Pain,Irma put in may Time Seen by Provider: 10/22/24 21:20 History of Present Illness: This patient is a 33-year-old white female who presents to the emergency department complaining of right upper chest pain. She describes the pain as a sharp sensation radiating through to her back. She did have some mild shortness of breath. No nausea or vomiting. She does have a history of coronary artery disease and had a stent placed in May of last year. She is also a type II diabetic. Associated symptoms: Reports dyspnea Related Data Home Medications ?Medication ?Instructions ?Recorded ?Confirmed etonogestrel 68 mg subdermal 1 implant subdermal .EVER Y 3 YEARS 05/11/24 07/29/24 implant (Nexplanon) Previous Rx's ?Medication ?Instructions ?Recorded pen needle, diabetic 31 gauge x #100 ea 07/17/2310/19 (Comfort EZ Pen [place]) flash glucose scanning reader #1 ea 12/21/23 (FreeStyle Trini 2 [place]) insulin aspart U-100 100 unit/mL See Rx Instructions . Route 05/13/24 (3 mL) subcutaneous pen (Novolog .COMPLEX #15 mL FlexPen U-100 Insulin aspart) flash glucose sensor (FreeStyle #6 ea 05/14/24 Trini 2 Sensor kit) dulaglutide 1.5 mg/0.5 mL 1.5 mg (0.5 mL) SUBCUT Q7D 1 month 05/19/24 subcutaneous pen injector #2 mL (Trulicity) dulaglutide 3 mg/0.5 mL 3 mg (0.5 mL) SUBCUT Q7D #2 mL 05/19/24 subcutaneous pen injector (Trulicity) insulin glargine 100 unit/mL (3 30 unit (0.3 mL) SUBCU T DAILY #30 05/19/24 mL) subcutaneous pen mL ibuprofen 800 mg tablet 800 mg PO TID #90 tabs 07/12 fluconazole 150 mg tablet 150 mg PO Q3D 2 doses #2 tab s 07/17/24 atorvastatin 80 mg tablet 80 mg PO DAILY #90 tabs 07/06 01/27 clopidogrel 75 mg tablet 75 mg PO DAILY #90 tabs 07/06 01/27 fenofibrate nanocrystallized 145 145 mg PO DAILY 30 da ys #90 tabs 07/21/24 mg tablet losartan 50 mg tablet 50 mg PO DAILY #90 tabs 07/06 01/27 metoprolol tartrate 25 mg tablet 25 mg PO BID@0900,210 0 #180 tabs 07/21/24 empagliflozin 25 mg tablet See Rx Instructions .Route 08/07/24 (Jardiance) .COMPLEX #90 tabs fluconazole 150 mg tablet See Rx Instructions PO DAILY 10 08/27/24 days #2 tabs sertraline 25 mg tablet (Zoloft) 25 mg PO DAILY 90 day s #90 tabs 10/09/24 Allergies Allergy/AdvReac Type Severity Reaction Status Date / Time No Known Allergies Allergy Verified 07/29/24 08:38 Review of Systems 2 General: Reports: 10 or more systems reviewed and unremarkable except in HPI and below Card: Reports: chest pain Resp: Reports: dyspnea PFSH ED 2 PFSH: Medical History Rubella immune status not known Rubella was immune at 49.3 on 09/19/2022 Hypertension Diabetes Surgical History History of excision of pilonidal cyst (09/29/21) Hx of section 04/13/2019-----> primary low transverse delivery performed by Dr. rivas for nonreassuring heart tracing at [facility]. Double layer closure with no extensions. H/O oral surgery Family History Father Diabetes Hypertension Mother Hypertension Family/Other Breast cancer Maternal Great Aunt-- dx age 70's Denies family history of Colon cancer Ovarian cancer Heart disease Uterine cancer Thyroid disease Stroke Social History Smoking and tobacco/nicotine status: never used tobacco/nicotine Substance/Drug Use: never Physical Exam 2 Const: COMMON NORMALS: no acute distress, patient oriented x3 and no limitations GENERAL APPEARANCE: cooperative and comfortable HENMT: COMMON NORMALS: normocephalic, atraumatic, Normal nasal mucous membranes and turbinates present, moist oral mucous membranes and oropharynx normal HEAD & SCALP: normal to inspection, normocephalic and atraumatic F MARY & SINUS: normal facial exam NOSE: Normal nasal mucous membranes and turbinates present Eye: COMMON NORMALS: Equal, round and reactive pupils present, EOMs intact bilaterally and conjunctivae normal GENERAL EYE: appearance normal, both eyes and all related structures CONJUNCTIVA: Yes conjunctivae normal PUPIL: Yes Equal, round and reactive pupils present Neck/C-Spine: COMMON NORMALS: supple and no JVD Chest: COMMONS NORMALS: normal inspection of the chest Resp: COMMON NORMALS: normal respiratory effort and clear to auscultation bilaterally AUSCULTATION: clear to auscultation bilaterally Cardio: COMMON NORMALS: no JVD, regular rate, regular rhythm, No gallops present (Cardio), No murmurs present (Cardio) and No rub (Cardio) RATE: r egular rate RHYTHM: regular rhythm GI: COMMON NORMALS: Normal to inspection, nondistended, normoactive bowel sounds present, Soft to palpation and non-tender AUSCULTATION: Yes normoactive bowel sounds PALPATION: Yes Soft to palpation : COMMON NORMALS: Yes no CVA tenderness BLADDER/KIDNEY EXAM: Yes no CVA tenderness Back/Pelvis: COMMON NORMALS: no CVA tenderness and thoracic and lumbar spine normal to inspection Extremity: COMMON NORMALS: normal to inspection Neuro: COMMON NORMALS: patient oriented x3 and CN's II-XII intact bilaterally Psych: COMMON NORMALS: mental status grossly normal, Normal thought process present and cooperative THOUGHT PROCESS: Normal thought process present Skin: COMMON NORMALS: no rashes or lesions noted, turgor normal and no jaundice GENERAL SKIN EXAM: no rashes or lesions noted and turgor normal Course 2 Vital Signs: Vital signs: Vital Signs Temperature 97.9 F 10/22/24 20:36 Pulse Rate 73 10/22/24 23:41 Respiratory Rate 16 10/22/24 23:41 Blood Pressure 124/74 10/22/24 23:41 Pulse Oximetry 96 10/22/24 23:41 Oxygen Delivery Me thod Room Air 10/22/24 23:04 MDM - Chest Pain Medical Decision Making EKG revealed normal sinus rhythm with no ST segment abnormalities. Chest x-ray was normal. CBC and CMP normal. BNP was 57. D-dimer was less than 0.27. The baseline troponin was 9 with a 2-hour level of 10. Patient was given morphine and Zofran. Pain completely resolved. She remained asymptomatic throughout the remaining ER stay. Recommended she follow-up with her primary care provider within the next several days for recheck. She was discharged in stable condition. Lab Data 10/22/24 21:10/22/24 21: Radiology Impressions Chest X-Ray 10/22/24 21: IMPRESSION: 1. No acute intrathoracic findings. 2. Stable cardiomegaly. Laboratory Results WBC 11.28 10^3/uL (3.29-11.43) 10/22/24 21: RBC 5.33 10^6/uL (3.85-5.65) 10/22/24: Hgb 15.00 g/dL (11.27-16.99) 10/22/24: Hct 47.1 % (36-47) H 10/22/24: MCV 88.4 fl (85-98) 10/22/24: MCH 28.1 pg (27-33) 10/22/24: MCHC 31.8 g/dL (30-55) 10/22/24: RDW 13.2 % (12.1-15.1) 10/22/24: Plt Count 286 10^3/cmm (157-399) 10/22/24: MPV 9.8 fL (7.4-10.4) 10/22/24: Neut % (Auto) 62.5 % 10/22/24: Lymph % (Auto) 27.7 % 10/22/24: [place] % (Auto) 7.8 % 10/22/24: Eos % (Auto) 1.2 % 10/22/24: Baso % (Auto) 0.4 % 10/22/24: Neut # (Auto) 7.04 10^3/uL (1.8-7.7) 10/22/24: Lymph # (Auto) 3.1 10^3/uL (0.8-4.8) 10/22/24: [place] # (Auto) 0.9 10^3/uL (0.2-0.9) 10/22/24: Eos # (Auto) 0.1 10^3/uL (0.0-0.8) 10/22/24 21:30 Baso # (Auto) 0.1 10^3/uL (0.0-0.1) 10/22/24 21: Nucleated RBC % (auto) 0 % 10/22/24 21: Nucleated RBCs # 0.0 /100WBC 10/22/24 21:30 D-Dimer <= 0.27 ug/mLFEU (0-0.59) 10/22/24 21: Sodium 135 mmol/L (136-145) L 10/22/24 21: Potassium 4.0 mmol/L (3.5-5.1) 10/22/24: Chloride 98 mmol/L (98-107) 10/22/24: Carbon Dioxide 22 mmol/L (22-29) 10/22/24: Anion Gap 19.0 (5-19) 10/22/24: BUN 27 mg/dL (6-20) H 10/22/24 21: Creatinine 0.8 mg/dL (0.5-0.9) 10/22/24 21:30 GFR Calculation 83.7 mL/min (90-130) L 10/22/24 21: Glucose 98 mg/dL (65-115) 10/22/24: Calculated Osmolality 285 mOsm/kg (285-295) 10/22/24: Calcium 9.6 mg/dL (8.5-10.5) 10/22/24: Total Bilirubin 0.5 mg/dL (0.15-1.2) 10/22/24: AST 17 U/L (0-32) 10/22/24 21:30 ALT 20 U/L (0-33) 10/22/24 21:30 Alkaline Phosphatase 24 U/L (35-105) L 10/22/24 21:30 Troponin T Baseline 9 ng/L (0-10) 10/22/24 21: Troponin T 120 Minute 10.36 ng/L (0-10) H 10/22/24 23:05 Delta Troponin T 1.36 ABS# (0-10) 10/22/24 23:05 NT-Pro-B Natriuret Pep 57 pg/mL (0-125) 10/22/24 21:30 Total Protein 7.7 g/dL (6.6-8.7) 10/22/24 21:30 Albumin 4.5 g/dL (3.5-5.2) 10/22/24 21:30 Globulin 3.2 g/dL (1.3-4.6) 10/22/24 21:30 All radiology interpretation(s) finalized by discharge Discharge Plan Discharge Patient Disposition: Home Clinical Impression: Chest pain Qualifiers: Chest pain type: unspecified Qualified Code(s): R07.9 - Chest pain, unspecified Condition: Stable Prescriptions: No Action (DME) FreeStyle Trini 2 Sensor Kit See Rx Instructions .Route Qty: 6 1RF Rx Instructions: As directed ibuprofen 800 mg tablet 800 mg PO TID Qty: 90 3RF atorvastatin 80 mg tablet 80 mg PO DAILY Qty: 90 1RF clopidogrel 75 mg tablet 75 mg PO DAILY Qty: 90 3RF fenofibrate nanocrystallized 145 mg tablet 145 mg PO DAILY 30 Days Qty: 90 1RF losartan 50 mg tablet 50 mg PO DAILY Qty: 90 3RF metoprolol tartrate 25 mg tablet 25 mg PO BID@0900,2100 Qty: 180 3RF fluconazole 150 mg tablet 150 mg PO Q3D Qty: 2 0RF (DME) pen needle, diabetic [Comfort EZ Pen [place]] 31 gauge x 3/16 needle See Rx Instructions .Route Qty: 100 2RF Rx Instructions: As directed (DME) FreeStyle Trini 2 [place] Misc See Rx Instructions .Route Qty: 1 0RF Rx Instructions: As directed insulin glargine 100 unit/mL (3 mL) insulin pen 30 unit SUBCUT DAILY Qty: 30 1RF Trulicity 1.5 mg/0.5 mL pen injector 1.5 mg SUBCUT Q7D 30 Days Qty: 2 0RF Rx Instructions: inject 1.5mg weekly for one month Trulicity 3 mg/0.5 mL pen injector 3 mg SUBCUT Q7D Qty: 2 1RF Rx Instructions: inject 3mg weekly Jardiance 25 mg tablet See Rx Instructions .ROUTE .COMPLEX Qty: 90 0RF Dose Instruction: Take 1 tablet by mouth once daily Rx Instructions: Take 1 tablet by mouth once daily fluconazole 150 mg tablet See Rx Instructions PO DAILY 10 Days Qty: 2 0RF Rx Instructions: 1 tab now, repeat in 10 days sertraline [Zoloft] 25 mg tablet 25 mg PO DAILY 90 Days Qty: 90 0RF Nexplanon 68 mg Implant 1 implant SUBDERMAL .EVERY 3 YEARS insulin aspart U-100 [Novolog FlexPen U-100 Insulin] 100 unit/mL (3 mL) insulin pen See Rx Instructions .ROUTE .COMPLEX Qty: 15 0RF Rx Instructions: Inject, subcut, 3 times daily, after meals, based on sliding scale provided Discharge Orders: Discharge ED (Routine); Ordered 10/22/24 Ordered By: Kd Mann Referrals: Vicky Srivastava FNP [Primary Care Provider] - Patient Instructions: Chest Pain (DC) Stand Alone Forms: Work/School Release Print Language: Setswana Coding Level of Care Code ED [employer] Applier for Susan Capellan
== END 2024-10-22 23:51 | disposition home or self-care (01) ==
PROVIDERS: Emergency Provider Emergency Medicine; PCP Registered Nurse
DX: R07.9 Chest pain, unspecified (principal); Z79.02 Long term (current) use of antithrombotics/antiplatelets; Z79.4 Long term (current) use of insulin; E11.9 Type 2 diabetes mellitus without complications; I10 Essential (primary) hypertension
CPT/HCPCS: 71045; 80053; 83880; 84484; 85025; 85378; 93005; 96374; 96375; 99285; J2270; J2405

== ENCOUNTER → 2025-01-14 11:30 | Outpatient (BNVA) | payer OTHER, SELFPAY | PROVIDERS: PCP Registered Nurse; Visit Provider Registered Nurse | DX: E11.9 Type 2 diabetes mellitus without complications (principal); L65.9 Nonscarring hair loss, unspecified | CPT/HCPCS: 80048; 82306; 82607; 83036; 84443 ==

== ENCOUNTER → 2025-02-13 09:36 | Outpatient (BNVA) | payer OTHER, SELFPAY | PROVIDERS: PCP Registered Nurse; Visit Provider Nurse Practitioner Family | DX: I10 Essential (primary) hypertension (principal); E10.65 Type 1 diabetes mellitus with hyperglycemia; E78.1 Pure hyperglyceridemia; I25.10 Atherosclerotic heart disease of native coronary artery without angina pectoris | CPT/HCPCS: 36415; 80053; 80061; 82044 ==

== ENCOUNTER → 2025-07-10 14:09 | Outpatient (BNVA) | payer OTHER, SELFPAY | PROVIDERS: PCP Registered Nurse; Visit Provider Nurse Practitioner Family | DX: R50.9 Fever, unspecified (principal) | CPT/HCPCS: 87400; 87426 ==

== ENCOUNTER 2025-07-21 15:31 | Emergency (ER) | payer OTHER, SELFPAY ==
--- NOTE | 2025-07-21 15:49 | XRR_ITS ---
PROCEDURE INFORMATION: Exam: XR Chest Exam date and time: 07/21/2025 4:13 PM Age: 34 years old Clinical indication: Other: Syncope TECHNIQUE: Imaging protocol: Radiologic exam of the chest. Views: 1 view. COMPARISON: CR XR chest 1V portable [id number] 10/22/2024 9:31 PM FINDINGS: Lungs: No focal consolidation or other acute appearing pulmonary opacity. Pleural spaces: No pleural effusion or pneumothorax noted. Heart/Mediastinum: There is no cardiomegaly. Bones/joints: No acute osseous abnormality. XR/XR chest 1V portable [id number] IMPRESSION: No acute findings.
[2025-07-21 16:00] VITALS: BP 149/93; PULSE 87; RESP 17; TEMP 36.7; O2SAT 97; BMI 39.5
--- NOTE | 2025-07-21 16:11 | ECG_ITS ---
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 Measurements Intervals [place] Rate: 87 P: 46 OK: 129 QRS: 32 QRSD: 94 T: 26 QT: 368 QTc: 443 Interpretive Statements SINUS RHYTHM Poor R wave progression Compared to ECG 10/22/2024 23:15:26 There may not be a significant change Electronically Signed On 07-21-2025 21:22:23 RESILIENT TILE INSTALLER by Kailash Esqueda M.D. [email or web address]
--- NOTE | 2025-07-21 16:28 | ED_ITS ---
HPI - Syncope 2 General: Chief Complaint: Syncope Stated Complaint: pcp sent, blacked out Time Seen by Provider: 07/21/25 15:59 Source: patient Mode of arrival: ambulatory Limitations: no limitations History of Present Illness: Patient is a 34-year-old female presents the emergency department for evaluation. Her PCP sent her due to her having a syncopal episode while at work today. This occurred at about 1415, this patient has pertinent past medical history of coronary artery stents placed last May, please refer to catheterization results below. This patient states that she was feeling well had no symptoms prior to the incident, stood up and then reportedly went limp and came to on the ground. There was no significant downtime, patient denies any preceding chest pain, shortness of breath, dizziness or lightheadedness, or palpitations. States that she has been drinking fluids there is no reason for her to be dehydrated as she is not reporting any vomiting or diarrhea. She does take lisinopril and metoprolol but denies any recent medication changes. She states that since last May she has been doing great, has a follow-up appointment with her internal controls specialist in August to likely discontinue the Plavix that she was started on. She did strike her nose and forehead, is having a headache at this time but no visual changes or focal neurological deficit. Patient has no other complaints at this time other than the mild headache, she has not had any chest pain today, currently her vitals are stable. No vaginal bleeding or other symptoms of GI blood loss anemia. She is also type II diabetic, states that she recently moved here has been without her Dexcom but that recently her blood sugars have been running high when she manually checks it. She has no history of previous syncopal episodes. Patient's cardiac cath result from 05/12/2024 is as follows: Diagnostic Findings * Left Main has no significant disease. 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 * Left Anterior Descending has no significant disease. * Right Coronary Artery has no significant disease. * Coronary angiography shows right dominance. Mid circumflex treated with balloon, balloon, drug-eluting stent, and balloon. complaint: collapsed Onset (ago): hour(s) -: second(s) Prodromal symptoms: none Witnessed: Yes - by Bystander Context: standing up Injuries sustained associated with event: face Associated symptoms: Deny abdominal pain, chest pain, fever(s), headache(s), lightheadedness or nausea Related Data Home Medications ?Medication ?Instructions ?Recorded ?Confirmed etonogestrel 68 mg subdermal 1 implant subdermal .EVER Y 3 YEARS 05/11/24 07/10/25 implant (Nexplanon) cholecalciferol (vitamin D3) 125 125 mcg PO DAILY 02/0307/10/25 mcg (5,000 unit) capsule Previous Rx's ?Medication ?Instructions ?Recorded pen needle, diabetic 31 gauge x #100 ea 07/17/2310/19 (Comfort EZ Pen [place]) insulin glargine 100 unit/mL (3 30 unit (0.3 mL) SUBCU T DAILY #30 05/19/24 mL) subcutaneous pen mL ibuprofen 800 mg tablet 800 mg PO TID #90 tabs 07/12 atorvastatin 80 mg tablet 80 mg PO DAILY #90 tabs 07/06 01/27 fenofibrate nanocrystallized 145 145 mg PO DAILY 30 da ys #90 tabs 07/21/24 mg tablet losartan 50 mg tablet 50 mg PO DAILY #90 tabs 07/06 01/27 metoprolol tartrate 25 mg tablet 25 mg PO BID@0900,210 0 #180 tabs 07/21/24 blood-glucose,machinery mover,cont #1 ea 03/11/25 (FreeStyle Trini 3 [place]) empagliflozin 10 mg tablet 10 mg PO DAILY #60 tabs 10/28 (Jardiance) sertraline 25 mg tablet (Zoloft) 25 mg PO DAILY 90 day s #90 tabs 04/10/25 blood-glucose sensor (FreeStyle #6 ea 05/18/25 Trini 3 Plus Sensor device) semaglutide 0.25 mg or 0.5 mg (2 0.25 mg (0.368 mL) GRIGGS BCUT Q7D 1 05/18/25 mg/3 mL) subcutaneous pen injector month #1.84 mL (Ozempic) clopidogrel 75 mg tablet 75 mg PO DAILY #90 tabs 11/10/28 amoxicillin 875 mg-potassium 1 tab PO BID 7 days #14 t abs 07/10/25 clavulanate 125 mg tablet benzonatate 200 mg capsule 200 mg PO TID PRN cough #20 caps 12/05/25 Allergies Allergy/AdvReac Type Severity Reaction Status Date / Time No Known Allergies Allergy Verified 07/21/25 16:06 Review of Systems 2 General: Reports: 10 or more systems reviewed and unremarkable except in HPI and below Const: Denies: fever(s), chills or fatigue Eyes: Denies: change in vision ENMT: Reports: sinus pain; Denies: throat pain, ear or mastoid pain or nasal discharge Card: Reports: syncope; Denies: chest pain, palpitations, swelling of feet/ankles, lightheadedness or dyspnea on exertion Resp: Denies: dyspnea, productive cough or wheezing GI: Denies: abdominal pain, nausea, vomiting, diarrhea or constipation : Denies: flank pain, difficulty voiding, dysuria or urinary frequency Musc: Denies: neck pain, back pain or joint pain Skin/Breast: Denies: rash Neuro: Denies: headache(s), numbness in extremities or weakness in extremities PFSH ED 2 PFSH: Medical History Rubella immune status not known Rubella was immune at 49.3 on 09/19/2022 Hypertension Diabetes Surgical History History of excision of pilonidal cyst (09/29/21) Hx of section 04/13/2019-----> primary low transverse delivery [place] by Dr. rivas [place]ass[place] [facility] [place] closure with no extensions. H/O oral surgery Family History Father Diabetes Hypertension Mother Hypertension Family/Other Breast cancer Maternal Great Aunt-- dx age 70's Denies family history of Colon cancer Ovarian cancer Heart disease Uterine cancer Thyroid disease Stroke Social History Smoking and tobacco/nicotine status: never used tobacco/nicotine Substance/Drug Use: never Physical Exam 2 Const: COMMON NORMALS: no acute distress, patient oriented x3 and no limitations GENERAL APPEARANCE: cooperative, comfortable and well developed ORIENTATION/CONSCIOUSNESS: Yes awake, Yes oriented to person, Yes oriented to place and Yes oriented to time HENMT: COMMON NORMALS: normocephalic, atraumatic and hearing grossly normal bilaterally HEAD & SCALP: normocephalic and atraumatic OTHER: Mild nasal contusion/erythema. Forehead tenderness to palpation without evidence of trauma. Eye: COMMON NORMALS: Equal, round and reactive pupils present, EOMs intact bilaterally and conjunctivae normal CONJUNCTIVA: Yes conjunctivae normal P UPIL: Yes Equal, round and reactive pupils present Neck/C-Spine: COMMON NORMALS: full ROM, supple and no JVD Resp: COMMON NORMALS: normal respiratory effort, No retractions, No use of accessory muscles and clear to auscultation bilaterally AUSCULTATION: clear to auscultation bilaterally Cardio: COMMON NORMALS: no JVD, regular rate, regular rhythm, No clicks present (Cardio), No murmurs present (Cardio) and No rub (Cardio) RATE: r egular rate RHYTHM: regular rhythm GI: COMMON NORMALS: Normal to inspection, nondistended, normoactive bowel sounds present, Soft to palpation and non-tender AUSCULTATION: Yes normoactive bowel sounds PALPATION: Yes Soft to palpation RECTAL EXAM: d eferred Extremity: COMMON NORMALS: normal to inspection, full ROM and capillary refill normal Neuro: COMMON NORMALS: patient oriented x3, CN's II-XII intact bilaterally, moves all extremities, no focal motor deficits and no sensory deficits noted SENSORIUM/ORIENTATION: Yes oriented to person, Yes oriented to place and Yes oriented to time Psych: COMMON NORMALS: mental status grossly normal and Normal thought process present THOUGHT PROCESS: Normal thought process present Skin: COMMON NORMALS: no rashes or lesions noted GENERAL SKIN EXAM: no rashes or lesions noted Course 2 Vital Signs: Vital signs: Vital Signs Temperature 98.1 F 07/21/25 16:00 Pulse Rate 87 07/21/25 16:00 Respiratory Rate 17 07/21/25 16:00 Blood Pressure 149/93 07/21/25 16:00 Pulse Oximetry 97 07/21/25 16:00 Oxygen Delivery Me thod Room Air 07/21/25 16:00 MDM - Syncope Medical Decision Making 34-year-old female history of cardiac stents present with isolated syncopal episode, most consistent with vasovagal syncope in the setting of menstruation. Patient experienced no prodromal symptoms or postevent symptoms, and the episode occurred while menstruating, which is a recognized trigger for vasovagal syncope. She has a history of cardiac stents, her presentation lacks high risk features, she had no palpitations preceding the event, no exertional component, negative delta troponin, and normal ECG findings. The absence of cardiac symptoms and negative cardiac biomarkers make arrhythmic or ischemic syncope unlikely. She did sustain facial trauma from the fall, however her normal neurological examination and absence of convincing signs of external injury make intracranial hemorrhage unlikely despite antiplatelet therapy with Plavix and aspirin. The patient was taken ibuprofen 800 mg 3 times daily with the understanding that provided blood thinning effects, informed her that concomitant use of NSAIDs with dual antiplatelet therapy significantly increases bleeding risk and may impair platelet function. Will have her discontinue the ibuprofen and educated her on prescribing to platelet regimen and what is appropriate for her cardiac stent history. She has upcoming appointment in August to discuss her Plavix that she has been on it greater than a year, as her cardiac cath was last May. She will be discharged with syncope education and precautions. She is counseled on the benign nature of vasovagal syncope, common triggers including menstruation, and the importance of recognizing prodromal symptoms. She is advised to maintain adequate hydration and salt intake and to avoid prolonged standing, particularly during menstruation when lightheadedness may be more pronounced. Return precautions were provided for recurrent syncope, chest pain, palpitations, or neurological symptoms. Lab Data 07/21/25 16:20 07/21/25 16:20 Radiology Impressions Chest X-Ray 07/21/25 15:49 IMPRESSION: No acute findings. Laboratory Results WBC 11.37 10^3/uL (3.29-11.43) 07/21/25 16:20 RBC 5.31 10^6/uL (3.85-5.65) 07/21/25 16:20 Hgb 15.30 g/dL (11.27-16.99) 07/21/25 16:20 Hct 46.4 % (36-47) 07/21/25 16:20 MCV 87.4 fl (85-98) 07/21/25 16:20 MCH 28.8 pg (27-33) 07/21/25 16:20 MCHC 33.0 g/dL (30-55) 07/21/25 16:20 RDW 12.3 % (12.1-15.1) 07/21/25 16:20 Plt Count 313 10^3/cmm (157-399) 07/21/25 16:20 MPV 9.9 fL (7.4-10.4) 07/21/25 16:20 Neut % (Auto) 63.0 % 07/21/25 16:20 Lymph % (Auto) 27.5 % 07/21/25 16:20 [place] % (Auto) 6.5 % 07/21/25 16:20 Eos % (Auto) 2.1 % 07/21/25 16:20 Baso % (Auto) 0.5 % 07/21/25 16:20 Neut # (Auto) 7.15 10^3/uL (1.8-7.7) 07/21/25 16:20 Lymph # (Auto) 3.1 10^3/uL (0.8-4.8) 07/21/25 16:20 [place] # (Auto) 0.7 10^3/uL (0.2-0.9) 07/21/25 16:20 Eos # (Auto) 0.2 10^3/uL (0.0-0.8) 07/21/25 16:20 Baso # (Auto) 0.1 10^3/uL (0.0-0.1) 07/21/25 16:20 Nucleated RBC % (auto) 0 % 07/21/25 16:20 Nucleated RBCs # 0.0 /100WBC 07/21/25 16:20 Sodium 135 mmol/L (136-145) L 07/21/25 16:20 Potassium 4.6 mmol/L (3.5-5.1) 07/21/25 16:20 Chloride 95 mmol/L (98-107) L 07/21/25 16:20 Carbon Dioxide 24 mmol/L (22-29) 07/21/25 16:20 Anion Gap 20.6 (5-19) H 07/21/25 16:20 BUN 20 mg/dL (6-20) 07/21/25 16:20 Creatinine 0.9 mg/dL (0.5-0.9) 07/21/25 16:20 GFR Calculation 72.6 mL/min (90-130) L 07/21/25 16:20 Glucose 331 mg/dL (65-115) H 07/21/25 16:20 Calculated Osmolality 296 mOsm/kg (285-295) H 07/21/25 16:20 Calcium 9.4 mg/dL (8.5-10.5) 07/21/25 16:20 Total Bilirubin 0.4 mg/dL (0.15-1.2) 07/21/25 16:20 AST 14 U/L (0-32) 07/21/25 16:20 ALT 21 U/L (0-33) 07/21/25 16:20 Alkaline Phosphatase 31 U/L (35-105) L 07/21/25 16:20 Troponin T Baseline 13 ng/L (0-10) H 07/21/25 16:20 Troponin T 60 Minute 14.04 ng/L (0-10) H 07/21/25 17:14 Delta Troponin T 1.04 ABS# (0-10) 07/21/25 17:14 Total Protein 7.4 g/dL (6.6-8.7) 07/21/25 16:20 Albumin 4.3 g/dL (3.5-5.2) 07/21/25 16:20 Globulin 3.1 g/dL (1.3-4.6) 07/21/25 16:20 HCG, Qual Negative (Negative) 07/21/25 16:20 Urine Color Funk (Yellow) A 07/21/25 16:46 Urine Appearance Clear (CLEAR) 07/21/25 16:46 Urine pH 5.5 (5-7) 07/21/25 16:46 Ur Specific [place] 1.030 (1.005-1.030) 07/21/25 16:46 Urine Protein Negative (Negative) 07/21/25 16:46 Urine Glucose (UA) 3+ (Normal) H 07/21/25 16:46 Urine Ketones Negative (Negative) 07/21/25 16:46 Urine Blood 3+ (Negative) A 07/21/25 16:46 Urine Nitrate Negative (Negative) 07/21/25 16:46 Urine Bilirubin Negative (Negative) 07/21/25 16:46 Urine Urobilinogen 0.2 mg/dL (Negative) 07/21/25 16:46 Ur Leukocyte Esterase Negative (Negative) 07/21/25 16:46 Urine RBC >100 /hpf (0-2) H 07/21/25 16:46 Urine WBC 0-5 /hpf (0-5) 07/21/25 16:46 Ur Squamous Epith Cells 0-5 /hpf (0-5) 07/21/25 16:46 Amorphous Sediment Not Reportable 07/21/25 16:46 Urine Bacteria None seen /hpf (NONE) 07/21/25 16:46 Hyaline Casts 0-4 /lpf H 07/21/25 16:46 All radiology interpretation(s) finalized by discharge Discharge Plan Discharge Patient Disposition: Home Clinical Impression: Vasovagal syncope Condition: Stable Prescriptions: No Action ibuprofen 800 mg tablet 800 mg PO TID Qty: 90 3RF atorvastatin 80 mg tablet 80 mg PO DAILY Qty: 90 1RF fenofibrate nanocrystallized 145 mg tablet 145 mg PO DAILY 30 Days Qty: 90 1RF losartan 50 mg tablet 50 mg PO DAILY Qty: 90 3RF metoprolol tartrate 25 mg tablet 25 mg PO BID@0900,2100 Qty: 180 3RF cholecalciferol (vitamin D3) 125 mcg (5,000 unit) capsule 125 mcg PO DAILY Ozempic 0.25 mg or 0.5 mg (2 mg/3 mL) pen injector 0.25 mg SUBCUT Q7D 30 Days Qty: 1.84 0RF (DME) FreeStyle Trini 3 Plus Sensor Device See Rx Instructions .Route Qty: 6 1RF Rx Instructions: to monitor blood sugar amoxicillin-pot clavulanate 875-125 mg tablet 1 tab PO BID 7 Days Qty: 14 0RF benzonatate 200 mg capsule 200 mg PO TID PRN (Reason: cough) Qty: 20 0RF (DME) pen needle, diabetic [Comfort EZ Pen [place]] 31 gauge x 3/16 needle See Rx Instructions .Route Qty: 100 2RF Rx Instructions: As directed insulin glargine 100 unit/mL (3 mL) insulin pen 30 unit SUBCUT DAILY Qty: 30 1RF (DME) FreeStyle Trini 3 [place] Misc See Rx Instructions .Route Qty: 1 0RF Rx Instructions: to monitor blood sugar Jardiance 10 mg tablet 10 mg PO DAILY Qty: 60 2RF sertraline [Zoloft] 25 mg tablet 25 mg PO DAILY 90 Days Qty: 90 0RF clopidogrel 75 mg tablet 75 mg PO DAILY Qty: 90 3RF Nexplanon 68 mg Implant 1 implant SUBDERMAL .EVERY 3 YEARS Discharge Orders: Discharge ED (Routine); Ordered 07/21/25 Ordered By: González Champion Referrals: Vicky Srivastava FNP [Primary Care Provider, Family Practice] Patient Instructions: Patient Portal & Radha Instructions Activity Restrictions/Additional Instructions: Discharge Instructions Diagnosis: You experienced a fainting episode (syncope) that was most likely v asovagal in nature, meaning it was triggered by a temporary drop in blood pressure and heart rate. This can occur during menstruation and is generally not dangerous. Your heart tests, including troponin levels, were normal, and there is no evidence of a heart attack. Medications - IMPORTANT CHANGES: STOP taking ibuprofen (Advil, Motrin) immediately. You have been taking 800 mg three times daily, which is dangerous because: - Ibuprofen interferes with how aspirin protects your heart and can block its beneficial effects - Taking ibuprofen with clopidogrel (Plavix) and aspirin significantly increases your risk of bleeding - This combination puts you at higher risk for serious bleeding complications Continue taking: - Clopidogrel (Plavix) 75 mg daily - This must be taken for at least 12 months after your stent placement and should not be stopped without discussing with your internal controls specialist - Aspirin as prescribed - Continue your current dose For pain relief, discuss safe alternatives with your internal controls specialist. Acetaminophen (Tylenol) is generally safer, but always check with your doctor first. Head Injury Precautions: Because you struck your face during the fainting episode and are taking blood thinners, watch for signs of bleeding in your head over the next 24-48 hours. S standing rock immediate emergency care if you develop: - Severe or worsening headache - Confusion or difficulty thinking clearly - Repeated vomiting - Vision changes or double vision - Weakness or numbness in your arms or legs - Difficulty speaking or understanding speech - Seizures or loss of consciousness - Clear or bloody fluid from your nose or ears Preventing Future Fainting Episodes: If you feel like you might faint again (warning signs include lightheadedness, nausea, sweating, or feeling warm): - Lie down immediately and elevate your legs - This can help prevent you from losing consciousness and avoid injury - Stay lying down until the symptoms completely resolve When to Seek Emergency Care: Go to the emergency department or call 911 if you experience: - Another fainting episode - Chest pain or pressure - Severe shortness of breath - Palpitations (feeling your heart racing or skipping beats) - Any of the head injury warning signs listed above - Unusual bleeding (bloody or black stools, blood in urine, severe nosebleeds, vomiting blood) - Excessive bruising Follow-Up Care: You must follow up with your internal controls specialist within this week to: - Discuss your syncope episode and determine if further heart rhythm monitoring is needed - Review your medications and ensure you are on the safest regimen - Discuss appropriate pain management options that won't interfere with your blood thinners Activity: - Avoid driving until cleared by your internal controls specialist - Avoid activities where fainting could cause serious injury (climbing ladders, swimming alone, operating heavy machinery) - Stay well-hydrated, especially during your menstrual period Important Reminders: - Never stop taking clopidogrel (Plavix) or aspirin without first talking to your internal controls specialist - Inform all doctors and dentists that you are taking blood thinners before any procedures - You will bruise and bleed more easily while on these medications Print Language: Chinese Coding Level of Care Code ED Nurse Unit Manager for Susan Capellan
[2025-07-21 16:31] LABS: Hematocrit 46.4 % (36-47); Hemoglobin 15.30 g/dL (11.27-16.99); Mean Corpuscular HGB Conc 33.0 g/dL (30-55); Mean Corpuscular Hemoglobin 28.8 pg (27-33); Mean Corpuscular Volume 87.4 fl (85-98); Nucleated Red Blood Cells % 0 %; Platelet Count 313 10^3/cmm (157-399); Red Blood Count 5.31 10^6/uL (3.85-5.65); White Blood Count 11.37 10^3/uL (3.29-11.43)
[2025-07-21 16:36] VITALS: BP 132/92; BP 145/89; BP 149/85; PULSE 79; PULSE 88; PULSE 96
--- OUTSIDE RECORDS SUMMARY | 2025-07-21 16:46 | XMS_ITS | Encounter Summary ---
Author Organization [facility] Address [address] [place] [address] Care Team Providers Care Slip Injector And Applicator Name Role Phone Jarrett Batista MD Primary Care Provider [phone] Encounter Details Date Type Department Care Team (Latest Contact Info) Description 04/25/2004 Outpatient Historical [facility] [address] [address] Franco Espinoza NP NO ADDRESS ON FILE CELLULITIS NOS (Primary Dx); ACNE NEC; ACUTE TONSILLITIS Social History Tobacco Use Types Packs/Day Years Used Date Smoking Tobacco: Never Assessed Comments Unknown Sex and Gender Information Value Date Recorded Sex Assigned at Not on file Legal Sex Female 5:29 AM [employer] Gender Identity Not on file Sexual Orientation Not on file documented as of this encounter Plan of Treatment Not on file documented as of this encounter Visit Diagnoses Diagnosis Cellulitis and abscess of unspecified site- Primary Other acne Acute tonsillitis documented in this encounter Care Teams Slip Injector And Applicator Relationship Specialty Start Date End Date Jarrett Batista MD [address] [address] PCP - General Family Practice 04/11/18 documented as of this encounter
--- OUTSIDE RECORDS SUMMARY | 2025-07-21 16:46 | XMS_ITS | Clinical Summary ---
Author Organization [facility] tone Address [address] [facility] [place] [address] Care Team Providers Care [employer] Professional Name Role Phone Jarrett Batista MD Primary Care Provider +1 [phone] Allergies No known active allergies Medications albuterol HFA 90 mcg inhalerIndication s:Viral upper respiratory infection Take 2 Puffs by inhalation every 6 hours as needed for Shortness of Breath. 8.5 Gram 0 Active overnight pulse oximetryIndicatio ns:Fatigue, unspecified type,Morning headache,Loud snoring Overnight pulse oximetry: One time overnight pulse oximetry test on room air. 1 Each 0 Active vitamin-iron fumarate-folic acid 27 mg-0.8 mg Tablet Take 1 Tablet by mouth daily. Active cpap medical care administrator AutoCPAP @ EPAPmin 4 cwp EPAPmax 20 cwp with heated humidifier. Length of need:99 months; per patient comfort mask with headgear every 6 months; mask only every 3 months; as needed cushions per month; Tubing heated 1 every 3 months, water chamber 1 every 6 months, chin strap 1 every 6 months, filters disposable 2 per month, filters reusable 1 per 6 months. 1 Each 0 Active omeprazole (PriLOSEC) 40 mg Capsule, Delayed Release(E.C.)Gale cations:Epigastri c abdominal pain Take 1 Capsule (40 mg) by mouth daily. 60 Capsule 1 Active labetaloL (NORMODYNE) 100 mg tabletIndications :Benign hypertension Take 0.5 Tablets (50 mg) by mouth 2 times daily. 30 Tablet 1 1 Active Active Problems Problem Noted Date Diagnosed Date DM (diabetes mellitus), type 2 01/25/2021 Peptic disease 03/02/2011 Cervical adenitis 08/09/2010 Immunizations Immunization Administration Dates Next Due (ADACEL/BOOSTRIX)(10 YR UP) TDAP VACCINE, 0.5ML, IM 07/09/2008 (M-M-R II/PRIORIX)(12 MO UP) MEASLES, MUMPS AND RUBELLA VIRUS VACCINE, 0.5 ML IM/SUBCUT 05/12/1998,04/28/1994 (TDVAX)(7 YRS UP) TETANUS AN D DIPHTHERIA TOXOIDS, ADSORBED (2 LF OF TETANUS TOXOID AND 2 LF OF DIPHTHERIA TOXOID), 0.5ML (PF), IM 03/15/2005 Dt Dtp Dtap Vaccine 05/12/1998, 4,06/24/1993,1992,02/01/1993 HIB, Unspecified Formulation 04/28/1994, 06/24/1993,04/05/1993,1992 Hepatitis B Vaccine 06/24/1993,02/01/1993,1992 INFLUENZA VACCINE QUADRIVALE NT 6 MOS UP PF IM 09/01/2020 IPV/OPV 05/12/1998, 4,04/05/1993,1992 Influenza Seasonal Unspecifi ed Formulation IM 05/29/2008 Family History Medical History Relation Name Comments Healthy Father Other Maternal Grandfather pnemoni a Healthy Maternal Grandmother Healthy Mother Other Mother non hodskin lym phoma Colon Cancer Other mgaunt x 2 Hypertension Paternal Grandfather Lung Cancer Paternal Grandfather Diabetes Paternal Grandmother Breast Cancer Neg Hx Relation Name Status Comments Father Maternal Grandfather Maternal Grandmother Mother Other mgaunt x 2 Alive Paternal Grandfather Paternal Grandmother Social History Tobacco Use Types Packs/Day Years Used Date Smoking Tobacco: Never Smokeless Tobacco: Never Tobacco Cessation:Counseling Given: No Alcohol Use Standard Drinks/Week Comments No 0 (1 standard drink = 0.6 oz pur e alcohol) Comments No Sex and Gender Information Value Date Recorded Sex Assigned at Not on file Legal Sex Female 5:29 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 Gender Identity Not on file Sexual Orientation Not on file Occupation Industry Job Start Date Job End Date Not on file Not on file Not on file Not on file Last Filed Vital Signs Vital Sign Reading Time Taken Comments Blood Pressure 128/80 01/25/2021 3:53 PM CDT Pulse 64 01/25/2021 3:53 PM CDT Temperature 36.8 C (98.3 F) 01/25/2021 3:53 PM CDT Respiratory Rate 20 01/25/2021 3:53 PM CDT Oxygen Saturation 99% 01/25/2021 3:53 PM CDT Inhaled Oxygen Concentration - - Weight 109.9 kg (242 lb 3.2 oz) 01/25/2021 3:53 PM CDT Height 165.1 cm (5' 5 ) 01/25/2021 3:53 PM CDT Body Mass Index 40.3 01/25/2021 3:53 PM CDT Plan of Treatment Health Maintenance Due Date Last Done Comments DIABETES ANNUAL FOOT EXAM 2010 DIABETES ANNUAL RETINAL EXAM 2010 DIABETES MICROALBUMIN ANNUAL SCREEN 2010 HPV/Cotest (21-29) 2013 LDL CHOLESTEROL ANNUAL 01/15/2016 01/14/2015 DTAP/TDAP/TD VACCINES (7 - T d or Tdap) 07/09/2018 07/09/2008, 03/15/2005, 05/12/1998, Additional history exists DIABETES HBA1C Q 6 MONTHS 06/25/2021 12/23/2020, 06/2015 CERVICAL CANCER SCREENING 2022 HPV/Cotest (30-65) 2022 PAP SMEAR 2022 Preventative Visit- Commercial 08/06/2024 03/15/2005 INFLUENZA VACCINE (#1) 2025 09/01/2020, 2007 HEPATITIS B VACCINES Completed 06/24/1993, 02/01/1993, 1992 HPV VACCINES (No Doses Required) Completed Procedures Procedure Name Priority Date/Time Associated Diagnosis Comments HEMOGLOBIN A1C Routine 12/23/2020 2:43 PM CDT Elevated blood sugar LIPID PANEL Routine 01/14/2015 10:23 AM CDT Elevated blood sugar from Last 3 Months or Most Recently Relevant to Health Maintenance Results * (ABNORMAL) HEMOGLOBIN A1C (12/23/2020 2:43 PM CDT) HEMOGLOBIN A1C 10.4(H) See Comment % 12/23/2020 8:30 PM CDT [facility] EST. AVG GLUCOSE, A1C 252 mg/dL 12/23/2020 8:30 PM CDT [facility] Blood Collection / Unknown 12/23/2020 2:43 PM CDT 12/23/2020 8:03 PM CDT Narrative [facility] - 12/23/2020 8:30 PM CDT HGB A1C INTERPRETATION NORMAL: <5.7% PRE-DIABETES: 5.7 - 6.4% DIABETES: 6.5% OR GREATER Falsely low A1C measurements can occur when: 1. Anemia and/or hemolytic anemia is present. 2. Hemoglobin variants present. 3. Renal failure. 4. Transfusion of blood product in the last 120 days. We recommend ordering a fructosamine test([id number]) to more accurately assess glycemic status if any of the above conditions are present. us Rhiannon Carmen CRACKER OFF CHEMISTRY ORDERABLES Final Resul t [facility] CLIA# [id number] [facility] [place] [address] * (ABNORMAL) LIPID PANEL (01/14/2015 10:23 AM CDT) CHOLESTEROL 172 100 - 200 MG/DL [facility] TRIGLYCERIDE 389(H) 0 - 150 MG/DL [facility] HDL 27(L) 40 - 60 MG/DL [facility] LDL CALCULATED 67 58 - 100 MG/DL [facility] Comment: CALCULATED LDL REFERENCE: < 100 Optimal 100 - 129 Near Optimal 130 - 159 Borderline High > 160 High Risk TOTAL NON-HDL CHOL(LDL+VLDL) 145 MG/DL [facility] Comment: NON HDL CHOLESTEROL mg/dL OPTIMAL <130 NEAR OPTIMAL 130-159 BORDERLINE HIGH 160-189 HIGH 190-219 VERY HIGH >=220 Blood specimen (specimen) 01/14/2015 10:23 AM CDT 01/14/2015 10:24 AM CDT us Khmer Cameron Bartholomew MD CHEMISTRY ORDER VON Final Result [facility] CLIA# [id number] [facility] [place] [address] from Last 3 Months or Most Recently Relevant to Health Maintenance Insurance MEDICA BALANCE [facility] Care Teams Middle School Professional Relationship Specialty Start Date End Date Jarrett Batista MD [address] [phone] PCP - General Family Practice 04/11/18
--- OUTSIDE RECORDS SUMMARY | 2025-07-21 16:46 | XMS_ITS | Encounter Summary ---
Author Organization [facility] Address [address] [place] [address] Care Team Providers Care Resin Remover Name Role Phone Jarrett Batista MD Primary Care Provider +1 [phone] Encounter Details Date Type Department Care Team (Latest Contact Info) Description 11/30/2003 Outpatient Historical [facility] Family Medicine- [place] [address] [place] [phone] Addie King MD NO ADDRESS ON FILE STREP SORE THROAT (Primary Dx) Social History Tobacco Use Types Packs/Day Years Used Date Smoking Tobacco: Never Assessed Comments Unknown Sex and Gender Information Value Date Recorded Sex Assigned at Not on file 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
--- OUTSIDE RECORDS SUMMARY | 2025-07-21 16:47 | XMS_ITS | Encounter Summary ---
Author Organization [facility] Address [address] [place] [address] Care Team Providers Care Concrete Engineer Name Role Phone Jarrett Batista MD Primary Care Provider +1 [phone] Encounter Details Date Type Department Care Team (Latest Contact Info) Description 03/15/[address] 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
--- OUTSIDE RECORDS SUMMARY | 2025-07-21 16:47 | XMS_ITS | Encounter Summary ---
Author Organization [facility] Address [address] [place] [address] Care Team Providers Care Coal Digger Name Role Phone Jarrett Batista MD Primary Care Provider +1 -[phone] Encounter Details Date Type Department Care Team (Latest Contact Info) Description 04/11/2005 Outpatient Historical [facility] Family Medicine [place] [address] [address] Lidia Novoa, COAL CUTTING MACHINE OPERATOR [address] [place] [address] ACUTE TONSILLITIS (Primary Dx) Social History Tobacco Use Types Packs/Day Years Used Date Smoking Tobacco: Never Assessed Comments Unknown Sex and Gender Information Value Date Recorded Sex Assigned at Not on file 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
--- OUTSIDE RECORDS SUMMARY | 2025-07-21 16:47 | XMS_ITS | Clinical Summary ---
Author Organization [facility] tone Address [address] [place] [address] Care Team Providers Care Waterproofing Supervisor Name Role Phone Jarrett Batista MD Primary Care Provider +1 -[phone] Allergies No known active allergies Medications cpap medical assistant float AutoCPAP @ EPAPmin 4 cwp EPAPmax 20 [...] 1 per 6 months. 1 Each 0 0 Active albuterol sulfate 90 mcg/Actuation inhaler Take 2 Puffs by inhalation every 6 hours as needed for Shortness of Breath. 8.5 Gram 2 Active metFORMIN (GLUCOPHAGE) 500 mg tablet Take 1 Tablet (500 mg) by mouth daily. 30 Tablet 2 Active Trulicity 1.5 mg/0.5 mL injection INJECT 0.5ML (1.5MG) SUBCUTANEOUSLY EVERY 7 DAYS 12 mL 3 Active Blood-Glucose Meter Kit Check blood sugar daily. 1 Each 3 Active blood sugar diagnostic Strip Check blood sugar daily. 100 Each 11 3 Active lancets Check blood sugar daily 100 Each 10 3 Active Active Problems Problem Noted Date Diagnosed Date Morbid obesity with body mass index of 40.0-49.9 12/12/2021 DM (diabetes mellitus), type 2 01/25/2021 Peptic disease 03/02/2011 Cervical adenitis 08/09/2010 Immunizations Immunization Administration Dates Next Due (ADACEL/BOOSTRIX)(10 YR UP) TDAP VACCINE, 0.5ML, IM 07/09/2008 (M-M-R II/PRIORIX)(12 MO UP) MEASLES, MUMPS AND RUBELLA VIRUS VACCINE, 0.5 ML IM/SUBCUT 05/12/1998,04/28/1994 (PFIZER)(12 YR UP) COVID-19 VACCINE - EMERGENCY USE AUTHORIZATION, MRNA, [id number](PF) 30 MCG/0.3 ML IM SUSP 08/24/2021,03/23/2021,03/02/2021 (TDVAX)(7 YRS UP) TETANUS AN D DIPHTHERIA TOXOIDS, ADSORBED (2 LF OF TETANUS TOXOID AND 2 LF OF DIPHTHERIA TOXOID), 0.5ML (PF), IM 03/15/2005 Dt Dtp Dtap Vaccine 05/12/1998, 4,06/24/1993,1992,02/01/1993 HIB, Unspecified Formulation 04/28/1994, 06/24/1993,04/05/1993,1992 Hepatitis B Vaccine 06/24/1993,02/01/1993,1992 INFLUENZA VACCINE QUADRIVALE NT 6 MOS UP PF IM 09/01/2020 IPV/OPV 05/12/1998, 4,04/05/1993,1992 Influenza Seasonal Unspecifi ed Formulation IM 05/06/2021,05/29/2008 Family History Medical History Relation Name Comments [...] at Not on file Legal Sex Female 5:17 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 Gender Identity Not on file Sexual Orientation Not on file Last Filed Vital Signs Vital Sign Reading Time Taken Comments Blood Pressure 138/82 06/01/2022 4:35 PM CDT Pulse 103 06/01/2022 4:35 PM CDT Temperature 36.2 C (97.2 F) 06/01/2022 4:35 PM CDT Respiratory Rate 8 06/01/2022 4:35 PM CDT Oxygen Saturation 99% 06/01/2022 4:35 PM CDT Inhaled Oxygen Concentration - - Weight 111.1 kg (245 lb) 06/01/2022 4:35 PM CDT Height 165.1 cm (5' 5 ) 06/01/2022 4:35 PM CDT Body Mass Index 40.77 06/01/2022 4:35 PM CDT Plan of Treatment Health Maintenance Due Date Last Done Comments DIABETES ANNUAL RETINAL EXAM 2010 Preventative Visit-Managed Medicaid 12/06/2011 HPV/Cotest (21-29) 2013 LDL CHOLESTEROL ANNUAL 01/15/2016 01/14/2015 DTAP/TDAP/TD VACCINES (7 - T d or Tdap) 07/09/2018 07/09/2008, 03/15/2005, 05/12/1998, Additional history exists DIABETES HBA1C Q 6 MONTHS 06/14/20222021, 12/23/2020, 12/23/2020, Additional history exists CERVICAL CANCER SCREENING 2022 HPV/Cotest (30-65) 2022 PAP SMEAR 2022 DIABETES ANNUAL FOOT EXAM 12/12/2022 12/12/2021 DIABETES MICROALBUMIN ANNUAL SCREEN 12/12/2022 12/12/2021 INFLUENZA VACCINE (#1) 2025 , 09/01/2020, 05/29/2008 COVID-19 Vaccine (4 - 2025-2 6 season) 2025 08/24/2021, 03/23/2021, 03/02/2021 HEPATITIS B VACCINES Completed 06/24/1993, 02/01/1993, 1992 HPV VACCINES (No Doses Required) Completed Procedures Procedure Name Priority Date/Time Associated Diagnosis Comments MICROALBUMIN/CREATIN INE RATIO, RANDOM UR Routine 12/12/2021 4:02 PM CDT Type 2 diabetes mellitus without complication, without long-term current use of insulin ([facility]) HEMOGLOBIN A1C Routine 12/12/2021 4:02 PM CDT Type 2 diabetes mellitus without complication, without long-term current use of insulin ([facility]) LIPID PANEL Routine 01/14/2015 10:23 AM CDT from Last 3 Months or Most Recently Relevant to Health Maintenance Results * MICROALBUMIN/CREATININE RATIO, RANDOM UR (12/12/2021 4:02 PM CDT) Creatinine, Urine 130 20 - 275 mg/dL [facility] MICROALBUMIN, URINE 3.1 See Note: mg/dL [facility] Comment: Reference Range: Reference Range Not established MICROALBUMIN/CREAT RATIO, UR 24 <30 mcg/mg creat [facility] Comment: The ADA defines abnormalities in albumin excretion as follows: Albuminuria Category Result (mcg/mg creatinine) Normal to Mildly increased <30 Moderately increased 30-299 Severely increased > OR = 300 The ADA recommends that at least two of three specimens collected within a 3-6 month period be abnormal before considering a patient to be within a diagnostic category. Test Performed at: [facility] [address] [place] [address] Shivam Rawls D.O., MPH Urine URINE SPECIMEN OBTAINED BY CLEAN CATCH PROCEDURE / Unknown 12/12/2021 4:02 PM CDT 12/14/2021 5:59 AM CDT us Rhiannon REEDERP URINE ORDERABLES Final Result [facility] [phone] * (ABNORMAL) HEMOGLOBIN A1C (12/12/2021 4:02 PM CDT) HEMOGLOBIN A1C 9.1(H) <5.7 % of total Hgb [facility] Comment: For someone without known diabetes, a hemoglobin A1c value of 6.5% or greater indicates that they may have diabetes and this should be confirmed with a follow-up test. For someone with known diabetes, a value <7% indicates that their diabetes is well controlled and a value greater than or equal to 7% indicates suboptimal control. A1c targets should be individualized based on duration of diabetes, age, comorbid conditions, and other considerations. Currently, no consensus exists regarding use of hemoglobin A1c for diagnosis of diabetes for children. ESTIMATED AVERAGE GLUCOSE (MG/DL) 214 mg/dL [facility] ESTIMATED AVERAGE GLUCOSE (MMOL/L) 11.9 mmol/L [facility] Comment: Test Performed at: [facility] [address] [place] [address] Shivam Rawls D.O., MPH Blood 12/12/2021 4:02 PM CDT 12/14/2021 5:19 AM CDT us Rhiannon Carmen NURSING COORDINATOR CHEMISTRY ORDERABLES Final Resul t [facility] [phone] * (ABNORMAL) LIPID PANEL (01/14/2015 10:23 AM CDT) CHOLESTEROL 172 100 - 200 MG/DL 01/14/2015 10:01 PM T [facility] TRIGLYCERIDE 389(H) 0 - 150 MG/DL 01/14/2015 10:01 PM T [facility] HDL 27(L) 40 - 60 MG/DL 01/14/2015 10:01 PM T [facility] LDL CALCULATED 67 58 - 100 MG/DL 01/14/2015 10:01 PM T [facility] Comment: CALCULATED LDL REFERENCE: < 100 Optimal 100 - 129 Near Optimal 130 - 159 Borderline High > 160 High Risk TOTAL NON-HDL CHOL(LDL+VLDL) 145 MG/DL 01/14/2015 10:01 PM CDT [facility] Comment: NON HDL CHOLESTEROL mg/dL OPTIMAL <130 NEAR OPTIMAL 130-159 BORDERLINE HIGH 160-189 HIGH 190-219 VERY HIGH >=220 Blood 01/14/2015 10:2 3 AM CDT 01/14/2015 10:24 AM CDT Spanish Cameron Bartholomew MD CHEMISTRY ORDER VON Final Result [facility] CLIA# [id number] [address] [place] [address] from Last 3 Months or Most Recently Relevant to Health Maintenance Insurance [facility] [id number] Care Teams Waterproofing Supervisor Relationship Specialty Start Date End Date Jarrett Batista MD [address] [phone] PCP - General Family Practice 04/11/18
--- OUTSIDE RECORDS SUMMARY | 2025-07-21 16:47 | XMS_ITS | Encounter Summary ---
Author Organization [facility] Address [address] [place] [address] Care Team Providers Care Psychodramatist Name Role Phone Jarrett Batista MD Primary Care Provider +1 [phone] Encounter Details Date Type Department Care Team (Latest Contact Info) Description 08/17/2004 Outpatient Historical [facility] Medicine [place] [address] [phone] Addie King MD NO ADDRESS ON FILE STREP SORE THROAT (Primary Dx) Social History Tobacco Use Types Packs/Day Years Used Date Smoking Tobacco: Never Assessed Comments Unknown Sex and Gender Information Value Date Recorded Sex Assigned at Not on file Legal Sex Female 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
--- OUTSIDE RECORDS SUMMARY | 2025-07-21 16:47 | XMS_ITS | Encounter Summary ---
Author Organization [facility] Address [address] [place] [address] Care Team Providers Care Pilot Submersible Name Role Phone Jarrett Batista MD Primary Care Provider +1 -[phone] Encounter Details Date Type Department Care Team (Latest Contact Info) Description 04/18/2005 Outpatient Historical [facility] Medicine [address] [address] Jovan Green MD [address] [phone] OTITIS MEDIA NOS (Primary Dx); ACUTE PHARYNGITIS Social History Tobacco Use Types Packs/Day Years Used Date Smoking Tobacco: Never Assessed Comments Unknown Sex and Gender Information Value Date Recorded Sex Assigned at Not on file 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
--- OUTSIDE RECORDS SUMMARY | 2025-07-21 16:47 | XMS_ITS | Encounter Summary ---
Author Organization [facility] Address [address] [place] [address] Care Team Providers Care Transportation Engineer Name Role Phone Jarrett Batista MD Primary Care Provider +1 -[phone] Encounter Details Date Type Department Care Team (Latest Contact Info) Description 08/27/2006 Outpatient Historical [facility] Medicine [place] [address] [address] Franco Espinoza NP NO ADDRESS ON FILE Vomiting Alone (Primary Dx); Acute Pharyngitis; Fever Social History Tobacco Use Types Packs/Day Years Used Date Smoking Tobacco: Never Assessed Comments Unknown Sex and Gender Information Value Date Recorded Sex Assigned at Not on file 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
--- NOTE | 2025-07-21 16:48 | ECG_ITS ---
[email or web address] Test Date: 2025-07-21 Pat Name: Jeannie Zamora Department: Room: Gender: Female Auditor/Quality: : 1990 Requested By: Nicki Candelaria Order Number: [id number] Beckford MD: Kailash Esqueda M.D. Measurements Intervals [place] Rate: 82 P: 57 WI: 161 QRS: 48 QRSD: 89 T: 34 QT: 386 QTc: 453 Interpretive Statements SINUS RHYTHM POSSIBLE LEFT ATRIAL ENLARGEMENT [-0.1mV P-WAVE IN V1/V2] Compared to ECG 07/21/2025 16:11:44 Myocardial infarct finding no longer present Electronically Signed On 07-21-2025 21:40:10 MANAGER OF INFORMATION by Kailash Esqueda M.D. [email or web address]
[2025-07-21 16:53] LABS: Alanine Aminotransferase 21 U/L (0-33); Albumin Level 4.3 g/dL (3.5-5.2); Alkaline Phosphatase 31 U/L (35-105); Anion Gap 20.6 (5-19); Aspartate Amino Transferase 14 U/L (0-32); Blood Urea Nitrogen 20 mg/dL (6-20); Calcium 9.4 mg/dL (8.5-10.5); Carbon Dioxide 24 mmol/L (22-29); Chloride 95 mmol/L (98-107); Globulin 3.1 g/dL (1.3-4.6); Glucose 331 mg/dL (65-115); Osmolality Calculated 296 mOsm/kg (285-295); Potassium 4.6 mmol/L (3.5-5.1); Sodium 135 mmol/L (136-145); Total Protein 7.4 g/dL (6.6-8.7)
[2025-07-21 16:58] LABS: Glucose Urine UA 3+ (Normal); Nitrate Urine Negative (Negative); Specific Gravity, Urine 1.030 (1.005-1.030)
[2025-07-21 17:08] LABS: Troponin(5th) Baseline 13 ng/L (0-10)
[2025-07-21 17:16] LABS: HCG, Serum Qual Negative (Negative)
[2025-07-21 18:04] VITALS: PULSE 78; O2SAT 99
[2025-07-21 18:25] VITALS: BP 136/98; PULSE 79; O2SAT 96
== END 2025-07-21 18:28 | disposition home or self-care (01) ==
PROVIDERS: Emergency Medicine; Emergency Provider Physician Assistant; PCP Registered Nurse
DX: R55 Syncope and collapse (principal); I10 Essential (primary) hypertension; E11.9 Type 2 diabetes mellitus without complications; Z79.4 Long term (current) use of insulin
CPT/HCPCS: 36415; 71045; 80053; 81001; 84484; 84703; 85025; 93005; 99285